=== PATIENT | male | born 1945 | race Caucasian/White ===

== ENCOUNTER 2020-01-31 06:34 | Outpatient (CLI) | payer OTHER, SELFPAY ==
[2020-01-31 07:12] LABS: Basophils Percent Auto 0.7 % (0.2-1.2); Eosinophils Absolute Auto 0.1 K/mm3 (0-0.3); Eosinophils Percent Auto 1.9 % (0-4.4); Hematocrit 42.3 % (42.0-52.0); Hemoglobin 14.2 g/dL (14.0-18.0); Immature Granulocyte Absolute 0.02 K/mm3 (0.00-0.031); Immature Granulocyte Percent A 0.3 % (0-0.5); Lymphocytes Absolute Auto 1.46 K/mm3 (0.9-3.2); Lymphocytes Percent Auto 25.3 % (18.3-44.2); Mean Corpuscular HGB Conc 33.6 g/dl (32-36); Mean Corpuscular Hemoglobin 31.4 pg (26-34); Mean Corpuscular Volume 93.6 fl (80-100); Mean Platelet Volume 10.2 fl (7.4-10.4); Monocytes Absolute Auto 0.7 K/mm3 (0.1-0.6); Monocytes Percent Auto 12.8 % (2.6-8.5); Neutrophils Absolute Auto 3.4 K/mm3 (1.3-6.7); Platelet Count Result 160 k/mm3 (150-375); Red Blood Count 4.52 M/mm3 (4.6-6.20); Red Cell Distribution Width 12.7 % (11.5-14.5); White Blood Count 5.8 K/mm3 (4.5-10.0)
[2020-01-31 07:25] LABS: Alanine Aminotransferase 15 U/L (4-50); Albumin Level 4.4 g/dL (3.5-5.1); Alkaline Phosphatase 82 U/L (38-126); Anion Gap 7 mmol/L (8-16); Aspartate Amino Transferase 22 U/L (17-59); Bilirubin,Total 0.5 mg/dL (0.2-1.3); Blood Urea Nitrogen 20 mg/dL (9-20); Calcium 9.8 mg/dL (8.4-10.2); Carbon Dioxide 30 mmol/L (22-30); Chloride 102 mmol/L (98-107); Estimated Glomerular Filt Rate 59; Glucose 70 mg/dL (75-110); Potassium 4.3 mmol/L (3.4-5.0); Sodium 139 mmol/L (137-145)
== END 2020-01-31 06:35 | disposition home or self-care (01) ==
PROVIDERS: PCP Internal Medicine; Visit Provider Internal Medicine
DX: E03.9 Hypothyroidism, unspecified (principal); R23.2 Flushing
CPT/HCPCS: 36415; 80053; 84443; 85025

== ENCOUNTER 2020-02-03 06:53 | Outpatient (CLI) | payer OTHER, SELFPAY | END 2020-02-03 06:54 | disposition home or self-care (01) | LOC: ANHLAB 06:55 | PROVIDERS: PCP Internal Medicine; Visit Provider Internal Medicine | DX: R23.2 Flushing (principal) | CPT/HCPCS: 36415; 83520 ==

== ENCOUNTER 2020-02-05 06:33 | Outpatient (CLI) | payer OTHER, SELFPAY | END 2020-02-05 06:34 | disposition home or self-care (01) | PROVIDERS: PCP Internal Medicine; Visit Provider Internal Medicine | DX: R23.2 Flushing (principal) | CPT/HCPCS: 83497 ==

== ENCOUNTER 2020-09-24 12:30 | Outpatient (CLI) | payer OTHER, SELFPAY ==
--- NOTE | 2020-09-24 12:52 | ECHO_ITS ---
Patient Info Name: Nelson Friedman Young Age: 74 years : 1945 Gender: Male Ht: 70 in Wt: 160 lbs BSA: 1.89 m2 HR: 68 bpm BP: 143 / 81 mmHg Technical Quality: Good Exam Date: 09/24/2020 1:29 PM Exam Location: [facility] Patient Status: Outpatient Admit Date: 09/24/2020 Staff Ordering Physician: Abiel Siegel APRN [employer] Supervisor: Rey Gong RDCS, RT Attending Provider: Abiel Siegel APRN Referring Physician: Robbin CANTU; Exam Type: CA echo doppler color flow Study Info Indications R01.1 - Cardiac murmur, unspecified Complete two-dimensional, color flow and Doppler transthoracic echocardiogram is performed. Strain analysis performed. Summary 1. Complete two-dimensional, color flow and Doppler transthoracic echocardiogram is performed. 2. Left ventricular chamber dimension is normal. 3. Left ventricular systolic function is normal, estimated at 60-65%. 4. There is mildly increased left ventricular wall thickness. 5. The left ventricular diastolic function is grade I diastolic dysfunction. 6. E/e' 12 is mildly elevated. 7. Global longitudinal strain is normal at -18.8%. 8. There is severe aortic valve sclerosis. 9. There is mild aortic valve regurgitation. 10. There is critical aortic valve stenosis with a peak velocity of 559 cm/s, mean gradient of 64 mmHg, and aortic valve area of 0.5 cm2. 11. There is mild to moderate mitral valve regurgitation. 12. There is trace tricuspid valve regurgitation. 13. No pulmonary hypertension, estimated pulmonary arterial systolic pressure is 35 mmHg. 14. Dilated inferior vena cava with >50% collapse upon inspiration consistent with elevated right atrial pressure, 10 mmHg. Left Ventricle E/e' 12 is mildly elevated. Global longitudinal strain is normal at -18.8%. Left ventricular chamber dimension is normal. Left ventricular systolic function is normal, estimated at 60-65%. There is mildly increased left ventricular wall thickness. The left ventricular diastolic function is grade I diastolic dysfunction. Right Ventricle Right ventricular systolic function is normal and with normal TAPSE 3.0 cm. Right ventricular chamber dimension is normal. Left Atria Left atrial chamber dimension is normal. Right Atria Right atrial chamber dimension is normal. Aortic Valve There is critical aortic valve stenosis with a peak velocity of 559 cm/s, mean gradient of 64 mmHg, and aortic valve area of 0.5 cm2. The aortic valve is probable trileaflet. There is severe aortic valve sclerosis. There is mild aortic valve regurgitation. Pulmonic Valve There is no pulmonic regurgitation. Mitral Valve There is no mitral valve stenosis. There is mild to moderate mitral valve regurgitation. Tricuspid Valve There is trace tricuspid valve regurgitation. No pulmonary hypertension, estimated pulmonary arterial systolic pressure is 35 mmHg. Pericardium/Pleural There is no pericardial effusion. Inferior Vena Cava Dilated inferior vena cava with >50% collapse upon inspiration consistent with elevated right atrial pressure, 10 mmHg. Aorta The aortic root size at the sinus of Valsalva is normal. Left Ventricular Outflow Tract Name Value Normal LVOT 2D LVOT Diameter
== END 2020-09-24 12:31 | disposition home or self-care (01) ==
PROVIDERS: PCP Internal Medicine; Visit Provider Nurse Practitioner
DX: R01.1 Cardiac murmur, unspecified (principal); I08.3 Combined rheumatic disorders of mitral, aortic and tricuspid valves; R93.1 Abnormal findings on diagnostic imaging of heart and coronary circulation
CPT/HCPCS: 93306

== ENCOUNTER 2020-09-28 15:59 | Outpatient (CLI) | payer OTHER, SELFPAY ==
[2020-09-28 16:23] LABS: Basophils Percent Auto 0.6 % (0.2-1.2); Eosinophils Absolute Auto 0.1 K/mm3 (0-0.3); Eosinophils Percent Auto 1.4 % (0-4.4); Hemoglobin 14.1 g/dL (14.0-18.0); Immature Granulocyte Absolute 0.05 K/mm3 (0.00-0.031); Immature Granulocyte Percent A 0.7 % (0-0.5); Lymphocytes Absolute Auto 1.43 K/mm3 (0.9-3.2); Lymphocytes Percent Auto 20.3 % (18.3-44.2); Mean Corpuscular HGB Conc 33.6 g/dl (32-36); Mean Corpuscular Hemoglobin 31.3 pg (26-34); Mean Corpuscular Volume 93.1 fl (80-100); Mean Platelet Volume 10.2 fl (7.4-10.4); Monocytes Absolute Auto 0.8 K/mm3 (0.1-0.6); Monocytes Percent Auto 11.8 % (2.6-8.5); Neutrophils Absolute Auto 4.6 K/mm3 (1.3-6.7); Neutrophils Percent Auto 65.2 % (45.5-73.1); Platelet Count Result 175 k/mm3 (150-375); Red Blood Count 4.51 M/mm3 (4.6-6.20); Red Cell Distribution Width 12.5 % (11.5-14.5)
[2020-09-28 16:32] LABS: Alanine Aminotransferase 13 U/L (4-50); Albumin Level 4.3 g/dL (3.5-5.1); Alkaline Phosphatase 83 U/L (38-126); Anion Gap 9 mmol/L (8-16); Aspartate Amino Transferase 24 U/L (17-59); Bilirubin,Total 0.5 mg/dL (0.2-1.3); Blood Urea Nitrogen 25 mg/dL (9-20); Calcium 9.4 mg/dL (8.4-10.2); Carbon Dioxide 26 mmol/L (22-30); Chloride 102 mmol/L (98-107); Estimated Glomerular Filt Rate > 60; Glucose 95 mg/dL (75-110); Potassium 4.3 mmol/L (3.4-5.0); Sodium 137 mmol/L (137-145)
== END 2020-09-28 16:00 | disposition home or self-care (01) ==
PROVIDERS: PCP Internal Medicine; Visit Provider Internal Medicine Cardiovascular Disease
DX: I35.0 Nonrheumatic aortic (valve) stenosis (principal)
CPT/HCPCS: 36415; 80053; 85025

== ENCOUNTER 2020-10-03 06:17 | Emergency (ER) | payer OTHER, SELFPAY ==
--- NOTE | ~2020-10-03 | XR_ITS ---
EXAMINATION: XR chest 2V DATE: 10/03/2020 06:54 INDICATION: Shortness of breath TECHNIQUE: AP and lateral views of the chest are obtained. COMPARISON: 09/02/2015 FINDINGS: The lungs are free of acute opacities. There is no pleural effusion or pneumothorax. The ca rdiomediastinal silhouette is normal. There is moderate thoracic spondylosis. IMPRESSION: 1. No acute cardiopulmonary abnormality. Reviewed, dictated and finalized at location A.
[2020-10-03 06:23] VITALS: BP 118/84; PULSE 90; RESP 18; TEMP 36.6; O2SAT 99
--- NOTE | 2020-10-03 06:33 | ECG_ITS ---
Measurements Intervals [place] Rate: 89 P: 50 MA: 161 QRS: -53 QRSD: 90 T: 11 QT: 361 QTc: 441 Interpretive Statements SINUS RHYTHM LEFT AXIS DEVIATION ANTEROSEPTAL INFARCT, AGE INDETERMINATE BASELINE ARTIFACT- II, III, AVR, AVF, V1-V2 ABNORMAL ECG Electronically Signed On 10-03-2020 6:56:17 CDT by Ambrocio Hinton D.O.
--- NOTE | 2020-10-03 06:45 | ED.SOB ---
HPI - SOB/Dyspnea General Chief Complaint: Shortness of Breath/Dyspnea <Juan Alamo MD - Last Filed: 10/03/20 06:48> Stated Complaint: sob <Juan Alamo MD - Last Filed: 10/03/20 06:48> Time Seen by Provider: 10/03/20 06:28 <Juan Alamo MD - Last Filed: 10/03/20 06:48> History of Present Illness HPI Narrative: Patient is a 74-year-old male who presents ER with shortness of breath. Woke up at 3 AM feeling very short of breath. Reports he felt like his is able to calm him down by having him take deep breaths. [place] like he was having some chest pressure at the time. Patient recently diagnosed with severe aortic stenosis and is undergoing work-up for possible valve replacement. He underwent cardiac catheterization on 10/01/[address] at [facility] by Dr. Bui. He is currently seeing Dr. Campbell here. Resting comfortably at this time free of CP/SOA. <Juan Alamo MD - Last Filed: 10/03/20 06:48> Related Data Home Medications: Home Medications Medication Instructions Recorded Confirmed doxycycline hyclate 20 mg capsule 40 mg PO DAILY cap 09/03/20 09/03/20 fluticasone propionate 50 2 spray NASAL DAILY PRN ml 09/03/20 09/03/20 mcg/actuation nasal spray,suspension loratadine 10 mg tablet 10 mg PO DAILY PRN tablet 09/03/20 09/03/20 <Juan Alamo MD - Last Filed: 10/03/20 06:48> Allergies/Adverse Reactions: Allergies Allergy/AdvReac Type Severity Reaction Status Date / Time No Known Allergies Allergy Verified 09/03/20 08:08 <Juan Alamo MD - Last Filed: 10/03/20 06:48> Review of Systems Review of Systems: All systems reviewed & are unremarkable except as noted in HPI and below <Juan Alamo MD - Last Filed: 10/03/20 06:48> Constitutional: Constitutional: Denies chills, Denies fever(s) and Denies weakness <Juan Alamo MD - Last Filed: 10/03/20 06:48> ENT: Denies nasal congestion and Denies sore throat <Juan Alamo MD - Last Filed: 10/03/20 06:48> Cardiovascular: Cardiovascular: Reports chest pain, Denies rapid heart rate and Denies radiating jaw, neck or arm pain <Juan Alamo MD - Last Filed: 10/03/20 06:48> Respiratory: Respiratory: Denies cough, Reports dyspnea and Denies wheezing <Juan Alamo MD - Last Filed: 10/03/20 06:48> Gastrointestinal: Gastrointestinal: Denies abdominal pain, Denies nausea and Denies vomiting <Juan Alamo MD - Last Filed: 10/03/20 06:48> PMFSH Past Medical History Medical History: Medical History (Updated 10/03/20 @ 09:37 by Eliud Paez MD) Anxiety Aortic stenosis, severe Benign prostatic hyperplasia without lower urinary tract symptoms Environmental allergies GERD (gastroesophageal reflux disease) Hordeolum externum left lower eyelid Hyperlipidemia Insect bite of lower leg Other and unspecified hyperlipidemia <Juan Alamo MD - Last Filed: 10/03/20 06:48> Family History Family History: Family History Mother Family history of malignant neoplasm Patient's mother is Sibling Patient's sister is in good health Patient's brother is in good health Father Patient's father is <Juan Alamo MD - Last Filed: 10/03/20 06:48> Social History Social History: Social History (Updated 09/03/20 @ 08:13 by Jazzmine Tavares MA) Second hand tobacco smoke exposure: No Alcohol intake: current <Juan Alamo MD - Last Filed: 10/03/20 06:48> Exam Narrative: Exam Narrative: GENERAL: Well-appearing, well-nourished, and in no acute distress. HEAD: Normocephalic, atraumatic. ENT: Mucous membranes moist. CHEST: Clear to auscultation. No respiratory distress. HEART: Regular rate and rhythm. Murmur consistent with aortic stenosis. Normal peripheral pulses. ABDOMEN: Soft, nontender, nondistended. EXTREMITIES: Normal range
[2020-10-03 07:11] LABS: Anion Gap 9 mmol/L (8-16); Blood Urea Nitrogen 26 mg/dL (9-20); Calcium 9.4 mg/dL (8.4-10.2); Carbon Dioxide 27 mmol/L (22-30); Chloride 101 mmol/L (98-107); Estimated CRCL calculation 49 ml/min; Estimated Glomerular Filt Rate 59; Glucose 138 mg/dL (75-110); Potassium 4.1 mmol/L (3.4-5.0); Sodium 137 mmol/L (137-145)
[2020-10-03 07:12] VITALS: BP 99/69; PULSE 84; RESP 20; O2SAT 97
[2020-10-03 07:12] LABS: Basophils Absolute Auto 0.1 K/mm3 (0.0-0.1); Basophils Percent Auto 0.9 % (0.2-1.2); Eosinophils Absolute Auto 0.2 K/mm3 (0-0.3); Eosinophils Percent Auto 2.7 % (0-4.4); Hemoglobin 14.1 g/dL (14.0-18.0); Immature Granulocyte Absolute 0.04 K/mm3 (0.00-0.031); Immature Granulocyte Percent A 0.6 % (0-0.5); Lymphocytes Percent Auto 25.1 % (18.3-44.2); Mean Corpuscular HGB Conc 32.8 g/dl (32-36); Mean Corpuscular Hemoglobin 30.9 pg (26-34); Mean Corpuscular Volume 94.1 fl (80-100); Mean Platelet Volume 10.4 fl (7.4-10.4); Monocytes Absolute Auto 0.6 K/mm3 (0.1-0.6); Monocytes Percent Auto 8.3 % (2.6-8.5); Neutrophils Absolute Auto 4.2 K/mm3 (1.3-6.7); Neutrophils Percent Auto 62.4 % (45.5-73.1); Platelet Count Result 177 k/mm3 (150-375); Red Blood Count 4.57 M/mm3 (4.6-6.20); White Blood Count 6.8 K/mm3 (4.5-10.0)
[2020-10-03 07:23] LABS: NT Pro B Type Natriuretic Pept 318 pg/mL (5-100)
[2020-10-03 08:11] VITALS: BP 101/68; PULSE 82; RESP 20; O2SAT 95
[2020-10-03 09:15] VITALS: BP 118/81; PULSE 75; RESP 20; O2SAT 99
[2020-10-03 09:57] LABS: Troponin I 0.015 ng/mL (0.000-0.034)
[2020-10-03 10:09] VITALS: BP 118/80; PULSE 79; RESP 20; O2SAT 100
== END 2020-10-03 10:11 | disposition home or self-care (01) ==
PROVIDERS: Emergency Medicine; Emergency Provider Family Medicine; PCP Internal Medicine
DX: F41.9 Anxiety disorder, unspecified (principal); R06.02 Shortness of breath; I35.0 Nonrheumatic aortic (valve) stenosis; N40.0 Benign prostatic hyperplasia without lower urinary tract symptoms; K21.9 Gastro-esophageal reflux disease without esophagitis; E78.5 Hyperlipidemia, unspecified; R94.31 Abnormal electrocardiogram [ECG] [EKG]
CPT/HCPCS: 36415; 71046; 80048; 83880; 84484; 85025; 93005; 99284

== ENCOUNTER 2020-11-28 17:11 | Emergency (ER) | payer OTHER, SELFPAY ==
[2020-11-28 17:18] VITALS: BP 141/89; PULSE 84; RESP 16; TEMP 37; O2SAT 100
--- NOTE | 2020-11-28 17:45 | ED.MALEGU ---
HPI - Male Genitourinary General Chief complaint: Urogenital-Male Stated complaint: FLANK PAIN Source: patient, family, RN notes reviewed and old records reviewed Mode of arrival: ambulatory Limitations: no limitations History of Present Illness HPI Narrative: 75 year old male present to express care accompanied by with complaints of lower back pain for the past 2 days and some chills noted this morning, denies any known fevers, Patient states that he is concerned that he has UTI infection and has increased his oral intake of water and cranberry juice. He reports that he does have some prostate issues and has to get up frequently during the night to urinate. Patient is scheduled to have Gema valve surgery at [facility] on and concerned of possible UTI. He is to have COVID testing either tomorrow or Monday in preparation of surgical procedure. Related Data Home Medications Medication Instructions Recorded Confirmed fluticasone propionate 50 2 spray NASAL DAILY PRN ml 09/03/20 11/28/20 mcg/actuation nasal spray,suspension aspirin [Adult Aspirin] 81 mg PO DAILY 11/28/20 11/28/20 cetirizine [Zyrtec] 10 mg PO PRN PRN 11/28/20 11/28/20 Allergies Allergy/AdvReac Type Severity Reaction Status Date / Time No Known Allergies Allergy Verified 11/28/20 17:20 Review of Systems Review of Systems: CONSTITUTIONAL: Denies fever, positive chills, or sweats. EYES: Denies visual changes, redness, or discharge. ENT: Denies rhinorrhea, congestion, sore throat, or otalgia. CARDIOVASCULAR: Denies chest pain, palpitations, or edema. RESPIRATORY: Denies cough or dyspnea. GASTROINTESTINAL: Denies abdominal pain, nausea, vomiting, or diarrhea. GENITOURINARY: Denies dysuria or visible hematuria. SKIN: Denies rash or itching. MUSCULOSKELETAL: positive for lower back pain, no joint pain, or myalgia. NEUROLOGIC: Denies headache, numbness, or weakness. PSYCHIATRIC: Positive for history of anxiety or depression. All systems reviewed & are unremarkable except as noted in HPI and below [facility] Past Medical History Medical History (Updated 11/28/20 @ 18:58 by Maribeth Flynn NP) Anxiety Aortic stenosis, severe Benign prostatic hyperplasia without lower urinary tract symptoms Environmental allergies GERD (gastroesophageal reflux disease) Hordeolum externum left lower eyelid Hyperlipidemia Insect bite of lower leg Other and unspecified hyperlipidemia Surgical History Surgical History (Updated 11/28/20 @ 18:58 by Maribeth Flynn NP) History of surgery on upper extremity right arm Family History Family History Mother Family history of malignant neoplasm Patient's mother is Sibling Patient's sister is in good health Patient's brother is in good health Father Patient's father is Social History Social History (Updated 11/28/20 @ 18:59 by Maribeth Flynn NP) Smoking status: Never smoker Second hand tobacco smoke exposure: No Alcohol intake: current Alcohol use details: wine rarely Substance use: never Living arrangements: with family Gender identity (if verbalized by the patient): Male Comments At time of signature, agree with nursing past medical, surgical, social and family history. There is no relevant family history pertinent to the presenting complaint Exam Narrative: GENERAL: Well-appearing, well-nourished, and in no acute distress. HEAD: Normocephalic, atraumatic. EYES: PERRLA and EOMI. ENT: Nares clear, no rhinorrhea or epistaxis. Mucous membranes moist. NECK: Supple. no lymphadenopathy CHEST: Clear to auscultation. No respiratory distress.SAO2 100% on room air HEART: Regular rate and rhythm. No murmur heard. Normal peripheral pulses. ABDOMEN: Soft, nontender on palpation, nondistended, normal active bowel sounds.no CVA tenderness on palpation EXTREMITIES: Normal range of motion
== END 2020-11-28 18:12 | disposition home or self-care (01) ==
PROVIDERS: Emergency Provider Registered Nurse; PCP Internal Medicine
DX: K21.9 Gastro-esophageal reflux disease without esophagitis (principal); E78.5 Hyperlipidemia, unspecified; F41.9 Anxiety disorder, unspecified; I35.0 Nonrheumatic aortic (valve) stenosis; N39.0 Urinary tract infection, site not specified
CPT/HCPCS: 81003; 87086; 87088; 99213; G0463

== ENCOUNTER 2021-02-11 15:00 | Outpatient (RCR) | payer OTHER, SELFPAY ==
[2021-02-02 14:46] VITALS: PULSE 66
--- NOTE | 2021-02-17 15:38 | PCCPR ---
Absent without call Spoke with Nelson states he and the have sore throats and colds. He also mentioned he was thinking he could continue his exercise at home. States it is difficult for his to bring him and pick him up 1 hr later. Encouraged him to discuss it with his MD since has only been here a total of 6 sessions. Requested he let us know his decision and reminded him he should not come to rehab with any of his current symptoms.
--- NOTE | 2021-02-25 11:40 | PCCPR ---
LEFT MESSAGE- Called Nelson to check in and for an update on if he was planning on returning. Had mentioned discharging and has not returned since being absent last week. Voicemail left asking that he return our call and let us know his plan.
--- NOTE | 2021-03-01 15:13 | PCCPR ---
Discharge Spoke with Nelson states he is working out at home. He has a TM, Rec bike and some free weights he is using at home and does not plan to return.
== END 2021-03-01 15:46 | disposition home or self-care (01) ==
LOC: ANHCPREHAB 15:00
PROVIDERS: PCP Internal Medicine; Visit Provider Internal Medicine Cardiovascular Disease
DX: Z95.2 Presence of prosthetic heart valve (principal)
CPT/HCPCS: 93798

== ENCOUNTER 2021-03-03 06:33 | Outpatient (CLI) | payer OTHER, SELFPAY ==
[2021-03-03 07:51] LABS: Alanine Aminotransferase 19 U/L (4-50); Albumin Level 4.4 g/dL (3.5-5.1); Alkaline Phosphatase 107 U/L (38-126); Anion Gap 9 mmol/L (8-16); Aspartate Amino Transferase 28 U/L (17-59); Bilirubin,Total 0.5 mg/dL (0.2-1.3); Blood Urea Nitrogen 20 mg/dL (9-20); Calcium 9.7 mg/dL (8.4-10.2); Carbon Dioxide 27 mmol/L (22-30); Chloride 103 mmol/L (98-107); Cholesterol 185 mg/dL (0-200); Estimated Glomerular Filt Rate > 60; Glucose 101 mg/dL (65-110); HDL Direct 58 mg/dL; Potassium 4.2 mmol/L (3.4-5.0); Sodium 139 mmol/L (137-145); Triglycerides 78 mg/dL (<150)
[2021-03-03 08:11] LABS: LDL Cholesterol Direct 101 mg/dL
== END 2021-03-03 06:34 | disposition home or self-care (01) ==
LOC: ANHLAB 06:35
PROVIDERS: PCP Internal Medicine; Visit Provider Nurse Practitioner
DX: E78.5 Hyperlipidemia, unspecified (principal); Z13.29 Encounter for screening for other suspected endocrine disorder
CPT/HCPCS: 36415; 80053; 80061; 84443

== ENCOUNTER 2021-09-23 06:35 | Outpatient (CLI) | payer OTHER, SELFPAY ==
[2021-09-23 07:24] LABS: Alanine Aminotransferase 23 U/L (6-50); Albumin Level 4.4 g/dL (3.5-5.1); Alkaline Phosphatase 108 U/L (38-126); Anion Gap 7 mmol/L (8-16); Aspartate Amino Transferase 30 U/L (17-59); Bilirubin,Total 0.6 mg/dL (0.2-1.3); Blood Urea Nitrogen 19 mg/dL (9-20); Calcium 8.9 mg/dL (8.4-10.2); Carbon Dioxide 27 mmol/L (22-30); Chloride 103 mmol/L (98-107); Cholesterol 129 mg/dL (0-200); Estimated Glomerular Filt Rate 59; Glucose 94 mg/dL (65-110); HDL Direct 64 mg/dL; Sodium 137 mmol/L (137-145); Triglycerides 80 mg/dL (<150)
[2021-09-23 07:35] LABS: LDL Cholesterol Direct 42 mg/dL
[2021-09-23 07:53] LABS: Prostate Specific Antigen 0.3 ng/mL (< OR = 4.0)
== END 2021-09-23 06:36 | disposition home or self-care (01) ==
PROVIDERS: PCP Internal Medicine; Visit Provider Internal Medicine
DX: E78.5 Hyperlipidemia, unspecified (principal); I95.9 Hypotension, unspecified; Z12.5 Encounter for screening for malignant neoplasm of prostate
CPT/HCPCS: 36415; 80053; 80061; 84153; G0103

== ENCOUNTER 2022-04-14 06:51 | Outpatient (CLI) | payer OTHER, SELFPAY ==
[2022-04-14 07:33] LABS: Alanine Aminotransferase 25 U/L (6-50); Albumin Level 4.5 g/dL (3.5-5.1); Alkaline Phosphatase 109 U/L (38-126); Anion Gap 8 mmol/L (8-16); Aspartate Amino Transferase 34 U/L (17-59); Bilirubin,Total 0.8 mg/dL (0.2-1.3); Blood Urea Nitrogen 19 mg/dL (9-20); Calcium 9.1 mg/dL (8.4-10.2); Carbon Dioxide 27 mmol/L (22-30); Chloride 105 mmol/L (98-107); Cholesterol 134 mg/dL (0-200); Estimated Glomerular Filt Rate > 60; Glucose 97 mg/dL (65-110); HDL Direct 61 mg/dL; Potassium 4.2 mmol/L (3.4-5.0); Sodium 140 mmol/L (137-145); Triglycerides 73 mg/dL (<150)
[2022-04-14 07:45] LABS: LDL Cholesterol Direct 43 mg/dL
== END 2022-04-14 06:52 | disposition home or self-care (01) ==
LOC: ANHLAB 06:52
PROVIDERS: PCP Internal Medicine; Visit Provider Internal Medicine
DX: E78.5 Hyperlipidemia, unspecified (principal)
CPT/HCPCS: 36415; 80053; 80061

== ENCOUNTER 2022-04-18 15:39 | Emergency (ER) | payer OTHER, SELFPAY ==
[2022-04-18 16:19] VITALS: BP 142/83; PULSE 78; RESP 16; TEMP 37.6; O2SAT 100
--- NOTE | 2022-04-18 16:41 | ED.DENTAL ---
HPI - Dental/Oral General Chief complaint: Dental/Oral Stated complaint: mouth sore bleeding Time Seen by Provider: 04/18/22 16:40 Source: patient Mode of arrival: ambulatory History of Present Illness HPI Narrative: 76-year-old male with a history of TAVR, on Plavix, presented for complaint of right lower gum bleeding since last night. He states he believes he scraped the gum while brushing his teeth last evening. States he woke at 0200 with blood clots inside his mouth. Since then he has been wiping the blood away with wash cloths. Denies n/v/d/f/c. Complaint: tooth pain Related Data Home Medications Medication Instructions Recorded Confirmed aspirin 81 mg tablet 81 mg PO DAILY 11/28/20 04/18/22 cetirizine 10 mg tablet (Zyrtec) 10 mg PO PRN PRN Congestion 11/28/20 04/18/22 clopidogrel 75 mg tablet 75 mg PO DAILY 01/21/21 04/18/22 atorvastatin 20 mg tablet 20 mg PO DAILY 09/15/21 04/18/22 Allergies Allergy/AdvReac Type Severity Reaction Status Date / Time No Known Allergies Allergy Verified 04/18/22 16:25 Review of Systems Review of Systems: CONSTITUTIONAL: Denies body aches, fever, chills ENT: Denies rhinorrhea, congestion, sore throat, or otalgia. CARDIOVASCULAR: Denies chest pain, palpitations RESPIRATORY: Denies cough or dyspnea. SKIN: Denies rash, itching, or wounds. MUSCULOSKELETAL: Denies myalgia. NEUROLOGIC: Denies headache, numbness, tingling, or weakness. [facility] Past Medical History Medical History Anxiety Benign prostatic hyperplasia without lower urinary tract symptoms Environmental allergies GERD (gastroesophageal reflux disease) Hordeolum externum left lower eyelid Hyperlipidemia Insect bite of lower leg Murmur Other and unspecified hyperlipidemia Surgical History Surgical History History of surgery on upper extremity right arm S/P TAVR (transcatheter aortic valve replacement) Family History Family History Mother Family history of malignant neoplasm Patient's mother is Sibling Patient's sister is in good health Patient's brother is in good health Father Patient's father is Social History Social History Smoking status: Never smoker Second hand tobacco smoke exposure: No Alcohol intake: current Alcohol use details: wine rarely Substance use: never Lack of Transportation: No Lack of Food: Never True Current Housing: I Have Housing Concerned About Future Housing: No Difficulty Paying Gas/Electric Bills: No Difficulty Paying for Meds: No Currently Unemployed: No Education: Associate Degree Difficulty w/ Childcare or Family Care: No Gender identity (if verbalized by the patient): Male Comments At time of signature, I have reviewed and agree with nursing past medical, surgical, social and family history unless otherwise noted. Please see nursing chart for further information. There is no relevant family history pertinent to the presenting complaint Exam Narrative: GENERAL: Appears in pain; no acute distress. HEAD: Normocephalic, atraumatic. EYES: EOMI. No redness or drainage. Conjunctivae normal. ENT: Right lower lateral gum bleeding at approx #29; no apparent medial bleeding. Mucous membranes pink and moist. TMs normal bilaterally. Throat normal. Uvula midline. NECK: Normal AROM. No lymphadenopathy. CHEST: No respiratory distress. Clear to auscultation. HEART: Regular rate and rhythm. No murmur appreciated. SKIN: Warm, dry, no rash. Normal skin turgor. NEURO: Alert and oriented x3. Gait steady. Course Course Emergency Course: Patient is aware of diagnosis, understands and agrees to treatment plan. Anticipatory guidance given. Patient agrees to follow-up as dir
== END 2022-04-18 17:01 | disposition home or self-care (01) ==
PROVIDERS: Emergency Provider Nurse Practitioner Family; PCP Internal Medicine
DX: K06.8 Other specified disorders of gingiva and edentulous alveolar ridge (principal); K21.9 Gastro-esophageal reflux disease without esophagitis; E78.5 Hyperlipidemia, unspecified; R01.1 Cardiac murmur, unspecified; N40.0 Benign prostatic hyperplasia without lower urinary tract symptoms; Z79.82 Long term (current) use of aspirin; Z79.01 Long term (current) use of anticoagulants; Z95.2 Presence of prosthetic heart valve
CPT/HCPCS: 99211; G0463

== ENCOUNTER 2022-08-01 09:02 | Outpatient (CLI) | payer OTHER, SELFPAY ==
[2022-08-01 09:45] LABS: Hematocrit 43.4 % (42.0-52.0); Hemoglobin 14.3 g/dL (14.0-18.0); Mean Corpuscular HGB Conc 32.9 g/dl (32-36); Mean Corpuscular Hemoglobin 31.5 pg (26-34); Mean Corpuscular Volume 95.6 fl (80-100); Mean Platelet Volume 10.3 fl (7.4-10.4); Platelet Count Result 168 k/mm3 (150-375); Red Blood Count 4.54 M/mm3 (4.6-6.20); Red Cell Distribution Width 12.7 % (11.5-14.5); White Blood Count 6.4 K/mm3 (4.5-10.0)
[2022-08-01 10:01] LABS: Alanine Aminotransferase 24 U/L (6-50); Albumin Level 4.4 g/dL (3.5-5.1); Alkaline Phosphatase 108 U/L (38-126); Anion Gap 8 mmol/L (8-16); Aspartate Amino Transferase 30 U/L (17-59); Bilirubin,Total 0.6 mg/dL (0.2-1.3); Blood Urea Nitrogen 22 mg/dL (9-20); Calcium 8.8 mg/dL (8.4-10.2); Carbon Dioxide 29 mmol/L (22-30); Chloride 100 mmol/L (98-107); Estimated Glomerular Filt Rate > 60; Glucose 82 mg/dL (65-110); Magnesium 2.3 mg/dL (1.6-2.3); Potassium 3.7 mmol/L (3.4-5.0); Sodium 137 mmol/L (137-145)
[2022-08-01 10:27] LABS: Free T4 Free Thyroxine 1.03 ng/mL (0.78-2.19); Vitamin D 25 Hydroxy 52.3 ng/mL
[2022-08-01 11:05] LABS: Folic Acid 17.8 ng/mL (2.76->20)
== END 2022-08-01 09:03 | disposition home or self-care (01) ==
PROVIDERS: PCP Internal Medicine; Visit Provider Internal Medicine Rheumatology
DX: D50.9 Iron deficiency anemia, unspecified (principal); E53.8 Deficiency of other specified B group vitamins; R53.83 Other fatigue; Z51.81 Encounter for therapeutic drug level monitoring; E55.9 Vitamin D deficiency, unspecified
CPT/HCPCS: 36415; 80053; 82306; 82607; 82728; 82746; 83735; 84439; 84443; 85027

== ENCOUNTER → 2022-08-25 11:59 | Outpatient (CLI) | payer OTHER, SELFPAY ==
--- NOTE | ~2022-08-25 | MR_ITS ---
MRI of the brain Clinical History: Tremor Technique: Axial and sagittal T1-weighted images were acquired. These were followed by axial T2-weigh fritz, diffusion weighted, gradient, and FLAIR images. Findings: There is no acute infarct, intracranial hemorrhage, or mass lesion identified. There are mi ld to moderate chronic progressive ischemic changes in the periventricular white matter bilaterally. Ventricles and subarachnoid spaces are mildly dilated. Orbits are unremarkable. Paranasal sinuses and right mastoid air cell are clear. Minimal fluid present in left mastoid air cells. Major intracrania l flow voids appear intact. Sagittal midline structures are intact. IMPRESSION: No acute intracranial abnormality. Mild to moderate chronic microvascular ischemic changes and mild generalized atrophy. Reviewed, dictated and finalized at [facility]. IMPRESSION: No acute intracranial abnormality. Mild to moderate chronic microvascular ischemic changes and mild generalized at [facility].
--- NOTE | ~2022-08-25 | MR_ITS ---
EXAMINATION: MR lumbar spine wo con DATE: 08/25/2022 13:22 INDICATION: Low back pain. TECHNIQUE: Magnetic resonance imaging (MRI) of the lumbar spine was performed without intravenous con trast. Sequences included sagittal T2-weighted FSE, sagittal T2-weighted FS FSE, sagittal T1-weighted FSE, and axial T2-weighted FSE. COMPARISON: None FINDINGS: There is 6 degrees dextrocurvature of thoracolumbar spine. There is mild chronic anterior w edging of T12, L1, and L2 vertebral bodies, likely physiologic. There is mildly decreased disc height at L2-L3, moderately decreased disc height at L3-L4, and mildly decreased disc height at L4-L5. The distal spinal cord signal intensity is normal. The conus medullaris is at L1. The following disc leve ls are specifically discussed: L1-L2: The disc does not extend beyond the endplate margin. There is no facet joint osteoarthritis. T here is no neural foraminal stenosis. There is no central canal stenosis. L2-L3: The disc is bulging and has an annular fissure. There is mild bilateral facet joint osteoarthr itis. There is mild bilateral neural foraminal stenosis. There is no central canal stenosis. L3-L4: The disc is bulging and has an annular fissure. There is mild right facet joint osteoarthritis . There is moderate right and mild left neural foraminal stenosis. There is mild central canal stenos is. L4-L5: The disc is bulging and has an annular fissure There is mild bilateral facet joint osteoarthri tis. There is mild bilateral neural foraminal stenosis. There is mild central canal stenosis. L5-S1: The disc is bulging There is severe right and moderate left facet joint osteoarthritis. There is mild bilateral neural foraminal stenosis. There is mild central canal stenosis. IMPRESSION: 1. Moderate lumbar spondylosis. Reviewed, dictated and finalized at location E.
== END ==
PROVIDERS: PCP Family Medicine; Visit Provider Internal Medicine Rheumatology
DX: R25.1 Tremor, unspecified (principal); M47.896 Other spondylosis, lumbar region
CPT/HCPCS: 70551; 72148

== ENCOUNTER 2022-12-01 14:00 | Outpatient (RCR) | payer OTHER, SELFPAY ==
--- NOTE | 2022-11-03 14:06 | OPREHPOC ---
Outpatient Therapy Plan of Care This is a Multidisciplinary Plan of Care that may contain components documented by all disciplines (PT, OT, and ST.) PT Problem 1 PT Problem #1 Knowledge Deficit PT Goal 1 Goal 1* indep with home exercises PT Problem 2 PT Problem #2 Pain PT Goal 1 Goal 1* pt report pain rating of 6/10 at worst in back 2* pt report standing/walking tolerance of 30 minutes PT Problem 3 PT Problem #3 Impaired Range of Motion PT Goal 1 Goal increase hamstring length with supine SLR 1* R 50' 2* L 50' increase anterior hip-quad length with prone knee flexion 3* R 110' 4* L 110' PT Problem 4 PT Problem #4 Impaired Strength PT Goal 1 Goal 1* pt able to perform mat and standing hip and trunk exercises 20 reps with good stability
--- NOTE | 2022-11-03 14:06 | PTOPEVAL1 ---
Assessment and note entered by Chacha Newsome, PT Evaluation Information Assessment Status Evaluation Diagnosis Parkinson's disease, low back pain Onset October 15, 2022 Subjective Information brushing teeth in AM, leaning over and then back started hurting; has improved a little, then returns; had to lie flat on his back because hurt so bad; MRI lumbar: 6' dextrocurvature T-L spine; anterior wedge T 12-L1-2; decreased disc height; mild to moderate bulges, facet joint OAM, canal stenosis; ACTIVITY: due Parkinson's limited with bending forward, can do light home tasks; home with ; requires assist with showering due to cannot bend forward because of Parkinson's, heart issues-- fatigue easily and back pain; sit to stand gets dizzy; (educated on caution with initial standing, monitor BP, fluids, meds--can all cause dizziness) have upright0 bicycle and treadmill at home; Goal: get healthier back, move better and not have back pain; Reported Pain Level Pain Score Self Report Additional Pain Score Comments pain range in the past week 0-10/10- so bad could not get out of bed; R and L lumbar, no radicular pain searing, hot pain increase pain: bend forward, standing walk tolerance 10-15 min; decrease pain: lie down and rest, heat, tylenol-- not really help Assessment PT Clinical Summary Nelson has the diagnosis of low back pain and Parkinson's. He wants to address his low back pain first, having issues with it, limiting his walking and activity level. Recent MRI had degenerative changes. With the evaluation, he has decreased strength of trunk and hips, with tightness over both hamstrings and quads. Skilled PT services are indicated for modalities to decrease pain, therapeutic exercises to increase strength and flexibility of trunk and hips, with education for
--- NOTE | 2022-12-01 14:50 | PTOPDC ---
Assessment and note entered by Chacha Newsome, PT Evaluation Information Assessment Status Discharge Diagnosis Parkinson's disease, low back pain Onset October 15, 2022 Subjective Information Nelson reports: feeling better, back not hurt as much, stretches help my back; Reported Pain Level Pain Score Self Report Pain Score Self Report Additional Pain Score Comments pain range of 0-7/10; R and L low back; reported walking/standing tolerance 15-20 minutes; decrease pain with rest, sit, stretching, lie flat on back; have not used heat lately---not needed it; discussed and educated on home electrical stim unit--pad placement and precautions with use. pt stated he was interested in obtaining a unit; Assessment PT Clinical Summary Nelson has received 9 PT sessions. Compared to the initial evaluation: pain rating has improved at worst rating from 10 to 7/10; reported standing/walking tolerance is the same at 10-15 min; hamstring flexibility is same; increased flexibility of anterior hip/quads with prone knee flexion to 115'; increase strength of trunk and hips with mat exercises; electrical stim and heat help to decrease his pain. Education has been completed for home exercises and pain management--stretch, heat, home stim. The goals were partially achieved. Discharge PT services; he is to continue with his home exercises and monitor activity/rest to manage his pain level. Plan of Care PT Services Indicated No
== END 2023-01-20 12:51 | disposition home or self-care (01) ==
LOC: ANHPT 14:00
PROVIDERS: PCP Family Medicine; Visit Provider Internal Medicine Rheumatology
DX: M54.50 Low back pain, unspecified (principal); G20 Parkinson's disease
CPT/HCPCS: 97014; 97110; 97112; 97161; 97530; G0283

== ENCOUNTER 2023-01-12 07:00 | Outpatient (CLI) | payer OTHER, SELFPAY ==
[2023-01-12 07:59] LABS: Alanine Aminotransferase 8 U/L (6-50); Albumin Level 4.3 g/dL (3.5-5.1); Alkaline Phosphatase 117 U/L (38-126); Anion Gap 8 mmol/L (8-16); Aspartate Amino Transferase 29 U/L (17-59); Bilirubin,Total 0.7 mg/dL (0.2-1.3); Blood Urea Nitrogen 19 mg/dL (9-20); Calcium 9.1 mg/dL (8.4-10.2); Carbon Dioxide 28 mmol/L (22-30); Chloride 99 mmol/L (98-107); Cholesterol 128 mg/dL (0-200); Estimated Glomerular Filt Rate > 60; Glucose 91 mg/dL (65-110); HDL Direct 52 mg/dL; Potassium 4.1 mmol/L (3.4-5.0); Sodium 135 mmol/L (137-145); Triglycerides 58 mg/dL (<150)
[2023-01-12 08:10] LABS: LDL Cholesterol Direct 57 mg/dL
== END 2023-01-12 07:01 | disposition home or self-care (01) ==
LOC: ANHLAB 07:01
PROVIDERS: PCP Family Medicine; Visit Provider Nurse Practitioner
DX: E78.5 Hyperlipidemia, unspecified (principal)
CPT/HCPCS: 36415; 80053; 80061

== ENCOUNTER 2023-03-07 14:05 | Emergency (ER) | payer OTHER, SELFPAY ==
[2023-03-07 14:15] VITALS: BP 122/67; PULSE 78; RESP 16; TEMP 36.5; O2SAT 100
--- NOTE | 2023-03-07 14:32 | ED.URI ---
HPI - URI/Sore Throat General Chief Complaint: Upper Respiratory Infection Stated Complaint: Congestion;Cough Time Seen by Provider: 03/07/23 14:33 Source: patient, family, RN notes reviewed and old records reviewed Mode of arrival: ambulatory Limitations: no limitations History of Present Illness HPI Narrative: 77 year old male who presents to [facility] care with complaints of cough and congestion for about a month with mucous production. states other family members had same symptoms but they have all recovered with antibiotics and steroids but he was stubborn and didn't want to get treated then and now he continues to have lingering cough.He states that he was taking some OTC cough suppressant but then they read that he shoulden't take with parkinsons so he stopped taking it last week. He reports that cough is productive at night and in the morning especially. Patient reports no fevers, or any shortness of breath. MD elicited complaint: cough and other (congestion) Pertinent past history: other (Parkinsons disease, bronchitis) Onset (ago): week(s) (4) Consistency: constant Description of mucous: clear Able to tolerate fluids by mouth: Yes Treatments prior to arrival: other (cough medication) Related Data Home Medications Medication Instructions Recorded Confirmed aspirin 81 mg tablet 81 mg PO DAILY 11/28/20 03/07/23 cetirizine 10 mg tablet (Zyrtec) 10 mg PO PRN PRN Congestion 11/28/20 03/07/23 clopidogrel 75 mg tablet 75 mg PO DAILY 01/21/21 03/07/23 atorvastatin 20 mg tablet 20 mg PO DAILY 09/15/21 03/07/23 carbidopa 25 mg-levodopa 100 mg 1 tablet PO TID 10/05/22 03/07/23 tablet famotidine 20 mg tablet 20 mg PO BID 10/05/22 03/07/23 ferrous sulfate 325 mg (65 mg 325 mg PO DAILY 03/07/23 03/07/23 iron) tablet (FeroSul) Allergies Allergy/AdvReac Type Severity Reaction Status Date / Time No Known Allergies Allergy Verified 03/07/23 14:13 Review of Systems Review of Systems: CONSTITUTIONAL: Denies malaise, chills, sweats, or fever. EYES: Denies visual changes, redness, or discharge. ENT: Reports rhinorrhea, congestion, no sinus pain, no otalgia and no sore throat. CARDIOVASCULAR: Denies chest pain, palpitations, or edema. RESPIRATORY: Reports cough.? Denies dyspnea. GASTROINTESTINAL: Denies abdominal pain, nausea, vomiting, diarrhea SKIN: Denies rash or itching. MUSCULOSKELETAL: Denies myalgia. NEUROLOGIC: Denies headache. All systems reviewed & are unremarkable except as noted in HPI and below PMFSH Past Medical History Medical History (Updated 03/08/23 @ 20:16 by Maribeth Flynn NP) Anxiety Benign prostatic hyperplasia without lower urinary tract symptoms Environmental allergies GERD (gastroesophageal reflux disease) Hordeolum externum left lower eyelid Hyperlipidemia Insect bite of lower leg Murmur Other and unspecified hyperlipidemia Parkinson disease Surgical History Surgical History History of surgery on upper extremity right arm S/P TAVR (transcatheter aortic valve replacement) Family History Family History Mother Family history of malignant neoplasm Patient's mother is Sibling Patient's sister is in good health Patient's brother is in good health Father Patient's father is Social History Social History Smoking status: Never smoker Second hand tobacco smoke exposure: No Alcohol intake: former Alcohol use details: wine rarely Substance use: never Substance use type: does not use Lack of Transportation: No Lack of Food: Never True Current Housing: I Have Housing Concerned About Future Housing: No Difficulty Paying Gas/Electric Bills: No Difficulty Paying for Meds: No Currently Unemployed: No Education: Associate Degree Difficulty
== END 2023-03-07 14:51 | disposition home or self-care (01) ==
PROVIDERS: Emergency Provider Registered Nurse; PCP Family Medicine
DX: J06.9 Acute upper respiratory infection, unspecified (principal); E78.5 Hyperlipidemia, unspecified; G20.A1 Parkinson's disease without dyskinesia, without mention of fluctuations; Z79.899 Other long term (current) drug therapy
CPT/HCPCS: 99213; G0463

== ENCOUNTER 2023-03-31 10:49 | Emergency (ER) | payer OTHER, SELFPAY ==
[2023-03-31 11:16] VITALS: BP 121/85; PULSE 77; RESP 16; TEMP 37.1; O2SAT 96
--- NOTE | 2023-03-31 11:21 | ED.URI ---
HPI - URI/Sore Throat General Chief Complaint: Upper Respiratory Infection Stated Complaint: Covid symptoms Time Seen by Provider: 03/31/23 11:22 Source: patient, RN notes reviewed and old records reviewed Mode of arrival: ambulatory Limitations: no limitations History of Present Illness HPI Narrative: 77-year-old male who presents to [facility] with complaints of head congestion and cough wit some body aches for 3 day duration. Patient reports that daughter and grandchild have COVID and they live in the same household. Patient reports that he has not had any acute fevers, has taken some Tylenol for his symptoms.Patient denies any acute dyspnea or any complaints of nausea ,vomiting or diarrhea. MD elicited complaint: cough, rhinorrhea, nasal congestion and other (bosy aches) Onset (ago): day(s) (day 3 of symptoms) Severity: mild Able to tolerate fluids by mouth: Yes Treatments prior to arrival: acetaminophen Related Data Home Medications Medication Instructions Recorded Confirmed aspirin 81 mg tablet 81 mg PO DAILY 11/28/20 03/31/23 cetirizine 10 mg tablet (Zyrtec) 10 mg PO PRN PRN Congestion 11/28/20 03/31/23 clopidogrel 75 mg tablet 75 mg PO DAILY 01/21/21 03/31/23 atorvastatin 20 mg tablet 20 mg PO DAILY 09/15/21 03/31/23 carbidopa 25 mg-levodopa 100 mg 1 tablet PO TID 10/05/22 03/31/23 tablet famotidine 20 mg tablet 20 mg PO BID 10/05/22 03/31/23 ferrous sulfate 325 mg (65 mg 325 mg PO DAILY 03/07/23 03/31/23 iron) tablet (FeroSul) Allergies Allergy/AdvReac Type Severity Reaction Status Date / Time No Known Allergies Allergy Verified 03/31/23 11:00 Review of Systems Review of Systems: CONSTITUTIONAL: Reports some malaise, chills, sweats, no acute fevers EYES: Denies visual changes, redness, or discharge. ENT: Reports rhinorrhea, congestion, sinus pain, no otalgia and no sore throat. CARDIOVASCULAR: Denies chest pain, palpitations, or edema. RESPIRATORY: Reports cough.? Denies dyspnea. GASTROINTESTINAL: Denies abdominal pain, nausea, vomiting, diarrhea SKIN: Denies rash or itching. MUSCULOSKELETAL: Body aches myalgia. NEUROLOGIC: Denies headache. All systems reviewed & are unremarkable except as noted in HPI and below PMFSH Past Medical History Medical History Anxiety Benign prostatic hyperplasia without lower urinary tract symptoms Environmental allergies GERD (gastroesophageal reflux disease) Hordeolum externum left lower eyelid Hyperlipidemia Insect bite of lower leg Murmur Other and unspecified hyperlipidemia Parkinson disease Surgical History Surgical History History of surgery on upper extremity right arm S/P TAVR (transcatheter aortic valve replacement) Family History Family History Mother Family history of malignant neoplasm Patient's mother is Sibling Patient's sister is in good health Patient's brother is in good health Father Patient's father is Social History Social History Smoking status: Never smoker Second hand tobacco smoke exposure: No Alcohol intake: former Alcohol use details: wine rarely Substance use: never Substance use type: does not use Lack of Transportation: No Lack of Food: Never True Current Housing: I Have Housing Concerned About Future Housing: No Difficulty Paying Gas/Electric Bills: No Difficulty Paying for Meds: No Currently Unemployed: No Education: Associate Degree Difficulty w/ Childcare or Family Care: No Living arrangements: with family Gender identity (if verbalized by the patient): Male Comments At time of signature, agree with nursing past medical, surgical, social and family history. There is no relevant family history pertinen
== END 2023-03-31 11:50 | disposition home or self-care (01) ==
PROVIDERS: Emergency Provider Registered Nurse; PCP Family Medicine
DX: U07.1 COVID-19 (principal); N40.1 Benign prostatic hyperplasia with lower urinary tract symptoms; K21.9 Gastro-esophageal reflux disease without esophagitis; E78.5 Hyperlipidemia, unspecified; R01.1 Cardiac murmur, unspecified; E78.49 Other hyperlipidemia; G20.A1 Parkinson's disease without dyskinesia, without mention of fluctuations; Z79.82 Long term (current) use of aspirin
CPT/HCPCS: 87426; 87804; 99213; C9803; G0463

== ENCOUNTER 2023-08-28 15:15 | Outpatient (RCR) | payer OTHER, SELFPAY ==
--- NOTE | 2023-08-01 14:25 | OPREHPOC ---
Outpatient Therapy Plan of Care This is a Multidisciplinary Plan of Care that may contain components documented by all disciplines (PT, OT, and ST.) PT Problem 1 PT Problem #1 Knowledge Deficit PT Goal 1 Goal *indep with HEP Target Visit 8 PT Problem 2 PT Problem #2 Impaired Functional Mobil PT Goal 1 Goal increase LE strength to improve mobility and balance: 1* pt perform standing exercises R and L LE with 1 UE support x 20 reps 2* single leg standing R x 10 seconds with good stability 3* single leg standing L x 10 seconds with good stability 4* Penn balance score of 56/56 5* pt report NO falls 6* sitting L ankle circles x 20 reps with good control PT Goal 2 Target Visit 8
--- NOTE | 2023-08-01 14:25 | PTOPEVAL1 ---
Assessment and note entered by Chacha Newsome, PT Evaluation Information Assessment Status Evaluation Diagnosis Parkinson's Disease/ decreased balance and gait skills Onset October 2022 Subjective Information In October had skin cancer removed from L Lower leg, had to rest and not walk, got weaker and had falls --2x in the past 6 months- loss of balance when walking in the house; problems with muscles being tight and stiff; problems getting started with motions, once up and walking do OK, but balance not that great. Activity: mostly stay home, have stationary bike and treadmill-- use them regularly; indep with bathing, dressing and light home tasks; does not use an assistive device, but have a cane and wheeled walker at home; GOAL: better balance, move easier Reported Pain Level Pain Score 0: Self Report Additional Pain Score Comments have pain in back, 0-5/10; history of back issues. Assessment PT Clinical Summary Nelson has the diagnosis of Parkinson's with decreased gait and balance skills, onset after having skin cancer removed from L lower leg and had to limit his walking and activity level with recovery. He also has orders for LBP. He wanted to start on balance treatment first. He has had 2 falls in the past 6 months in his home, with loss of balance when walking. He lives at home with his and does not use an assistive device With the evaluation: 5 reps sit/stand time was normal ; Penn balance score 51/56; 2 minute walking test distance of 575'; he has decreased single leg standing and standing balance activities; decreased control of L ankle motions. Skilled PT services are indicated for therapeutic exercises and activities to increase LE strength and dynamic standing balance with education for progression of HEP. Plan of Care Interventions Neuro Re-education,Patient/Caregiver Education, Therapeutic Activities,Therapeutic Exercise PT Services Indicated Yes Treatment Frequency and 2x/wk for 8 visit total Duration
--- NOTE | 2023-08-28 16:00 | PTOPDC ---
Assessment and note entered by Chacha Newsome, PT Discharge Information Assessment Status Discharge Diagnosis Parkinson's Disease/ decreased balance and gait skills Onset October 2022 Subjective Information still have some problems with balance--feel wobbly in the mornings, when first wake up and get moving; have a cane and wheeled walker that can use if feel off balance; have not had any falls; at home, not really have any problems with doing things--some SOB on stairs; have been using my treadmill for 10 min and bicycle for 15 minutes every day, that is when have the SOB going up stairs after doing that; have been walking outside in the grass; Reported Pain Level Pain Score 0: Self Report Assessment PT Clinical Summary Nelson has received 8 PT sessions. Compared to the initial evaluation: increase strength of both R and L LE's; Penn balance score from 51 to 55/56; 2 minute walking test distance of 575 to 600'; single leg standing is 10 sec on R and L with decreased stability; education completed for HEP and safety with mobility. The goals were achieved except single leg standing is unstable. Discharge PT services, he is to continue with his HEP. Plan of Care PT Services Indicated No
== END 2023-08-28 16:47 | disposition home or self-care (01) ==
LOC: ANHPT 15:15
PROVIDERS: PCP Family Medicine; Visit Provider Nurse Practitioner Family
DX: G20.C Parkinsonism, unspecified (principal)
CPT/HCPCS: 97110; 97112; 97116; 97161; 97530

== ENCOUNTER 2023-10-23 07:31 | Emergency (ER) | payer OTHER, SELFPAY ==
--- NOTE | ~2023-10-23 | CT_ITS ---
CT brain wo con Ordering provider: Juan Alamo MD History: 77 years Male with . head injury . Comparison: None. Technique: CT of the head without contrast. Radiation reduction technique utilized. DLP is 681 mGy. FINDINGS: BRAIN PARENCHYMA AND CSF SPACES: Mild leukoaraiosis and diffuse cortical atrophy. Mild atheromatous d isease. No midline shift, mass effect or hemorrhage. The brain parenchyma and CSF spaces are otherwi se normal. VISUALIZED PARANASAL SINUSES: Well aerated. MASTOIDS: Well aerated. BONES: The bones appear intact. SOFT TISSUES: Visualized nasopharynx is normal. Superficial soft tissues are normal. IMPRESSION: No acute intracranial findings. Reviewed, dictated and finalized at location A.
--- NOTE | ~2023-10-23 | XR_ITS ---
XR hip RT 2V w AP pelvis Ordering provider: Juan Alamo MD History: . pain/fall, LATERAL BUMP ON HIP . Comparison: None. FINDINGS: BONES: No acute fracture or dislocation. HIP JOINT SPACES: Mild bilateral hip osteoarthritic changes. SACROILIAC JOINT SPACES/LUMBAR SPINE: The sacroiliac joint spaces are normal. Mild degenerative hernandez es of the visualized lower lumbar spine. PUBIC SYMPHYSIS: Normal. SOFT TISSUES: Normal. IMPRESSION: No acute osseous abnormality pelvis and right hip. Reviewed, dictated and finalized at location A.
[2023-10-23 07:36] VITALS: BP 166/102; PULSE 84; RESP 16; TEMP 36.8; O2SAT 97
--- NOTE | 2023-10-23 09:08 | ED.GENADULT ---
HPI - General Adult General Chief complaint: Fall Stated complaint: fall Time Seen by Provider: 10/23/23 07:40 History of Present Illness HPI narrative: Patient is a 77-year-old male who presents ER after having a fall at home. He was having a nightmare and was up walking when he tripped over a loyda and fell. He struck his head. Denies LOC. he reports that he is on clopidogrel. He also has some mild discomfort to the medial aspect of his right thigh and lateral aspect over the hip. he is still able to walk with a walker. Related Data Home Medications Medication Instructions Recorded Confirmed aspirin 81 mg tablet 81 mg PO DAILY 11/28/20 07/07/23 cetirizine 10 mg tablet (Zyrtec) 10 mg PO PRN PRN Congestion 11/28/20 07/07/23 clopidogrel 75 mg tablet 75 mg PO DAILY 01/21/21 07/07/23 atorvastatin 20 mg tablet 20 mg PO DAILY 09/15/21 07/07/23 carbidopa 25 mg-levodopa 100 mg 1 tablet PO TID 10/05/22 07/07/23 tablet ferrous sulfate 325 mg (65 mg 325 mg PO DAILY 03/07/23 07/07/23 iron) tablet (FeroSul) famotidine 20 mg tablet 20 mg PO BID PRN 06/20/23 07/07/23 Allergies Allergy/AdvReac Type Severity Reaction Status Date / Time No Known Allergies Allergy Verified 07/07/23 13:44 Review of Systems Constitutional: Constitutional: Reports no additional constitutional complaints Cardiovascular: Cardiovascular: Reports no additional cardiovascular complaints Respiratory: Respiratory: Reports no additional respiratory complaints Musculoskeletal: Musculoskeletal: Denies back pain, Reports arthralgias and Denies joint swelling Neurologic: Reports system reviewed and no additional complaints, except as documented [facility] Past Medical History Medical History Anxiety Benign prostatic hyperplasia without lower urinary tract symptoms Environmental allergies GERD (gastroesophageal reflux disease) Hordeolum externum left lower eyelid Hyperlipidemia Insect bite of lower leg Murmur Other and unspecified hyperlipidemia Parkinson disease Surgical History Surgical History History of surgery on upper extremity right arm S/P TAVR (transcatheter aortic valve replacement) Family History Family History Mother Family history of malignant neoplasm Patient's mother is Sibling Patient's sister is in good health Patient's brother is in good health Father Patient's father is Social History Social History Smoking status: Never smoker Second hand tobacco smoke exposure: No Alcohol intake: former Alcohol use details: wine rarely Substance use: never Substance use type: does not use Lack of Transportation: No Lack of Food: Never True Current Housing: I Have Housing Concerned About Future Housing: No Difficulty Paying Gas/Electric Bills: No Difficulty Paying for Meds: No Currently Unemployed: No Education: Associate Degree Difficulty w/ Childcare or Family Care: No Living arrangements: with family Gender identity (if verbalized by the patient): Male Exam Narrative: GENERAL: Well-appearing, well-nourished, and in no acute distress. HEAD: Normocephalic, Abrasion center of forehead EYES: PERRL and EOMI. ENT: Mucous membranes moist. NECK: Supple. CHEST: Clear to auscultation. No respiratory distress. HEART: Regular rate and rhythm. Normal peripheral pulses. EXTREMITIES: Normal range of motion. No edema. SKIN: Warm, dry, no rash. NEURO: Alert and oriented x3. PSYCH: Normal mood and affect. Course Course Emergency Course: Patient informed of imaging results. Appropriate for discharge home. Vital Signs Vital signs: Vital Signs Temperature 98.2 F 10/23/23 07:36 Pulse Rate 84 10/23/23 07:36 Respiratory Rate
== END 2023-10-23 09:32 | disposition home or self-care (01) ==
PROVIDERS: Emergency Provider Emergency Medicine; PCP Family Medicine
DX: M25.551 Pain in right hip (principal); F41.9 Anxiety disorder, unspecified; N40.0 Benign prostatic hyperplasia without lower urinary tract symptoms; K21.9 Gastro-esophageal reflux disease without esophagitis; E78.5 Hyperlipidemia, unspecified; G20.A1 Parkinson's disease without dyskinesia, without mention of fluctuations; Z95.828 Presence of other vascular implants and grafts; Z95.2 Presence of prosthetic heart valve; W01.0XXA Fall on same level from slipping, tripping and stumbling without subsequent striking against object, initial encounter
CPT/HCPCS: 70450; 73502; 99284

== ENCOUNTER 2024-05-27 14:18 | Outpatient (CLI) | payer OTHER, SELFPAY ==
--- NOTE | ~2024-05-27 | XR_ITS ---
Clinical Indication: Cough PA and lateral views of the chest: Comparison: 10/03/2020 Findings: The lungs are clear, without evidence of focal consolidation or pleural effusion. Cardiome diastinal silhouette is stable, status post interval aortic valve replacement. Bones and soft tissues are unremarkable. Impression: Clear lungs. Status post aortic valve replacement. Reviewed, dictated and finalized at location . UCTION LINE TECHNICIAN Impression: Clear lungs. Status post aortic valve replacement.
--- OUTSIDE RECORDS SUMMARY | 2024-05-27 14:33 | XMS_ITS | Clinical Summary ---
Author Organization [facility] Address [address] [place] [address] Care Team Providers Care Packaging Designer Name Role Phone Neil Wu MD Primary Care Provider [phone] Allergies Active Allergy Reactions Criticality Noted Date Comments Nsaids (Non-Steroidal Anti-Inflammatory Drug) Other (See comments) Low 12/01/2022 Patient instructed not to take by his computer security coordinator Medications aspirin 81 mg enteric coated tablet Take 1 tablet (81 mg total) by mouth daily 30 tablet 11 1 Active cetirizine HCl (ZYRTEC ORAL) Take 1 tablet by mouth nightly as needed Active amoxicillin 500 mg tablet/capsule TAKE FOUR CAPSULES BY MOUTH ONE HOUR BEFORE APPOINTMENT 4 tablet/capsu le 3 Active carbidopa-levod opa (SINEMET) 25-100 mg per tablet TAKE ONE TABLET BY MOUTH ONCE DAILY AT BEDTIME FOR 3 DAYS, THEN ONE TABLET TWICE DAILY FOR 3 DAYS, THEN ONE TABLET 3 TIMES DAILY THEREAFTER 3 Active FeroSuL 325 mg (65 mg iron) tablet Take 1 tablet (325 mg total) by mouth daily 3 Active famotidine (PEPCID) 20 mg tablet Take 1 tablet by mouth twice daily 180 tablet 4 Active clopidogreL (PLAVIX) 75 mg tablet Take 1 tablet by mouth once daily 90 tablet 4 Active atorvastatin (LIPITOR) 20 mg tabletIndicatio ns: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 Take 1 tablet by mouth once daily 90 tablet 4 Active Active Problems Problem Noted Date Diagnosed Date 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 11/30/2022 Hyperlipidemia LDL goal <70 11/23/2021 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 04/30/2021 Gastroesophageal reflux disease 04/30/2021 Status post transcatheter ao rtic valve replacement (TAVR) using bioprosthesis 01/11/2021 Nonrheumatic aortic valve stenosis 09/28/2020 Nonrheumatic mitral valve regurgitation 09/29/19 21 Pre-syncope 09/28/2020 SOB (shortness of breath) 09/28/2020 Immunizations Name Administration Dates Next Due Influenza, Quad, Adjuvantate d, Intramuscular 01/02/2020 Influenza, Quadrivalent, Hig h Dose, Preservative Free, Intrr 12/23/2021,01/28/2021 Influenza, Trivalent, Adjuva nted, Intramuscular 12/25/2017 Influenza, Trivalent, High D ose, Split, Preservative Free, Intramuscular 01/24/2017,01/19/2016,01/27/2015,01/22 Pneumococcal Conjugate PCV 13 02/16/2015 Pneumococcal Polysaccharide PPV23 01/19/2016, Surgical History Surgery Date Site/Laterality Comments TRANSURETHRAL RESECTION OF PROSTATE CLOSED REDUCTION WRIST FRACTURE Right ANOMALOUS PULMONARY VENOUS RETURN REPAIR, TOTAL COLONOSCOPY Medical History Medical History Date Comments Heart murmur Aortic stenosis SOB (shortness of breath) GERD (gastroesophageal reflux disease) occasional Motion sickness Anxiety Parkinson disease (HCC) Pneumonia Family History Medical History Relation Name Comments No Known Problems Brother infection after surgery Father Stomach cancer Mother Relation Name Status Comments Brother Alive Father (Age 86) Mother (Age 79) Sister 1 Alive Sister 2 Alive Social History Tobacco Use Types Packs/Day Years Used Date Smoking Tobacco: Never Passive Smoke Exposure: Past Smokeless Tobacco: Never Tobacco Cessation:Counseling Given: Not Answered AUDIT-C Answer Date Recorded Frequency of Alcohol Consumption Not on file 12/01/2022 Q2: How many drinks containi ng alcohol do you have on a typical day when you are drinking? Patient does not drink 3 Frequency of Binge Drinking Not on file 11/15 Personal Safety Answer Date Recorded Have you ever been in or are you currently in a harmful physical or emotional relationship or is someone making you feel afraid or unsafe? 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 Gender Identity Male 01/02/2021 9:41 AM CDT Sexual Orientation Straight 01/02/2021 9: 41 AM CDT Obstetrics History Last Filed Vital Signs Vital Sign Reading Time Taken Comments Blood Pressure 108/54 09/27/2023 3:33 PM CDT Pulse 68 09/27/2023 3:33 PM CDT Temperature 36.2 C (97.1 F) 01/02/2023 11:08 AM CDT Respiratory Rate 20 01/02/2023 11:08 AM CDT Oxygen Saturation 97% 09/27/2023 3:33 PM CDT Inhaled Oxygen Concentration - - Weight 78.5 kg (173 lb) 09/27/2023 3:33 PM CDT Height 177.8 cm (5' 10 ) 09/27/2023 3:33 PM CDT Body Mass Index 24.82 09/27/2023 3:33 PM CDT Plan of Treatment Health Maintenance Due Date Last Done Comments Depression Screening 1945 Hepatitis C Screening 1945 DTaP/Tdap/Td Vaccine (1 - Tdap) 1956 Hepatitis B Screening 11/26/1963 Zoster Vaccine (1 of 2) 11/26/1995 Well Visit 65+ 2010 Fall Risk Assessment 12/01/2023 11/30/2022, 01/01/20 22 Covid-19 Vaccine (2023-2 5 season) 2023 12/23/2021, 01/13/2021, 06/19/2020, Additional history exists Influenza Vaccine (#1) 2023 , 01/28/2021, 01/02/2020, Additional history exists Pneumococcal vaccine 65+ Completed 016, 02/16/2015, 02/03/2014 Medical Devices Implanted Type Area Director Of Marketing Analytics Device Identifier Shelf Expiration Date Model / Serial / Lot [employer] [id number] Perclose 6fr Suture Mediate Knot Push Vascular Device Closure - [id number] Implanted:Qty: 1 on 12/03/2020 by Harsha Bui MD at [facility] [employer] 08/14/2022 [id number] / / [id number] [employer] [id number] Perclose 6fr Suture Mediate Knot Push Vascular Device Closure - [id number] Implanted:Qty: 1 on 12/03/2020 by Harsha Bui MD at [facility] [employer] 08/14/2022 [id number] / / [id number] [employer] [id number] Perclose 6fr Suture Mediate Knot Push Vascular Device Closure - [id number] Implanted:Qty: 1 on 12/03/2020 by Harsha Bui MD at [facility] [employer] 07/15/2022 [id number] / / [id number] [employer] [id number] Valve Heart 26mm Kenny 3 Transcatheter - [id number] Implanted:Qty: 1 on 12/03/2020 by Harsha Bui MD at [facility] [employer] 08/26/2022 [id number] / / Daig Amelia [id number] Device Closure Angio-Seal Vip Bondek-Plus Polyglyd L70 Cm Od6 Fr Odsec.035 In Vascular - [id number] Implanted:Qty: 1 on 12/03/2020 by Harsha Bui MD at [facility] [employer] 08/14/2021 [id number] / / [id number] [employer] Sealant Fibrin Patch [place] Set Frozen Prefilled Syringe Artiss 4ml [id number] - [id number] - [id number] Implanted:Qty: 1 on 12/08/2022 by Curtis Gregg MD at [facility] Left: Leg [employer] 06/14/2024 [id number] / [id number] / [id number] Insurance [facility] Care Teams Packaging Designer Relationship Specialty Start Date End Date Neil Wu MD PCP - General Family Practice 11/30/22"
--- OUTSIDE RECORDS SUMMARY | 2024-05-27 14:33 | XMS_ITS | Referral Summary ---
Author Organization [facility] Address [address] [place] [address] Care Team Providers Care Buffet Waiter/Waitress Name Role Phone Neil Wu MD Primary Care Provider [phone] Allergies Active Allergy Reactions Criticality Noted Date Comments Nsaids (Non-Steroidal Anti-Inflammatory Drug) Other (See comments) Low 12/01/2022 Patient instructed not to take by his executive pilot Medications aspirin 81 mg enteric coated tablet [...] 20 mg tabletIndicatio ns:Coronary artery disease involving [place] coronary artery of [place] heart without angina pectoris Take 1 tablet by mouth once daily 90 tablet 4 Active Active Problems Problem Noted Date Diagnosed Date 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 11/30/2022 Hyperlipidemia LDL goal <70 11/23/2021 Coronary artery disease invo lving [place] coronary artery of [place] heart without angina pectoris 04/30/2021 Gastroesophageal reflux [...] PCV 13 02/16/2015 Pneumococcal Polysaccharide PPV23 01/19/2016, Social History Tobacco Use Types Packs/Day Years Used Date Smoking Tobacco: Never Passive Smoke Exposure: Past Smokeless Tobacco: Never Tobacco Cessation:Counseling Given: Not Answered AUDIT-C Answer Date Recorded Frequency of Alcohol Consumption Not on file 12/01/2022 Q2: How many drinks containi ng alcohol do you have on a typical day when you are drinking? Patient does not drink Frequency of Binge Drinking Not on file 11/15 Personal Safety Answer Date Recorded Have you ever been in or are you currently in a harmful physical or emotional relationship or is someone making you feel afraid or unsafe? 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 Gender Identity Male 01/02/2021 9:41 AM CDT Sexual Orientation Straight 01/02/2021 9: 41 AM CDT Last Filed Vital Signs Vital Sign Reading [...] 09/27/2023 3:33 PM CDT Plan of Treatment Not on file Medical Devices Implanted Type Area Wireless Team Member Device Identifier Shelf Expiration Date Model / Serial / Lot Harris Vascular 01209-22 Perclose 6fr Suture Mediate Knot Push Vascular Device Closure - [id number] Implanted:Qty: 1 on 12/03/2020 by Harsha Bui MD at [facility] Vascular 08/14/2022 [id number] / / [id number] 729 Harris Vascular 07164-40 Perclose 6fr Suture Mediate Knot Push Vascular Device Closure - [id number] Implanted:Qty: 1 on 12/03/2020 by Harsha Bui MD at [facility] Vascular 08/14/2022 [id number] / / [id number] 726 Harris Vascular 76286-44 Perclose 6fr Suture Mediate Knot Push Vascular Device Closure - [id number] Implanted:Qty: 1 on 12/03/2020 by Harsha Bui MD at [facility] Vascular 07/15/2022 [id number] / / [id number] 363 [employer] [id number] Valve Heart 26mm Kenny 3 Transcatheter - [id number] Implanted:Qty: 1 on 12/03/2020 by Harsha Bui MD at [facility] [employer] 08/26/2022 [id number] / / Daig Amelia [id number] Device Closure Angio-Seal Vip Bondek-Plus Polyglyd L70 Cm Od6 Fr Odsec.035 In Vascular - [id number] Implanted:Qty: 1 on 12/03/2020 by Harsha Bui MD at [facility] [employer] [facility] 08/14/2021 [id number] / / [id number] [employer] Amelia Sealant Fibrin Patch [place] Set Frozen Prefilled Syringe Artiss 4ml [id number] - [id number] - [id number] Implanted:Qty: 1 on 12/08/2022 by Curtis Gregg MD at [facility] Left: Leg [employer] Amelia 06/14/2024 [id number] / [id number] / [id number] Insurance [facility] Care Teams Buffet Waiter/Waitress Relationship Specialty Start Date End Date Neil Wu MD PCP - General Family Practice 11/30/22
--- OUTSIDE RECORDS SUMMARY | 2024-05-27 14:33 | XMS_ITS | Clinical Summary ---
Author Organization [facility] Address [address] [place] [address] Care Team Providers Care Seal Extrusion Operator Name Role Phone Neil Wu MD Primary Care Provider [phone] Allergies Active Allergy Reactions Criticality Noted Date Comments Nsaids Other (see comment) Low 12/01/2022 Patient instructed not to take by his industrial electrician Medications cetirizine (ZYRTEC ALLERGY) 10 MG tablet Take 1 tablet (10 mg total) by mouth as needed. Active atorvastatin (LIPITOR) 20 MG tablet Take 1 tablet (20 mg total) by mouth daily. 07/06/2023 Active carbidopa-levod opa (SINEMET) 25-100 MG tablet Take 2 tablets by mouth 3 (three) times daily. Active clopidogrel (PLAVIX) 75 MG tablet Take 1 tablet (75 mg total) by mouth daily. 07/06/2023 Active FEROSUL 325 (65 Fe) MG tablet Take 1 tablet (325 mg total) by mouth every morning. 06/30/2023 Active fluticasone propionate (FLONASE) 50 MCG/ACT nasal spray 2 sprays by Each Nostril route daily. 07/07/2023 Active famotidine (PEPCID) 20 MG tablet Take 1 tablet (20 mg total) by mouth 2 (two) times daily. 05/08/2023 Active aspirin EC (ECOTRIN) 81 MG tablet Take 1 tablet (81 mg total) by mouth daily. Active Immunizations Name Administration Dates Next Due Arexvy Respiratory Syncytial Virus (RSV, adjuvanted) 0.5 mL, PF 01/14/2023 Influenza (Generic) 12/25/2017 Influenza Adult (Generic) 01/24/2017,07/2015,01/27/2015,2013 Pneumococcal (Pneumovax 23) 01/19/2016, 4 Pneumococcal (Prevnar 13) 02/16/2015 Family History Medical History Relation Comments Cancer Brother Cancer Mother Dementia Sister Relation Status Comments Brother Alive Mother Sister Alive Social History Tobacco Use Types Packs/Day Years Used Date Smoking Tobacco: Never Smokeless Tobacco: Never Tobacco Cessation:Counseling Given: Not Answered Alcohol Use Standard Drinks/Week Comments Not Currently 0 (1 standard drink = 0.6 oz pur e alcohol) PHQ-2 Answer Date Recorded Patient Health Questionnaire-2 Score 1 10/24/2023 Sex and Gender Information Value Date Recorded Sex Assigned at Not on file 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 Gender Identity Not on file Sexual Orientation Not on file Last Filed Vital Signs Vital Sign Reading Time Taken Comments Blood Pressure 112/68 10/24/2023 10:33 AM CDT Pulse 60 10/24/2023 10:33 AM CDT Temperature 36.3 C (97.4 F) 10/24/2023 10:33 AM CDT Respiratory Rate - - Oxygen Saturation 95% 10/24/2023 10:33 AM CDT Inhaled Oxygen Concentration - - Weight 76.4 kg (168 lb 6.4 oz) 10/24/2023 10:33 AM CDT Height 177.8 cm (5' 10 ) 10/24/2023 10:33 AM CDT Body Mass Index 24.16 10/24/2023 10:33 AM CDT Plan of Treatment Upcoming Encounters Date Type Department Care Team (Late st Contact Info) Description 08/06/2024 2:40 PM CDT Office Visit [facility] - [address], [address] [place] [id number] Yovani Duenas MD [address] [place] [address] Health Maintenance Due Date Last Done Comments Hepatitis C 11/26/1963 DTaP, Tdap and Td Vaccines (1 - Tdap) 1964 Zoster Vaccines (1 of 2) 11/26/1995 Annual Medicare Wellness Visit 2010 COVID-19 Vaccine ( season) 2023 01/31/2023, 12/23/2021, 01/13/2021, Additional history exists Influenza Adult (#1) 2024 12/25/2017, 01/24/2017, 01/19/2016, Additional history exists PHQ-2 (Physician [place]) 04/17/2024 10/24/2023 PHQ-2 (Physician [place]) 10/23/2024 10/24/2023 Pneumococcal Vaccine: 65+ Years Completed 01/19/2016, 02/16/2015, 02/03/2014 RSV Immunization or 60+ Years Completed 01/14/2023 Meningococcal B Vaccine Aged Out No l onger eligible based on patient's age to complete this topic Meningococcal Vaccine Aged Out No rose nikole eligible based on patient's age to complete this topic RSV Immunizations Under 20 Months Aged Out No longer eligible based on patient's age to complete this topic Insurance [employer] Care Teams Seal Extrusion Operator Relationship Specialty Start Date End Date Neil Wu MD [address] [place] [address] PCP - General FAMILY PRACTICE 06/09/23
--- OUTSIDE RECORDS SUMMARY | 2024-05-27 14:33 | XMS_ITS ---
Author Organization [facility] Address [address] [place] [address] Care Team Providers Care Gallery Or Museum Technician Name Role Phone Neil Wu MD Primary Care Provider [phone] Active Problems Problem Noted Date Diagnosed Date 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 11/30/2022 Hyperlipidemia LDL goal <70 11/23/2021 Coronary artery disease invo lving [place] coronary artery of [place] heart without angina pectoris 04/30/2021 Gastroesophageal reflux disease 04/30/2021 Status post transcatheter ao rtic valve replacement (TAVR) using bioprosthesis 01/11/2021 Nonrheumatic aortic valve stenosis 09/28/2020 Nonrheumatic mitral valve regurgitation 09/29/19 21 Pre-syncope 09/28/2020 SOB (shortness of breath) 09/28/2020 Current Oncology Plans No current plan information found. Past Plans Oncology Chemotherapy Treatment Plan Name Start Date Discontinue Date Treatment Medications Discontinue Reason Plan Provider Cycles Pembrolizumab 21 Day Cycles 023 03/15/2023 pembrolizumab (KEYTRUDA) Patient Preference Cole Butler MD Treatment not started Radiation Treatments * No radiation treatments are documented for this patient in [facility]. Treatments may have been administered in another system. Lifetime Dose Tracking * Chemical Lifetime Dose Automatic Entry Manual Entr y Air kerma at the reference point (Ka,r) 537 mGy 0 mGy 537 mGy
[2024-05-27 15:40] LABS: Influenza A QL RT-PCR Positive (Negative); Influenza B QL RT-PCR Negative (Negative); RSV RNA, RT-PCR Negative (Negative); SARS-CoV-2 RNA PCR Negative (Negative)
== END 2024-05-27 14:19 | disposition home or self-care (01) ==
PROVIDERS: PCP Family Medicine; Visit Provider Nurse Practitioner Family
DX: R50.9 Fever, unspecified (principal); R05.9 Cough, unspecified; Z20.822 Contact with and (suspected) exposure to COVID-19; Z95.2 Presence of prosthetic heart valve
CPT/HCPCS: 71046; 87637

== ENCOUNTER 2024-06-29 07:28 | Outpatient (CLI) | payer OTHER, SELFPAY ==
--- OUTSIDE RECORDS SUMMARY | 2024-06-29 07:39 | XMS_ITS | Clinical Summary ---
Author Organization [facility] Address [address] [place] [address] Care Team Providers Care Cardiac Nurse Name Role Phone Neil Wu MD Primary Care Provider [phone] Allergies Active Allergy Reactions Criticality Noted Date Comments Nsaids (Non-Steroidal Anti-Inflammatory Drug) Other (See comments) Low 12/01/2022 Patient instructed not to take by his java developer consultant Medications aspirin 81 mg enteric coated tablet Take 1 tablet (81 mg total) by mouth daily 30 tablet 11 10/01/19 21 Active cetirizine HCl (ZYRTEC ORAL) Take 1 tablet by mouth nightly as needed Active amoxicillin 500 mg tablet/capsule TAKE FOUR CAPSULES BY MOUTH ONE HOUR BEFORE APPOINTMENT 4 tablet/caps ule 09/14/19 23 Active carbidopa-levod opa (SINEMET) 25-100 mg per tablet TAKE ONE TABLET BY MOUTH ONCE DAILY AT BEDTIME FOR 3 DAYS, THEN ONE TABLET TWICE DAILY FOR 3 DAYS, THEN ONE TABLET 3 TIMES DAILY THEREAFTER 11/02/19 23 Active FeroSuL 325 mg (65 mg iron) tablet Take 1 tablet (325 mg total) by mouth daily 10/12/19 23 Active famotidine (PEPCID) 20 mg tablet Take 1 tablet by mouth twice daily 180 tablet 05/08/19 24 Active clopidogreL (PLAVIX) 75 mg tablet Take 1 tablet by mouth once daily 90 tablet 06/12/19 25 Active atorvastatin (LIPITOR) 20 mg tabletIndicatio ns:Coronary artery disease involving [place] coronary artery of [place] heart without angina pectoris Take 1 tablet by mouth once daily 90 tablet 06/12/19 25 Active midodrine (PROAMATINE) 2.5 mg tabletIndicatio ns:Symptomatic Orthostatic Hypotension Take 1 tablet (2.5 mg total) by mouth 3 (three) times a day 90 tablet 11 06/29/19 25 026 Active clopidogreL (PLAVIX) 75 mg tablet Take 1 tablet by mouth once daily 90 tablet 03/18/20 24 025 Discontinued atorvastatin (LIPITOR) 20 mg tabletIndicatio ns:Coronary artery disease involving [place] coronary artery of [place] heart without angina pectoris Take 1 tablet by mouth once daily 90 tablet 03/18/20 24 025 Discontinued Active Problems Problem Noted Date Diagnosed Date Orthostasis 06/28/2024 Aortic prosthetic valve regurgitation 06/28/2024 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 11/30/2022 Hyperlipidemia LDL goal <70 11/23/2021 Coronary artery disease invo lving [place] coronary artery of [place] heart without angina pectoris 04/30/2021 Gastroesophageal reflux disease 04/30/2021 Status post transcatheter ao rtic valve replacement (TAVR) using bioprosthesis 01/11/2021 Nonrheumatic aortic valve stenosis 09/28/2020 Nonrheumatic mitral valve regurgitation 09/29/19 21 Pre-syncope 09/28/2020 SOB (shortness of breath) 09/28/2020 Encounters Date Type Department Care Team Description 06/28/2024 10:30 AM CDT Office Visit [facility] Cardiology [address] [place] [address] Alireza Campbell MD Pre-syncope (Primary Dx); Atherosclerosis of [place] coronary artery without angina pectoris, unspecified whether [place] or transplanted heart; Presence of xenogenic heart valve; Orthostasis; Status post transcatheter aortic valve replacement (TAVR) using bioprosthesis; Coronary artery disease involving [place] coronary artery of [place] heart without angina pectoris; Aortic prosthetic valve regurgitation, subsequent encounter from Last 3 Months Immunizations Immunization Administration Dates Next Due Influenza, Quad, Adjuvantate [...] ANOMALOUS PULMONARY VENOUS RETURN REPAIR, TOTAL COLONOSCOPY VASECTOMY 1979? PROSTATE SURGERY 2011? CARDIAC VALVE REPLACEMENT 2019?? 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 Gender Identity Male 01/02/2021 9:41 AM CDT Sexual Orientation Straight 01/02/2021 9: 41 AM CDT Obstetrics History Last Filed Vital Signs Vital Sign Reading Time Taken Comments Blood Pressure 100/60 06/28/2024 10:28 AM CDT Pulse 73 06/28/2024 10:28 AM CDT Temperature 36.2 C (97.1 F) 01/02/2023 11:08 AM CDT Respiratory Rate 20 01/02/2023 11:08 AM CDT Oxygen Saturation 99% 06/28/2024 10:28 AM CDT Inhaled Oxygen Concentration - - Weight 79.4 kg (175 lb) 06/28/2024 10:28 AM CDT Height 177.8 cm (5' 10 ) 06/28/2024 10:28 AM CDT Body Mass Index 25.11 06/28/2024 10:28 AM CDT Plan of Treatment Health Maintenance Due [...] 02/16/2015, 02/03/2014 Medical Devices Implanted Type Area Calender Runner Device Identifier Shelf Expiration Date Model / Serial / Lot Harris Vascular 28648-61 Perclose 6fr Suture Mediate Knot Push Vascular Device Closure - [id number] Implanted:Qty: 1 on 12/03/2020 by Harsha Bui MD at [facility] Vascular 08/14/2022 03067-62 / / [id number] 729 Harris Vascular 58469-02 Perclose 6fr Suture Mediate Knot Push Vascular Device Closure - [id number] Implanted:Qty: 1 on 12/03/2020 by Harsha Bui MD at [facility] Vascular 08/14/2022 [id number] / / [id number] 726 Harris Vascular 22711-95 Perclose 6fr Suture Mediate Knot Push Vascular Device Closure - [id number] Implanted:Qty: 1 on 12/03/2020 by Harsha Bui MD at [facility] Vascular 07/15/2022 [id number] / / [id number] 363 [employer] [id number] Valve Heart 26mm Kenny 3 Transcatheter - [id number] Implanted:Qty: 1 on 12/03/2020 by Harsha Bui MD at [facility] [employer] 08/26/2022 [id number] / / Daig Amelia [id number] Device Closure Angio-Seal Vip Bondek-Plus Polyglyd L70 Cm Od6 Fr Odsec.035 In Vascular - [id number] Implanted:Qty: 1 on 12/03/2020 by Harsha Bui MD at [facility] [employer] Amelia 08/14/2021 [id number] / / [id number] Mobile[employer]actor Sealant Fibrin Patch [place] Set Frozen Prefilled Syringe Artiss 4ml [id number] - [id number] - [id number] Implanted:Qty: 1 on 12/08/2022 by Curtis Gregg MD at [facility] Left: Leg [employer] Amelia 06/14/2024 [id number] / [id number] / [id number] Insurance [facility] Member Subscriber Plan / Payer ( fective 2020-Present) Name:Nelson Madden Relation to Subscriber:Self Name:Nelson Madden Payer ID:[id number] (NAIC) Type:MEDICARE RISK OTHER Address: [address] [facility] [place] [facility] Care Teams Cardiac Nurse Relationship Specialty Start Date End Date Neil Wu MD PCP - General Family Practice 11/30/22
--- OUTSIDE RECORDS SUMMARY | 2024-06-29 07:39 | XMS_ITS ---
Author Organization [facility] Address [address] [place] [address] Care Team Providers Care Bottle Tester Name Role Phone Neil Wu MD Primary Care Provider [phone] Active Problems Problem Noted Date Diagnosed Date Orthostasis 06/28/2024 Aortic prosthetic valve regurgitation 06/28/2024 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 11/30/2022 Hyperlipidemia LDL goal <70 11/23/2021 Coronary artery disease invo lving [place] coronary artery of [place] heart without angina pectoris 04/30/2021 Gastroesophageal reflux disease 04/30/2021 Status post transcatheter ao rtic valve replacement (TAVR) using bioprosthesis 01/11/2021 Nonrheumatic aortic valve stenosis 09/28/2020 Nonrheumatic mitral valve regurgitation 09/29/19 21 Pre-syncope 09/28/2020 SOB (shortness of breath) 09/28/2020 Current Treatment and Therapy Plans No current plan information found. Past Treatment and Therapy Plans Oncology Chemotherapy Treatment Plan Name Start Date Discontinue Date Treatment Medications Discontinue Reason Plan Provider Cycles Pembrolizumab 21 Day Cycles 023 03/15/2023 pembrolizumab (KEYTRUDA) Patient Preference Cole Butler MD Treatment not started Lifetime Dose Tracking * Chemical Lifetime Dose Automatic Entry Manual Entr y Air kerma at the reference point (Ka,r) 537 mGy 0 mGy 537 mGy
--- OUTSIDE RECORDS SUMMARY | 2024-06-29 07:39 | XMS_ITS | Referral Summary ---
Author Organization [facility] Address [address] [place] [address] Care Team Providers Care Mandrel Cleaner Name Role Phone Neil Wu MD Primary Care Provider [phone] Encounters Date Type Department Care Team Description 06/28/2024 10:30 AM CDT Office Visit [facility] Cardiology [address] [place] [address] Alireza Campbell MD Pre-syncope (Primary Dx); Atherosclerosis of [place] coronary artery without angina pectoris, unspecified whether [place] or transplanted heart; Presence of xenogenic heart valve; Orthostasis; Status post transcatheter aortic valve replacement (TAVR) using bioprosthesis; Coronary artery disease involving [place] coronary artery of [place] heart without angina pectoris; Aortic prosthetic valve regurgitation, subsequent encounter from Last 3 Months Allergies Active Allergy Reactions Criticality Noted Date Comments Nsaids (Non-Steroidal Anti-Inflammatory Drug) Other (See comments) Low 12/01/2022 Patient instructed not to take by his filler shredder helper Medications aspirin 81 mg enteric coated tablet [...] 20 mg tabletIndicatio ns:Coronary artery disease involving [place] coronary artery of [place] heart without angina pectoris Take 1 tablet [...] 20 mg tabletIndicatio ns:Coronary artery disease involving [place] coronary artery of [place] heart without angina pectoris Take 1 tablet by mouth once daily 90 tablet 03/18/20 24 025 Discontinued Active Problems Problem Noted Date Diagnosed Date Orthostasis 06/28/2024 Aortic prosthetic valve regurgitation 06/28/2024 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 11/30/2022 Hyperlipidemia LDL goal <70 11/23/2021 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 angina pectoris 04/30/2021 Gastroesophageal reflux disease 04/30/2021 Status post transcatheter ao rtic valve replacement (TAVR) using bioprosthesis 01/11/2021 Nonrheumatic aortic valve stenosis 09/28/2020 Nonrheumatic mitral valve regurgitation 09/29/19 21 Pre-syncope 09/28/2020 SOB (shortness of breath) 09/28/2020 Immunizations Immunization Administration Dates Next Due Influenza, [...] on file Legal 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 [employer] 08/14/2022 [id number] / / [id number] 729 Harris Vascular 83926-26 Perclose 6fr Suture Mediate Knot Push Vascular Device Closure - [id number] Implanted:Qty: 1 on 12/03/2020 by Harsha Bui MD at [facility] [employer] 08/14/2022 [id number] / / [id number] 726 Harris Vascular 54133-27 Perclose 6fr Suture Mediate Knot Push Vascular Device Closure - [id number] Implanted:Qty: 1 on 12/03/2020 by Harsha Bui MD at [facility] Vascular 07/15/2022 [id number] / / [id number] 363 [employer] [id number] Valve Heart 26mm Kenny 3 Transcatheter - [id number] Implanted:Qty: 1 on 12/03/2020 by Harsha Bui MD at [facility] [employer] 08/26/2022 [id number] / / Daig Amelia [id number] Device Closure Angio-Seal Vip Bondek-Plus Polyglyd L70 Cm Od6 Fr Odsec.035 In Vascular - [id number] Implanted:Qty: 1 on 12/03/2020 by Harsha Bui MD at [facility] [employer] Amelia 08/14/2021 [id number] / / [id number] [employer] Amelia Sealant Fibrin Patch [place] Set Frozen Prefilled Syringe Artiss 4ml [id number] - [id number] - [id number] Implanted:Qty: 1 on 12/08/2022 by Curtis Gregg MD at [facility] Left: Leg [employer] Amelia 06/14/2024 [id number] / [id number] / [id number] Insurance [facility] Care Teams Mandrel Cleaner Relationship Specialty Start Date End Date Neil Wu MD PCP - General Family Practice 11/30/22
--- OUTSIDE RECORDS SUMMARY | 2024-06-29 07:39 | XMS_ITS | Clinical Summary ---
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 Gender Identity Not on file Sexual Orientation [...] Description 08/06/2024 2:40 PM CDT Office Visit [facility] - [address], [address] [place] [id number] Yovani Duenas MD [address] [place] [id number] Health Maintenance Due Date Last Done Comments Hepatitis C 11/26/1963 DTaP, Tdap and Td Vaccines (1 - Tdap) 1964 Zoster Vaccines (1 of 2) 11/26/1995 Annual Medicare Wellness Visit 2010 COVID-19 Vaccine ( season) 2023 01/31/2023, 12/23/2021, 01/13/2021, Additional history exists Influenza Adult (#1) 2024 12/25/2017, 01/24/2017, 01/19/2016, Additional history exists PHQ-2 (Physician [place]) 04/17/2024 10/24/2023 PHQ-2 (Physician [place]) 10/23/2024 10/24/2023 Pneumococcal Vaccine: 65+ Years Completed [...] complete this topic Insurance [employer] Care Teams Casting Machine Adjuster Relationship Specialty Start Date End Date Neil Wu MD [address] [place] [address] PCP - General FAMILY PRACTICE 06/09/23
--- OUTSIDE RECORDS SUMMARY | 2024-06-29 07:39 | XMS_ITS | Encounter Summary ---
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, subsequent encounter Procedures Transthoracic Echo (TTE) Complete W Doppler/CF Alireza Campbell MD [address] [place] [id number] Phone: tel: fax: [facility] Card[facility] [address] [place] [phone] Phone: tel: fax: Referral ID Status Reason Start Date Expiration Date V isits Requested Visits Authorized [id number] Pending Review 06/28/2024 07/28/2025 1 1 Reason for Visit * Reason Comments Aortic Stenosis Coronary Artery Disease Valve Disorder 6 mo f/u * Consultation (Routine) - Authorized Specialty Diagnoses / Procedures [facility] Referred To Contact Cardiology Diagnoses Atherosclerosis of [place] coronary artery without angina pectoris, unspecified whether [place] or transplanted heart Presence of xenogenic heart valve Neil Wu MD [address] [address] Phone: tel: fax: Alireza Campbell MD [address] [address] Phone: tel: fax: Referral ID Status Reason Start Date Expiration Date Visits Requested Visits Authorized [id number] Authorized Specialty Services Required 06/25/2024 06/26/2025 24 Encounter Details Date Type Department Care Team (Latest Contact Info) Description 06/28/2024 10:30 AM CDT Office Visit [facility] Cardiology [address] [place] [address] Alireza Campbell MD [address] [address] Pre-syncope (Primary Dx); Atherosclerosis of [place] coronary artery without angina pectoris, unspecified whether [place] or transplanted heart; Presence of xenogenic heart valve; Orthostasis; Status post transcatheter aortic valve replacement (TAVR) using bioprosthesis; Coronary artery disease involving or[place]ar[place] coronary artery of [place] heart without angina pectoris; Aortic prosthetic valve regurgitation, subsequent encounter Social History Tobacco Use Types Packs/Day Years [...] on file 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 Gender Identity Male 01/02/2021 9:41 AM CDT Sexual Orientation Straight 01/02/2021 9: 41 AM CDT documented as of this encounter Last Filed Vital Signs Vital Sign Reading Time Taken Comments Blood Pressure 100/60 06/28/2024 10:28 AM CDT Pulse 73 06/28/2024 10:28 AM CDT Temperature - - Respiratory Rate - - Oxygen Saturation 99% 06/28/2024 10:28 AM CDT Inhaled Oxygen Concentration - - Weight 79.4 kg (175 lb) 06/28/2024 10:28 AM CDT Height 177.8 cm (5' 10 ) 06/28/2024 10:28 AM CDT Body Mass Index 25.11 06/28/2024 10:28 AM CDT documented in this encounter Ordered Prescriptions Prescription Sig Dispense Quantity Refills Last Filled Start Date End Date midodrine (PROAMATINE) 2.5 mg tabletIndications: Symptomatic Orthostatic Hypotension Take 1 tablet (2.5 mg total) by mouth 3 (three) times a day 90 tablet 11 06/28/2024 06/28/2025 documented in this encounter Progress Notes * Alireza Campbell MD - 06/28/2024 10:30 AM CDT Images from the original note were not included. [facility] DATE OF VISIT: 06/28/2024 CHIEF COMPLAINT Chief Complaint Patient presents with Aortic Stenosis Coronary Artery Disease Valve Disorder 6 mo f/u HPI Nelson Madden is a 78 y.o. male with aortic stenosis. He is referred by Dr. Dill for further evaluation and treatment. Patient had an echocardiogram performed recently showing critical aortic stenosis with a valve area of 0.5 centimeter squared. Patient states that he has never been told he has a murmur. He has been short of breath with doing almost any activity for the past 6-12 months. Hissymptoms have progressively been worsening over this time frame. An echocardiogram was performed with the above finding but with preserved ejection fraction. He also has presyncope especially with doing activity such as climbing up steps or evening getting up from a sitting to standing position. Hedenies any chest pain, syncope, paroxysmal nocturnal dyspnea, orthopnea, edema or palpitations. Follow-up note 04/30/2021: He feels significantly better following TAVR. He still feels well post TAVR. He denies any chest pain, shortness breath, syncope, presyncope, paroxysmal nocturnal dyspnea, orthopnea, edema or palpitations. Does have intermittent GERD symptoms. Still has a tremor also. Follow-up note 11/23/2021: From a cardiac perspective he still doing pretty well and denies any chest pain, shortness breath, syncope, presyncope, paroxysmal nocturnal dyspnea orthopnea, edema palpitations. He has developed some tremors and is supposed to see Neurology but has not done so yet. Follow-up note 05/30/2022: Patient has worsening fatigue, and worsening tremor. He denies any chestpain, shortness breath, syncope, presyncope, paroxysmal nocturnal dyspnea, orthopnea, edema or palpitations. Follow-up note 09/27/2023 His Parkinson's is still his most significant issue. . He also gets a little dizzy if he stands up too fast or goes up the steps too fast. He denies any chest pain, syncope,paroxysmal nocturnal dyspnea orthopnea, significant edema or palpitations Follow-up note 06/28/2024: He still having orthostasis symptoms upon standing. He did have COVID and influenza a about a month ago and still having some residual shortness breath with walking as wellas some chest and head congestion. He is still fatigued and tired but has no chest pain, syncope, paroxysmal nocturnal dyspnea, orthopnea, edema or palpitations. MEDICAL HISTORY Past Medical History: Diagnosis Date Anxiety Aortic stenosis Cancer (HCC) 2022 GERD (gastroesophageal reflux disease) occasional Heart murmur Motion sickness Parkinson disease (HCC) Pneumonia SOB (shortness of breath) Social History Tobacco Use Smoking status: Never Smoker Smokeless tobacco: Never Used Vaping Use Vaping Use: Never used Substance Use Topics Alcohol use: Not on file Drug use: Yes Types: Alcohol Comment: occassional glass wine Family History Problem Relation Age of Onset Stomach cancer Mother Cancer Mother Other (infection after surgery) Father No Known Problems Brother MEDICATIONS Medication List Accurate as of June 28, 2024 10:47 AM. If you have any questions, ask your nurse or doctor. CONTINUE taking these medications amoxicillin 500 mg tablet/capsule Commonly known as: AMOXIL TAKE FOUR CAPSULES BY MOUTH ONE HOUR BEFORE APPOINTMENT aspirin 81 mg enteric coated tablet Take 1 tablet (81 mg total) by mouth daily atorvastatin 20 mg tablet Commonly known as: LIPITOR Take 1 tablet by mouth once daily carbidopa-levodopa 25-100 mg per tablet Commonly known as: SINEMET clopidogreL 75 mg tablet Commonly known as: PLAVIX Take 1 tablet by mouth once daily famotidine 20 mg tablet Commonly known as: PEPCID Take 1 tablet by mouth twice daily FeroSuL 325 mg (65 mg iron) tablet Generic drug: ferrous sulfate ZYRTEC ORAL Current Outpatient Medications Medication Instructions amoxicillin 500 mg tablet/capsule TAKE FOUR CAPSULES BY MOUTH ONE HOUR BEFORE APPOINTMENT aspirin 81 mg, oral, Daily atorvastatin (LIPITOR) 20 mg, oral, Daily carbidopa-levodopa (SINEMET) 25-100 mg per tablet TAKE ONE TABLET BY MOUTH ONCE DAILY AT BEDTIME FOR 3 DAYS, THEN ONE TABLET TWICE DAILY FOR 3 DAYS, THEN ONE TABLET 3 TIMES DAILY THEREAFTER cetirizine HCl (ZYRTEC ORAL) 1 tablet, Nightly PRN clopidogreL (PLAVIX) 75 mg, oral, Daily famotidine (PEPCID) 20 mg, oral, 2 times daily FeroSuL 325 mg (65 mg iron) tablet 1 tablet, Daily ALLERGIES Allergies Allergen Reactions Nsaids (Non-Steroidal Anti-Inflammatory Drug) Other (See comments) 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 HENT: Negative for hearing loss. Eyes: Negative for blurred vision and visual disturbance. Cardiovascular: Positive for near-syncope. Negative for chest pain, claudication, dyspnea on exertion, irregular heartbeat, leg swelling, orthopnea, palpitations, paroxysmal nocturnal dyspnea and syncope. Respiratory: Positive for shortness of breath. Negative for cough, hemoptysis, snoring, sputum production and wheezing. Endocrine: Negative for cold intolerance, heat intolerance and polyuria. Hematologic/Lymphatic: Does not bruise/bleed easily. Skin: Negative for color change and rash. Musculoskeletal: Negative for falls, joint pain, joint swelling and myalgias. Gastrointestinal: Negative for abdominal pain, heartburn, nausea and vomiting. Genitourinary: Negative for dysuria. Neurological: Negative for dizziness, focal weakness, headaches, light- headedness, numbness and weakness. Psychiatric/Behavioral: Negative for depression. The patient is not nervous/anxious. Allergic/Immunologic: Negative for environmental allergies. PHYSICAL EXAM Blood pressure 100/60, pulse 73, height 177.8 cm (5' 10 ), weight 79.4 kg (175 lb), SpO2 99%. Body mass index is 25.11 kg/m??. Physical Exam Vitals reviewed. Constitutional: Appearance: Normal appearance. HENT: Head: Normocephalic and atraumatic. Nose: Nose normal. Eyes: General: No scleral icterus. Conjunctiva/sclera: Conjunctivae normal. Cardiovascular: Rate and Rhythm: Normal rate and regular rhythm. Pulses: Intact distal pulses. Heart sounds: Murmur heard. No friction rub. No gallop. Comments: 1/6 systolic ejection murmur Pulmonary: Effort: Pulmonary effort is normal. No respiratory distress. Breath sounds: Normal breath sounds. No wheezing or rales. Chest: Chest wall: No tenderness. Abdominal: General: Bowel sounds are normal. There is no distension. Palpations: Abdomen is soft. Tenderness: There is no abdominal tenderness. Musculoskeletal: General: Normal range of motion. Cervical back: Neck supple. Skin: General: Skin is warm and dry. Neurological: Mental Status: He is alert and oriented to person, place, and time. Psychiatric: Mood and Affect: Mood normal. LABS AND OTHER DIAGNOSTIC TESTS Lab Results Component Value Date WBC 7.7 01/02/2023 HGB 13.8 01/02/2023 HCT 41.4 01/02/2023 MCV 92.8 01/02/2023 Chemistry Component Value Date/Time SODIUM 133 (L) 01/02/2023 1050 POTASSIUM 3.9 01/02/2023 1050 CHLORIDE 98 01/02/2023 1050 CO2 26 01/02/2023 1050 BUNSER 21 01/02/2023 1050 CREATININE 1.04 01/02/2023 1050 GLUCOSE 72 01/02/2023 1050 Component Value Date/Time CALCIUM 9.1 01/02/2023 1050 ALKPHOS 112 01/02/2023 1050 AST 22 01/02/2023 1050 ALT 9 01/02/2023 1050 BILITOT 0.5 01/02/2023 1050 No results found for: CHOL No results found for: HDL No results found for: LDL ] No results found for: LDLCALC No results found for: TRIG No results found for: CHOLHDL EKG 09/28/2020: Normal sinus rhythm, left anterior fascicular block. Abnormal EKG. Echo EF 60-65% with mild LVH, grade 1 diastolic dysfunction, critical aortic stenosis with mean gradient of 64 mm Hg and valve area 0.5 centimeters squared. [id number] MR, mild AI 12/03/2020uccessful TAVR using 26 mm Darling Kenny 3 Ultra pericardial tissue valve (transfemoralaccess). Echo 12/04/2020 Normal left ventricular size. Normal left ventricular wall thickness. Diastolic dysfunction is present. Ejection fraction is measured at 66 %. Normal right ventricular size. Normal right ventricular systolic function. Aortic valve not well visualized. No evidence of hemodynamically significant aortic stenosis by Doppler. No aortic regurgitation. Peak gradient of 16.0 mmHg. Mean gradient of 10.0 mmHg. Normal pericardium with no significant pericardial effusion. TTE 05/30/2022 Normal left ventricular systolic function. No focal wall motion abnormalities. Normal left ventricular size. Mild concentric left ventricular hypertrophy. Paradoxical septal motion consistent with IVCD or bundle branch block. Impaired diastolic relaxation Grade I. Ejection fraction is measured at 61 %. Normal appearance of the mitral valve. Mild mitral annular calcification. Mild mitral valve regurgitation. Aortic valve not well visualized. Peak gradient of 22.0 mmHg. Mean gradient of 12.0 mmHg. Valve area of 1.69 cm2. Moderate to severe somewhat eccentric aortic valve regurgitation unable to differentiate between valvular vs perivalvular. Consider ROSINA. Gradients normal for valve type and size. Aortic valve bioprosthesis not well visualized but appears well seated. Normal appearance of the tricuspid valve. Moderate pulmonary hypertension based on right ventricular systolic pressure. Estimated peak RVSP is 46 mmHg. Mild tricuspid regurgitation. Normal sinus rhythm. ROSINA 12/31/2021 Normal LV size, mild LVH, normal LV systolic function, ejection fraction about 60%. Trivial MR. S/p TAVR- normal appearing aortic valve bioprosthesis. Gradients within normal limits. Trace to mild paravalvular leak. ECHO 05/24/2023 Normal left ventricular systolic function. No focal wall motion abnormalities. Normal left ventricular size. Moderate concentric left ventricular hypertrophy. Impaired diastolic relaxation Grade I. Ejection fraction is visually estimated at 60-65 %. Ejection fraction is measured at 56 %. Global Longitudinal Strain is -19 %. GLS is normal. There is mild enlargement of left atrium. Mitral valve leaflets appear mildly thickened. Mild mitral valve regurgitation. There is no hemodynamically significant mitral stenosis by Doppler. Mild aortic valve regurgitation. Gradients normal for valve type and size. Normal appearing aortic valve bioprosthesis. 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 t.I.d. because of his orthostasis symptoms 2D echocardiogram Doppler to evaluate his TAVR and perivalvular AI He will need dental prophylaxis antibiotics. Continue aspirin and Plavix for now because of his TAVR. Continue atorvastatin for hyperlipidemia and CAD Follow-up in 6 or sooner as clinically indicated. 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, subsequent encounter Expected: 06/28/2024, Expires: 06/28/2025 documented as of this encounter Visit Diagnoses Diagnosis Pre-syncope- Primary Syncope and collapse Atherosclerosis of [place] coronary artery without angina pectoris, unspecified whether [place] or transplanted heart 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
[2024-06-29 08:06] LABS: Hematocrit 40.6 % (42.0-52.0); Hemoglobin 13.4 g/dL (14.0-18.0); Mean Corpuscular Hemoglobin 31.8 pg (26-34); Mean Corpuscular Volume 96.4 fl (80-100); Mean Platelet Volume 10.4 fl (7.4-10.4); Platelet Count Result 161 k/mm3 (150-375); Red Blood Count 4.21 M/mm3 (4.6-6.20); Red Cell Distribution Width 13.7 % (11.5-14.5); White Blood Count 6.3 K/mm3 (4.5-10.0)
[2024-06-29 08:23] LABS: Alanine Aminotransferase 8 U/L (6-50); Albumin Level 4.2 g/dL (3.5-5.1); Alkaline Phosphatase 105 U/L (38-126); Anion Gap 9 mmol/L (4-12); Aspartate Amino Transferase 34 U/L (17-59); Bilirubin,Total 0.7 mg/dL (0.2-1.3); Blood Urea Nitrogen 27 mg/dL (9-20); Carbon Dioxide 25 mmol/L (22-30); Chloride 106 mmol/L (98-107); Cholesterol 107 mg/dL (0-200); Estimated Glomerular Filt Rate > 60; Glucose 94 mg/dL (65-110); HDL Direct 47 mg/dL; Potassium 4.3 mmol/L (3.4-5.0); Sodium 140 mmol/L (137-145); Triglycerides 77 mg/dL (<150)
[2024-06-29 08:34] LABS: LDL Cholesterol Direct 35 mg/dL
[2024-06-29 08:51] LABS: Prostate Specific Antigen 0.3 ng/mL (< OR = 4.0)
== END 2024-06-29 07:29 | disposition home or self-care (01) ==
LOC: ANHLAB 07:37
PROVIDERS: PCP Family Medicine; Visit Provider Family Medicine
DX: M54.50 Low back pain, unspecified (principal); G20.A1 Parkinson's disease without dyskinesia, without mention of fluctuations; Z95.2 Presence of prosthetic heart valve; G25.0 Essential tremor; I35.0 Nonrheumatic aortic (valve) stenosis; R23.2 Flushing; F41.9 Anxiety disorder, unspecified; N52.9 Male erectile dysfunction, unspecified; Z12.5 Encounter for screening for malignant neoplasm of prostate
CPT/HCPCS: 36415; 80053; 80061; 84153; 85027; G0103

== ENCOUNTER 2025-02-04 08:51 | Outpatient (CLI) | payer OTHER, SELFPAY ==
--- OUTSIDE RECORDS SUMMARY | 2024-10-14 08:10 | XMS_ITS | Encounter Summary ---
Author Organization [facility] Healthcare Address [address] [place] [address] Care Team Providers Care Fruit Harvest Machine Operator Name Role Phone Lacey Rivera MD Unavailable [phone] Neil Wu MD Primary Care Provider [phone] Reason for Referral * Diagnostic Imaging (Routine) - Authorized Specialty Diagnoses / Procedures Referred By Zeyad t Referred To Contact Diagnoses Malignant melanoma of left lower leg (HCC) Procedures NM Lymphoscintigraphy (Skin Cancer) Nadia Bravo MD [address] [id number] [place] [address] Phone: tel: fax: [address] [address] Referral ID Status Reason Start Date Expiration Date V isits Requested Visits Authorized [id number] Authorized 08/20/2024 09/19/2025 2 2 Reason for Visit * Auth/Cert (Routine) Specialty Diagnoses / Procedures Referred By Contac t Referred To Contact Diagnoses Malignant melanoma of lower extremity, unspecified laterality (HCC) Malignant melanoma of lower extremity, unspecified laterality (HCC) [C43.70] Procedures GA EXCISION MAL LESION TRUNK/ARM/LEG 2.1-3.0 CM GA INTRAOP SENTINEL LYMPH NODE ID W/DYE INJECTION BIOPSY SENTINEL LYMPH NODE WITH LYMPHOSCINTIGRAPHY EXCISION CYST/LESION/MASS - LOWER EXTREMITY Referral ID Status Reason Start Date Expiration Date Visits Re quested Visits Authorized [id number] 1 1 Encounter Details Date Type Department Care Team (Latest Contact Info) Description 10/14/2024 8:10 AM CDT Hospital Encounter [facility] ([facility]) [address] [place] [address] Malignant melanoma of left lower leg (HCC) [...] on file Legal Sex Male 6:15 AM [employer]ICAL S[employer] Gender Identity Male 01/02/2021 9:41 AM CDT Sexual Orientation Straight 01/02/2021 9: 41 AM CDT documented as of this encounter Functional Status * AUDIT-C Score Answer Date of Assessment Author 0 11/15/2024 8:28 AM CDT Vivek Phelps RN * Question Answer Date of Assessment Author Q1: How often do you have a drink containing alcohol? Never 11/15/2024 8:28 AM CDT Macrina Phelps RN Q2: How many drinks containing alcohol do you have on a typical day when you are drinking? Patient does not drink 11/15/2024 8:28 AM CDT Macrina Phelps RN Q3: How often do you have six or more drinks on one occasion? Never 11/15/2024 8:28 AM SONJAT Macrina Phelps RN documented as of this encounter Plan of Treatment Not on [...] AM CDT Impressions 10/14/2024 10:22 AM CDT [place] node identified as described above for subsequent intraoperative removal with gamma probe guidance. Dictated by: Kendall Cai MD The radiology attending physician has personally reviewed this study, and had reviewed and/or edited this written report and agrees with it. Electronically signed by: DO Keyla Vasquez 10/14/2024 10:22 AM CDT EXAMINATION: LYMPHOSCINTIGRAPHY DATE [...] located in left inguinal region. Procedure Note Albert Garcia DO - 10/14/2024 EXAMINATION: LYMPHOSCINTIGRAPHY DATE [...] node located in left inguinal region. IMPRESSION: [place] node identified as described above for subsequent intraoperative removal with gamma probe guidance. Dictated by: Kednall Cai MD The radiology attending physician has personally reviewed this study, and had reviewed and/or edited this written report and agrees with it. Electronically signed by: Albert Garcia DO Nadia Bravo MD IMG NM PROCEDURES Final Result documented in this encounter Visit Diagnoses Diagnosis Malignant melanoma of left lower leg (HCC) documented in this encounter Administered Medications Inactive Administered Medications - up to 3 most recent administrations Medication Order MAR Action Action Date Dose Rate Site Tc-99m tilmanocept (lymphoseek) 0.5 mci injection 0.5 millicurie 0.5 millicurie (500 microcurie), intradermal, Once in imaging, radiopharmaceutical, Starting on Mon10/14/24 at 0903, For 1 dose Given 10/14/2024 9:10 AM CDT 0.568 millicuries documented in this encounter Orders Medications Ordered That Henry ht Not Have Been Administered Count Last Ordered Date First Ordered Date Tc-99m tilmanocept (lymphose ek) 0.5 mci injection 0.5 millicurie 1 10/14/2024 documented in this encounter Care Teams Fruit Harvest Machine Operator Relationship Specialty Start Date End Date Neil Wu MD [address] [place] [address] PCP - General Family Practice 07/30/24 Lacey Rivera MD [address] [place] [address] Dermatology 07/24/24 documented as of this encounter
[2025-02-04 09:21] LABS: Hematocrit 44.0 % (42.0-52.0); Hemoglobin 14.3 g/dL (14.0-18.0); Mean Corpuscular HGB Conc 32.5 g/dl (32-36); Mean Corpuscular Hemoglobin 31.4 pg (26-34); Mean Corpuscular Volume 96.5 fl (80-100); Platelet Count Result 170 k/mm3 (150-375); Red Blood Count 4.56 M/mm3 (4.6-6.20); White Blood Count 7.0 K/mm3 (4.5-10.0)
[2025-02-04 09:29] LABS: Add Urine Microscopic? YES; Appearance Urine Clear (Clear); Glucose Urine UA Negative (Negative); Leukocyte Esterase Ur Trace LEU/UL (Negative); Nitrate Urine Negative (Negative); Non Pathogenic Casts 0-2; Specific Grav Ur 1.022 (1.001-1.035)
--- OUTSIDE RECORDS SUMMARY | 2025-02-04 09:37 | XMS_ITS ---
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
--- OUTSIDE RECORDS SUMMARY | 2025-02-04 09:37 | XMS_ITS | Clinical Summary ---
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 Medications aspirin 81 mg enteric coated tablet Take 1 tablet (81 mg total) by mouth daily 30 tablet 11 10/01/19 21 Active carbidopa-levodop a (SINEMET) 25-100 mg per tabletIndications :Parkinsonism Take 1 tablet by mouth 3 (three) times a day 2 tab in AM , 2 tab in afternoon, and 1 tablet at night 11/02/19 23 Active FeroSuL 325 mg (65 mg iron) tabletIndications :Iron Deficiency Anemia Take 1 tablet (325 mg total) by mouth every morning 10/12/19 23 Active famotidine (PEPCID) 20 mg tablet Take 1 tablet by mouth twice daily 180 tablet 05/08/19 24 Active Additional Information Patient taking differently:20 mg oral2 times daily PRN, indigestion, heartburn, NONE IN A COUPLE MONTHS , Indications: gastroesophageal reflux disease, Informant: Self, Reported on 01/01/2025 cholecalciferol (Vitamin D3) 2000 unit capsuleIndication s:Vitamin D Deficiency Take 1 capsule (2,000 Units total) by mouth every morning Active acetaminophen (TYLENOL) 500 mg tablet Take 1 tablet (500 mg total) by mouth every 6 (six) hours as needed for pain Active ondansetron ODT (ZOFRAN-ODT) 4 mg disintegrating tablet Take 1 tablet (4 mg total) by mouth every 12 (twelve) hours as needed for nausea or vomiting NONE IN MORE THAN A MONTH 06/05/19 25 Active amoxicillin (AMOXIL) 250 mg capsuleIndication s:Prophylaxis, Medical Take 4 capsules (1,000 mg total) by mouth as needed Takes prior to dental appointment r/t cardiac valve replacement 07/16/19 25 Active fexofenadine (KENYATTA) 180 mg tabletIndications :Allergic Rhinitis Take 1 tablet (180 mg total) by mouth nightly Active ascorbic xant-lrwackjl-wzp 1,000 mg powder effervescent in packet Take 1 tablet by mouth every evening Emergen-C Active MAGNESIUM GLYCINATE ORALIndications:s upplement Take 1 Scoop by mouth every evening Activ e polyethylene glycol (MIRALAX) 17 gram packetIndications :constipation Take 1 packet (17 g total) by mouth every evening Active docusate sodium (COLACE) 100 mg capsuleIndication s:constipation Take 1 capsule (100 mg total) by mouth 2 (two) times a day 30 capsule 10/16/19 25 Active Additional Information Patient taking differently:100 mg oralAs needed, constipation, Indications: constipation, Informant: Self, Reported on 01/01/2025 oxyCODONE (ROXICODONE) 5 mg immediate release tabletIndications :Pain Take 1 tablet (5 mg total) by mouth every 6 (six) hours as needed (breakthrough pain) May space to every 8 hours and wean use as tolerated. Please discard unused medication as instructed 8 tablet 11/16/19 25 Active clopidogreL (PLAVIX) 75 mg tablet Take 1 tablet by mouth once daily 90 tablet 12/04/19 25 Active atorvastatin (LIPITOR) 20 mg tabletIndications :hyperlipidemia Take 1 tablet (20 mg total) by mouth nightly 90 tablet 12/04/19 25 Active midodrine (PROAMATINE) 5 mg tabletIndications :Symptomatic Orthostatic Hypotension Take 1 tablet (5 mg total) by mouth 3 (three) times a day 90 tablet 11 12/05/19 25 2025 Active Active Problems Problem Noted Date Diagnosed Date Open wound of lower leg, initial encounter 10/23 Melanoma of lower limb, unspecified laterality 0 10/14/2024 Malignant melanoma of lower extremity 08/14/2024 Orthostasis 06/28/2024 Aortic prosthetic valve regurgitation 06/28/2024 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 11/30/2022 Hyperlipidemia LDL goal <70 11/23/2021 Coronary artery disease invo lving alutiiq coronary artery of alutiiq heart without angina pectoris 04/30/2021 Gastroesophageal reflux disease 04/30/2021 Status post transcatheter ao rtic valve replacement (TAVR) using bioprosthesis 01/11/2021 Nonrheumatic aortic valve stenosis 09/28/2020 Nonrheumatic mitral valve regurgitation 09/29/19 Pre-syncope 09/28/2020 SOB (shortness of breath) 09/28/2020 Encounters Date Type Department Care Team Description 01/02/2025 10:45 AM CDT Office Visit [facility] Medicine Surgery [address] [facility] 6th [place] [address] [place] [address] Jazmine Pantoja NP Melanoma of lower leg, left (HCC) (Primary Dx) 01/01/2025 3:00 PM CDT Office Visit [facility] Cardiology [address] [facility] [address] [place] [address] Alireza Campbell MD Coronary artery disease involving alutiiq coronary artery of alutiiq heart without angina pectoris (Primary Dx); Aortic prosthetic valve regurgitation, subsequent encounter; Status post transcatheter aortic valve replacement (TAVR) using bioprosthesis; Orthostasis; Nonrheumatic mitral valve regurgitation; Hyperlipidemia LDL goal <70 12/27/2024 Telephone [facility] Medicine Oncology [address] [place] [address] [address] [place] [address] Christy Garcia RN 12/27/2024 Orders Only [facility] Oncology [address] [place] [address] [address] [place] [address] Christy Garcia RN Malignant melanoma of left lower extremity including hip (HCC) (Primary Dx) 12/18/2024 10:30 AM CDT Office Visit [facility] Medicine Surgery [facility] 6th [place] [address] Estrada Miller MD Melanoma of lower leg, left (HCC) (Primary Dx) 12/11/2024 10:45 AM CDT Office Visit [facility] Medicine Oncology [address] [facility] [address] [place] [phone] Farheen Brownlee MD PhD Malignant melanoma of left lower extremity including hip (HCC) 12/11/2024 9:45 AM CDT Lab [facility] [address] [place] [address] Malignant melanoma of left lower extremity including hip (HCC) 12/02/2024 Telephone [facility] Cardiology [address] [facility] [address] [place] [phone] Alireza Campbell MD 12/02/2024 Telephone [facility] Medicine Surgery [address] [place] [address] Advanced Medicine 6th [place] [address] Olive Walton RN 11/28/2024 2:30 PM CDT Office Visit [facility] Medicine Surgery [address] [place] [address] Advanced Medicine 6th [place] [address] Tonya Robison NP Melanoma of lower leg, left (HCC) (Primary Dx) 11/21/2024 1:00 PM CDT Office Visit [facility] Medicine Surgery [address] [place] [address] Advanced Medicine 6th [place] [address] Tonya Robison NP Melanoma of lower leg, left (HCC) (Primary Dx) 11/15/2024 10:30 AM CDT - 11/15/2024 12:00 PM CDT Surgery [facility] [address] [place] [address] Estrada Miller MD SPLIT THICKNESS SKIN GRAFT - LOWER EXTREMITY 11/15/2024 10:04 AM CDT Anesthesia Event [facility]) [address] [place] [address] Eliud Martínez MD McKenzie, Kerry A., NP 11/15/2024 7:54 AM CDT - 11/15/2024 1:09 PM CDT Hospital Encounter [facility] [address] [place] [address] Esrtada Miller MD Open wound of lower leg, initial encounter (Primary Dx) Discharge Disposition: Discharge to home or self care 11/13/2024 10:15 AM CDT [facility] [address] [facility] Advanced Medicine 6th [place] [address] Estrada Miller MD Melanoma of lower leg, left (HCC) (Primary Dx) 11/08/2024 10:30 AM CDT Office Visit [facility] Medicine Surgery [address] [place] [address] 6th [place] [address] Melanoma of lower leg, left (HCC) (Primary Dx) 11/06/2024 10:30 AM CDT [facility] [address] [facility] Advanced Medicine 6th [place] [address] Tonya Robison NP Melanoma of lower leg, left (HCC) (Primary Dx) 11/06/2024 [facility] [address] [place] [address] [facility] 6th [place] [address] Olive Walton RN 11/06/[address] [place] [address] Sherrill Finn RN 11/06/2024 [facility] [address] [place] [address] Advanced Medicine 6th [place] [address] Adia Mcgovern CMA from Last 3 Months Immunizations Immunization Administration Dates Next Due Influenza, Quad, Adjuvantate d, Intramuscular 01/02/2020 Influenza, Quadrivalent, Hig h Dose, Preservative Free, Intrr 12/23/2021,01/28/2021 Influenza, Trivalent, Adjuva nted, Intramuscular 12/25/2017 Influenza, Trivalent, High D ose, Split, Preservative Free, Intramuscular 01/24/2017,01/19/2016,01/27/2015,01/22 Influenza, Unspecified 12/25/2017,2016,01/19/2016,01/27,01/22/2014 Pneumococcal Conjugate PCV 13 02/16/2015 Pneumococcal Polysaccharide PPV23 01/19/2016, RSV Vaccine, Pref, Recombina nt, Subunit, Adjuvanted, PF, IM (Arexvy) 01/14/2023 Surgical History Surgery Date Site/Laterality Comments TRANSURETHRAL RESECTION OF PROSTATE 04/17/2013 - 04/16/2014 CLOSED REDUCTION WRIST FRACTURE 04/17/1962 - 04/16/1963 Right COLONOSCOPY 04/17/2012 - 04/16/2013 VASECTOMY 04/17/1979 - 04/16/1980 CARDIAC VALVE REPLACEMENT 12/03/2020 1. Transcatheter Aortic Valve Replacement using a commercially-available 26 millimeter Darling Kenny 3 bioprosthetic aortic valve 2. Bilateral Percutaneous femoral artery approach MELANOMA RESECTION 12/08/2022 Left 1. Wide local excision melanoma left leg, 4.9 cm 2. Adjacent tissue transfer left leg, flap plus defect, 58.58 cm^2 3. Full thickness skin graft left leg, 1.6 cm^2 4. Intra-operative identification of sentinel lymph node 5. Left inguinal sentinel lymph node biopsy CARDIAC CATHETERIZATION 10/01/2020 LEFT HEART CATHETERIZATION WITH CORONARY ANGIOGRAPHY AND WITH OR WITHOUT LEFT VENTRICULOGRAM 85182 OTHER SURGICAL HISTORY 10/14/2024 BIOPSY SENTINEL LYMPH NODE WITH LYMPHOSCINTIGRAPHY OTHER SURGICAL HISTORY 10/14/2024 EXCISION CYST/LESION/MASS - LOWER EXTREMITY Medical History Medical History Date Comments Heart murmur Aortic stenosis SOB (shortness of breath) GERD (gastroesophageal reflux disease) occasional Motion sickness Anxiety Parkinson disease (HCC) Pneumonia Cancer (HCC) 2022 Melanoma (HCC) Family History Medical History Relation Name Comments Melanoma Brother Syed infection after surgery Father Cancer Mother Stomach cancer Mother Anesthesia problems Neg Hx Relation Name Status Comments Brother Syed Alive Father (Age 86) Mother (Age 79) Sister 1 Alive Sister 2 Alive Social History Tobacco Use Types Packs/Day Years Used Date Smoking Tobacco: Never Passive Smoke Exposure: Never Smokeless Tobacco: Never Tobacco Cessation:Counseling Given: Not Answered AUDIT-C Answer Date Recorded Q1: How often [...] on file Legal Sex Male 6:15 AM [employer] ENTRY[employer] Gender Identity Male 01/02/2021 9:41 AM CDT Sexual Orientation Straight 01/02/2021 9: 41 AM CDT Obstetrics History Last Filed Vital Signs Vital Sign Reading Time Taken Comments Blood Pressure 102/56 01/01/2025 3:06 PM CDT Pulse 68 01/01/2025 3:05 PM CDT Temperature 36.6 C (97.8 F) 12/11/2024 11:18 AM CDT Respiratory Rate 17 12/11/2024 11:18 AM CDT Oxygen Saturation 98% 01/01/2025 3:05 PM CDT Inhaled Oxygen Concentration - - Weight 76.4 kg (168 lb 8 oz) 01/01/2025 3:05 PM CDT Height 177.8 cm (5' 10) 01/01/2025 3:05 PM CDT Body Mass Index 24.18 01/01/2025 3:05 PM CDT Plan of Treatment Health Maintenance Due Date Last Done Comments Depression Screening 1945 Hepatitis C Screening 1945 DTaP/Tdap/Td Vaccine (1 - Tdap) 1956 Hepatitis B Screening 11/26/1963 Zoster Vaccine (1 of 2) 1964 Well Visit 65+ 2010 Covid-19 Vaccine (6 - 2025-2 6 season) 2024 12/23/2021, 01/13/2021, 07/06/2020, Additional history exists Influenza Vaccine (#1) 2024 , 01/28/2021, 01/02/2020, Additional history exists Fall Risk Assessment 11/15/2025 11/15/2024, 12/01/19 23 Pneumococcal vaccine 65+ Completed 020, 01/19/2016, 02/16/2015, Additional history exists Medical Devices Implanted Type Area Well Logger Device Identifier Shelf Expiration Date Model / Serial / Lot Integra Lifesciences Amelia Integra 5x5cm Mesh Dressing Biological Bovine Collagen [id number] - [id number] Implanted:Qty: 1 on 10/14/2024 by Nadia Bravo MD at [facility] Mesh Integra Lifesciences Amelia [id number] 05/17/2026 [id number] / / [id number] Hraris Vascular [id number] Perclose 6fr Suture Mediate Knot Push Vascular Device Closure - [id number] Implanted:Qty: 1 on 12/03/2020 by Harsha Bui MD at [facility] Vascular 08/14/2022 [id number] / / [id number] Harris Vascular 76545-06 Perclose 6fr Suture Mediate Knot Push Vascular Device Closure - [id number] Implanted:Qty: 1 on 12/03/2020 by Harsha Bui MD at [facility] Vascular 08/14/2022 [id number] / / [id number] Harris Vascular [id number] Perclose 6fr Suture Mediate Knot Push Vascular Device Closure - [id number] Implanted:Qty: 1 on 12/03/2020 by Harsha Bui MD at [facility] Vascular 07/15/2022 [id number] / / [id number] Darling Lifesciences [id number] Valve Heart 26mm Kenny 3 Transcatheter - [id number] Implanted:Qty: 1 on 12/03/2020 by Harsha Bui MD at [facility] Darling Lifesciences 08/26/2022 [id number] / / Daig Amelia [id number] Device Closure Angio-Seal Vip Bondek-Plus Polyglyd L70 Cm Od6 Fr Odsec.035 In Vascular - [id number] Implanted:Qty: 1 on 12/03/2020 by Harsha Bui MD at [facility] SpoonfedDidatuan 08/14/2021 [id number] / / [id number] SafeLogic Amelia Sealant Fibrin Patch Ogilvie Set Frozen Prefilled Syringe Artiss 4ml [id number] - [id number] - [id number] Implanted:Qty: 1 on 12/08/2022 by Curtis Gregg MD at [facility] Left: Leg Storey Quantance 06/14/2024 [id number] / [id number] / [id number] Procedures Procedure Name Priority Date/Time Associated Diagnosis Comments EGFR STAT 12/11/2024 10:40 AM CDT Malignant melanoma of left lower extremity including hip (HCC) DIFFERENTIAL AUTO Routine 12/11/2024 10: 40 AM CDT Malignant melanoma of left lower extremity including hip (HCC) CBC WITH AUTO DIFFERENTIAL Routine 12/11/2024 10:40 AM CDT Malignant melanoma of left lower extremity including hip (HCC) COMPREHENSIVE METABOLIC PANEL STAT 12/11/2024 10:40 AM CDT Malignant melanoma of left lower extremity including hip (HCC) TSH STAT 12/11/2024 10:40 AM CDT Malignant melanoma of left lower extremity including hip (HCC) LACTATE DEHYDROGENASE Routine 12/11/2024 10:40 AM CDT Malignant melanoma of left lower extremity including hip (HCC) T4, FREE Routine 12/11/2024 10:40 AM CDT Malignant melanoma of left lower extremity including hip (HCC) GAMMA GT Routine 12/11/2024 10:40 AM CDT Malignant melanoma of left lower extremity including hip (HCC) TEMPUS XG HEREDITARY CANCER NGS PANEL Routine 12/11/2024 10:31 AM CDT Malignant melanoma of left lower extremity including hip (HCC) ANESTHESIA INTUBATION Routine 11/15/2024 10:31 AM CDT SPLIT THICKNESS SKIN GRAFT - LOWER EXTREMITY 11/15/2024 10:07 AM CDT Open wound of lower leg, initial encounter Case Notes 11/06 - Per Peter move to 11/15. NB11/01 - Per Peter, case in depot for edit. NB Special Needs 0.25% Marcaine w/ EPI, Mesher, Dermatome, Mineral Oil, Mepilex AG, Adaptic, KCI Wound Vac POCT AD-X-SVW-GLU-HCT,WB - ISTAT Routine 11/15/2024 8:57 AM CDT from Last 3 Months Results * eGFR (12/11/2024 10:40 AM CDT) eGFR 77 >=60 mL/min/1. 73 m2 Comment: Interpretive Data Reference Interval Normal >/= 90 mL/min/1.73m2 Mildly decreased* 60 - 89 mL/min/1.73m2 Mildly to moderately decreased 45 - 59 mL/min/1.73m2 Moderately to severely decreased 30 - 44 mL/min/1.73m2 Severely decreased 15 - 29 mL/min/1.73m2 Kidney Failure < 15 mL/min/1.73m2 *Relative to young adult level Estimated glomerular filtration rate is determined by the 2020 CKD-EPI equation recommended by the National Kidney Foundation (A Unifying Approach to GFR Estimation: Recommendations of the NKF-ASK Task Force on Reassessing the Inclusion of Race in Diagnosing Kidney Disease, JASN 2020). The CKD-EPI equation should not be used for patients with unstable renal function and has not been validated in children and those over 70. Current interpretive data was last reviewed 2021. Testing performed by: [facility], [address] [place] [address] Blood 12/11/2024 10:4 0 AM CDT 12/11/2024 11:03 AM CDT us Farheen Brownlee MD PhD LAB BLOOD ORDERABLES Final Result [facility] [address] [facility]. [place] [address] * (ABNORMAL) Differential, auto (12/11/2024 10:40 AM CDT) Neutrophil abs 3.99 1.50 - 6.50 K/cumm Comment:Testing performed by : [place] [address], [place] [address] Imm gran abs 0.03 0.00 - 0.10 K/cumm CERNER BJW[facility] Comment:Testing performed by : [place] [address], [place] [address] Lymphocyte abs 1.93 0.80 - 3.30 K/cumm CERNER [facility] Comment:Testing performed by : [place] [address], [address] [place] [address] Monocyte abs 0.81(H) 0.20 - 0.80 K/cumm CERNER [facility] Comment:Testing performed by : [place] [address], [place] [address] Eosinophil abs 0.25 0.00 - 0.50 K/cumm CERNER [facility] Comment:Testing performed by : [place] [address], [address] [place] [address] Basophil abs 0.04 0.00 - 0.10 K/cumm CERNER [facility] Comment:Testing performed by : [place] [address], [address] [place] [address] Neutrophil pct 56.6 % CERNER [facility] Comment: Interpretive Data Percent cell count reference ranges are not reported, since discordance with absolute values may lead to misinterpretation of CBC data. Current Interpretive Data was last revised on 2017. Testing performed by: [place] [address], [address] [place] [address] Imm gran pct 0.4 % CERNER [facility] Comment: Interpretive Data Percent cell count reference ranges are not reported, since discordance with absolute values may lead to misinterpretation of CBC data. Current Interpretive Data was last revised on 2017. Testing performed by: [facility], [facility] [address], [address] [place] [address] Lymphocyte pct 27.4 % CERNER [facility] Comment: Interpretive Data Percent cell count reference ranges are not reported, since discordance with absolute values may lead to misinterpretation of CBC data. Current Interpretive Data was last revised on 2017. Testing performed by: [facility], [facility], [address] [place] [address] Monocyte pct 11.5 % CERNER [facility] Comment: Interpretive Data Percent cell count reference ranges are not reported, since discordance with absolute values may lead to misinterpretation of CBC data. Current Interpretive Data was last revised on 2017. Testing performed by: [facility], [facility], [address] [place] [address] Eosinophil pct 3.5 % CERNER [facility] Comment: Interpretive Data Percent cell count reference ranges are not reported, since discordance with absolute values may lead to misinterpretation of CBC data. Current Interpretive Data was last revised on 2017. Testing performed by: [facility], [facility], [address] [place] [address] Basophil pct 0.6 % CERNER [facility] Comment: Interpretive Data Percent cell count reference ranges are not reported, since discordance with absolute values may lead to misinterpretation of CBC data. Current Interpretive Data was last revised on 2017. Testing performed by: [facility], [facility], [address] [place] [address] Blood 12/11/2024 10:4 0 AM CDT 12/11/2024 10:43 AM CDT Farheen Brownlee MD PhD LAB BLOOD ORDERABLES Final Result [facility] [address] Department [place] [address] * CBC with auto differential (12/11/2024 10:40 AM CDT) WBC 7.05 3.80 - 9.90 K/cumm Comment:Testing performed by : [facility], [address] [place] [address] Hgb 13.9 13.0 - 17.5 g/dL RAMIREZ ARNETT Comment:Testing performed by : [place] [address], [address] [place] [address] Hct 42.0 38.9 - 50.3 % RAMIREZ ARNETT Comment:Testing performed by : [place] [address], [address] [place] [address] Plt 166 150 - 400 K/cumm RAMIREZ ARNETT Comment:Testing performed by : [place] [address], [address] [place] [address] MPV 10.3 9.1 - 12.3 fL [facility] ARNETT Comment:Testing performed by : [place] [address], [address] [place] [address] RBC 4.41 4.30 - 5.80 M/cumm RAMIREZ ARNETT Comment:Testing performed by : [place] [address], [address] [place] [address] MCV 95.2 81.3 - 96.4 fL RAM[facility] ARNETT Comment:Testing performed by : [place] [address], [address] [place] [address] MCH 31.5 27.1 - 33.3 pg RAMIREZ ARNETT Comment:Testing performed by : [facility], [address] [place] [address] MCHC 33.1 32.3 - 35.7 g/dL RAMIREZ ARNETT Comment:Testing performed by : [facility], [address] [place] [address] RDW CV 13.2 11.1 - 14.9 % RAMIREZ ARNETT Comment:Testing performed by : [facility], [facility], [address] [place] [address] RDW SD 46.2 35.7 - 48.1 fL RAMIREZ ARNETT Comment:Testing performed by : [facility], [facility], [address] [place] [address] ANC Prelim 3.99 1.50 - 6.50 K/cumm RAMIREZ ARNETT Comment: Interpretive Data The rapid ANC is a preliminary automated count and may vary from the final ANC (Neut Abs) reported in the WBC differential that follows. Current interpretive data was last revised 2024. Testing performed by: [facility], [facility], [address] [place] [address] Blood 12/11/2024 10:4 0 AM CDT 12/11/2024 10:43 AM CDT us Farheen Brownlee MD PhD LAB BLOOD ORDERABLES Final Result Performing Organization Address City/[facility]/ZIP Co de Phone Number [facility] [address] [facility]. [employer] [place] [phone] * TSH (12/11/2024 10:40 AM CDT) Thyroid Stimulating Hormone 2.77 0.30 - 4.20 mcIUnit/mL Comment:Testing performed by : [facility], [address] [place] [address] Blood 12/11/2024 10:4 0 AM CDT 12/11/2024 11:03 AM CDT Farheen Brownlee MD PhD LAB BLOOD ORDERABLES Final Result [facility] [address] [facility] [facility] [place] [address] * T4, free (12/11/2024 10:40 AM CDT) Free T4 1.16 0.90 - 1.70 ng/dL Comment:Testing performed by : [facility], [address] [facility] [place] [address] Blood 12/11/2024 10:4 0 AM CDT 12/11/2024 11:03 AM CDT Farheen Brownlee MD PhD LAB BLOOD ORDERABLES Final Result Performing Organization Address City/[facility]/ZIP Co de Phone Number [facility] [address] [facility]. [facility] [place] [address] * Lactate dehydrogenase (LD) (12/11/2024 10:40 AM CDT) [facility] Lactate dehydrogenase (LDH) 153 100 - 250 Units/L Comment:Testing performed by : [facility], [id number] [place] [address], [place] [address] Blood 12/11/2024 10:4 0 AM CDT 12/11/2024 11:03 AM CDT Farheen Brownlee MD PhD LAB BLOOD ORDERABLES Final Result Performing Organization Address [facility] Co de Phone Number [facility] [address] [facility]. [facility] [place] [address] * Gamma GT (12/11/2024 10:40 AM CDT) GGT 16 10 - 50 Units/L Comment:Testing performed by : [facility], [address], [place] [address] Blood 12/11/2024 10:4 0 AM CDT 12/11/2024 11:03 AM CDT Farheen Brownlee MD PhD LAB BLOOD ORDERABLES Final Result Performing Organization Address City/[facility]/ZIP Co de Phone Number RAMIREZ MASCORROWCH [address] Department [place] [address] * Comprehensive metabolic panel (12/11/2024 10:40 AM CDT) Sodium 140 135 - 145 mmol/L Comment:Testing performed by : [facility], [address], [place] [address] Potassium, pl 4.7 3.3 - 4.9 mmol/L CERNER BJWCH Comment:Testing performed by : [facility], [address], [place] [address] Chloride 104 97 - 110 mmol/L CERNER BJWCH Comment:Testing performed by : [facility], [address], [place] [address] CO2 24 22 - 32 mmol/L CERNER BJWCH Comment:Testing performed by : [facility], [address], [place] [address] Anion gap 12 2 - 15 mmol/L CERNER BJWCH Comment:Testing performed by : [facility], [address], [place] [address] BUN 20 6 - 25 mg/dL CERNER BJWCH Comment:Testing performed by : [facility], [address], [place] [address] Creatinine 0.99 0.80 - 1.30 mg/dL CERNER BJWCH Comment:Testing performed by : [facility], [address], [place] [address] Glucose 82 70 - 199 mg/dL CERNER BJWCH Comment: Interpretive Data Fasting glucose >/= 126 mg/dl is diagnostic for diabetes. Fasting is defined as no caloric intake for at least 8 hours. Fasting glucose between 100 mg/dl to 125 mg/dl is diagnostic of prediabetes. In a patient with classic symptoms of hyperglycemia or hyperglycemic crisis, a random glucose >/= 200 mg/dl is diagnostic for diabetes. In the absence of unequivocal hyperglycemia, results should be confirmed by repeat testing. The classification and Diagnosis of Diabetes Diabetes Care 202; 46: S19-S40. Current interpretive data was last revised 2022. Testing performed by: [facility], [address], [place] [address] Calcium 9.4 8.5 - 10.3 mg/dL CERNER BJWCH Comment:Testing performed by : [facility], [address], [place] [address] Bilirubin, total 0.5 0.1 - 1.2 mg/dL CERNER BJWCH Comment:Testing performed by : [facility], [address], [place] [address] Protein, pl 7.1 6.5 - 8.5 g/dL CERNER BJWCH Comment:Testing performed by : [facility], [address], [place] [address] Albumin 4.3 3.5 - 5.0 g/dL CERNER BJWCH Comment:Testing performed by : [facility], [address], [place] [address] Alk phos 130 40 - 130 Units/L CERNER BJWCH Comment:Testing performed by : [facility], [address], [place] [address] ALT 28 7 - 55 Units/L CERNER BJWCH Comment:Testing performed by : [facility], [address], [place] [address] AST 41 10 - 50 Units/L CERNER BJWCH Comment:Testing performed by : [facility], [address], [place] [address] Blood 12/11/2024 10:4 0 AM CDT 12/11/2024 11:03 AM CDT us Farheen Brownlee MD PhD LAB BLOOD ORDERABLES Final Result [facility]IRE[facility]ASCORROW[facility] [address] Department [place] [address] * [facility] Hereditary Cancer NGS Panel, Blood (12/11/2024 10:31 AM CDT) [facility] Please review the PDF for results. 12/25/2024 3:19 PM CDT [facility] Comment:[facility] link Blood specimen (specimen) 12/11/2024 10:31 AM CDT 12/25/2024 3:22 PM CDT us Farheen Brownlee MD PhD LAB GENETIC TESTING Final Result [facility] [address], [address] [phone] [facility] [address], [address] [place] [address] * Airway (11/15/2024 10:31 AM CDT) Narrative Arianna Brownlee MD - 11/15/2024 10:31 AM CDT Arianna Brownlee MD 11/15/2024 10:35 AM Airway Patient location: OR Urgency: elective Indications for airway management: anesthesia Difficult airway: no Staff: Supervising provider: Eliud Martínez MD Placed by: Resident: Arianna Brownlee MD Emergent airway documentation: Risks and benefits discussed: yes Consent obtained: yes Consent given by: patient Airway prep: Preoxygenated: yes Patient position: sniffing Mask difficulty assessment: 1 - vent by mask Spontaneous ventilation during airway: absent Sedation level during airway: GA Final airway details: Final airway type: endotracheal airway Tube type: ETT ETT size: 8.0 mm Cuffed: yes Technique used for successful ETT placement: video laryngoscopy Devices/Methods used in placement: stylet, cricoid pressure and flexible tip bougie Insertion site: oral Blade type: Tiffany Blade size: 4 Cormack-Lehane (video): grade IIb - view of arytenoids or posterior of glottis only Cuff inflated with: air ETT to lips: 24 cm Placement verified by: CO2 detection Airway secured with: silk tape Number of attempts: 1 us Eliud Martínez MD ANESTHESIA ORDERABLES Final Result * POCT [id number]-[id number]-HCT, WB - ISTAT (11/15/2024 8:57 AM CDT) Na POC 141 135 - 145 mmol/L K POC 4.3 3.3 - 4.9 mmol/L [facility] Comment: Interpretive Data This method is not able to assess for hemolysis, which may falsely increase potassium concentrations. If further testing is needed to evaluate this result, consider in-laboratory plasma potassium. Current Interpretive Data was last revised on 2022. Glucose POC i-STAT 94 70 - 199 mg/dL [facility] Hct, POC 39.0 38.9 - 50.3 % [facility] Blood 11/15/2024 8:57 AM CDT 11/15/2024 8:57 AM CDT us Estrada Miller MD LAB POCT ORDERABLES - DEV ICE Final Result [facility] Department [place] [address] from Last 3 Months Insurance [facility] Member Subscriber Plan / Payer ( fective 2018-Present) Name:Nelson Madden Relation to Subscriber:Self Name:Nelson Madden Payer ID:[id number] (NA) Type:MEDICARE RISK OTHER Address: [address] Advance Directives For more information, please contact: [phone] * Full Code (Latest Code Status on File) Date Activated Date Inactivated Comments 10/14/2024 2:56 PM 10/15/2024 6:16 PM Care Teams Steel Pourer Relationship Specialty Start Date End Date Neil Wu MD [address] [place] [address] PCP - General Family Practice 07/30/24 Lacey Rivera MD [address] [place] [address] Dermatology 07/24/24 Estrada Miller MD [address] [facility] [address] [place] [address] Consulting Physician Plastic Surgery 10/28/24
--- OUTSIDE RECORDS SUMMARY | 2025-02-04 09:37 | XMS_ITS | Clinical Summary ---
Author Organization [facility] Address [address] [place] [address] Care Team Providers Care Artist Mannequin Coloring Name Role Phone Neil Wu MD Primary Care Provider [phone] Allergies Active Allergy Reactions Criticality Noted Date Comments Nsaids Other (see comment) Low 12/01/2022 Patient instructed not to take by his social psychologist Medications cetirizine (ZYRTEC ALLERGY) 10 MG tablet [...] mg total) by mouth daily. 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 Gender Identity Not on file Sexual Orientation [...] 10:33 AM CDT Height 177.8 cm (5' 10) 10/24/2023 10:33 AM CDT Body Mass Index 24.16 10/24/2023 10:33 AM CDT Plan of Treatment Health Maintenance Due Date Last Done Comments Hepatitis C 11/26/1963 DTaP, Tdap and Td Vaccines (1 - Tdap) 1964 Zoster Vaccines (1 of 2) 11/26/1995 Annual Medicare Wellness Visit 2010 PHQ-2 (Physician [place]) 04/17/2024 10/24/2023 COVID-19 Vaccine ( season) 2024 01/31/2023, 12/23/2021, 01/13/2021, Additional history exists Influenza Adult (#1) 2025 12/25/2017, 01/24/2017, 01/19/2016, Additional history exists Pneumococcal Vaccine: 50+ Years Completed 01/19/2016, 02/16/2015, 02/03/2014 RSV Immunization or 60+ Years Completed 01/14/2023 Hepatitis A Vaccines Aged Out No long er eligible based on patient's age to complete this topic Meningococcal B Vaccine Aged Out No l onger eligible based on patient's age to complete this topic Meningococcal Vaccine Aged Out No rose nikole eligible based on patient's age to complete this topic RSV Immunizations Under 20 Months Aged Out No longer eligible based on patient's age to complete this topic Insurance [facility] Care Teams Artist Mannequin Coloring Relationship Specialty Start Date End Date Neil Wu MD [address] [place] [address] PCP - General FAMILY PRACTICE 06/09/23
[2025-02-04 09:48] LABS: Alanine Aminotransferase 10 U/L (6-50); Albumin Level 4.4 g/dL (3.5-5.1); Alkaline Phosphatase 108 U/L (38-126); Anion Gap 9 mmol/L (4-12); Aspartate Amino Transferase 42 U/L (17-59); Bilirubin,Total 0.6 mg/dL (0.2-1.3); Blood Urea Nitrogen 22 mg/dL (9-20); Calcium 9.3 mg/dL (8.4-10.2); Carbon Dioxide 27 mmol/L (22-30); Chloride 103 mmol/L (98-107); Estimated Glomerular Filt Rate > 60; Glucose 80 mg/dL (65-110); Potassium 4.1 mmol/L (3.4-5.0); Sodium 139 mmol/L (137-145); Total Protein 8.0 g/dL (6.3-8.2)
[2025-02-04 09:50] LABS: Iron 116 ug/dL (49-181)
[2025-02-04 10:05] LABS: Percent Iron Saturation 37 % (20-50)
[2025-02-04 10:24] LABS: Thyroid Stimulating Hormone 2.530 uIU/mL (0.465-4.680)
[2025-02-04 10:31] LABS: Ferritin 87.80 ng/mL (11.1-264)
[2025-02-04 10:43] LABS: Vitamin B12 890.0 pg/mL (239-931)
== END 2025-02-04 08:52 | disposition home or self-care (01) ==
LOC: ANHLAB 08:53
PROVIDERS: PCP Family Medicine; Visit Provider Family Medicine
DX: I35.0 Nonrheumatic aortic (valve) stenosis (principal); I95.1 Orthostatic hypotension; G20.C Parkinsonism, unspecified; G25.9 Extrapyramidal and movement disorder, unspecified; R41.3 Other amnesia; N52.9 Male erectile dysfunction, unspecified; Z95.2 Presence of prosthetic heart valve; Z79.899 Other long term (current) drug therapy
CPT/HCPCS: 36415; 80053; 81001; 82306; 82607; 82728; 83540; 83550; 84443; 85027

== ENCOUNTER 2025-03-14 16:23 | Emergency (ER) | payer OTHER, SELFPAY ==
--- OUTSIDE RECORDS SUMMARY | 2024-10-14 07:10 | XMS_ITS | Encounter Summary ---
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) Procedures NM Lymphoscintigraphy (Skin Cancer) Nadia Bravo MD [address] [id number] [place] [address] Phone: tel: fax: [address] [address] Referral ID Status Reason Start Date Expiration Date V isits Requested Visits Authorized [id number] Authorized 08/20/2024 09/19/2025 2 2 Reason for Visit * Auth/Cert (Routine) Specialty Diagnoses / Procedures Referred By Contac t Referred To Contact Diagnoses Malignant melanoma of lower extremity, unspecified laterality (HCC) Malignant melanoma of lower extremity, unspecified laterality (HCC) [C43.70] Procedures LA EXCISION MAL LESION TRUNK/ARM/LEG 2.1-3.0 CM LA INTRAOP SENTINEL LYMPH NODE ID W/DYE INJECTION BIOPSY SENTINEL LYMPH NODE WITH LYMPHOSCINTIGRAPHY EXCISION CYST/LESION/MASS - LOWER EXTREMITY Referral ID Status Reason Start Date Expiration Date Visits Re quested Visits Authorized [id number] 1 1 Encounter Details Date Type Department Care Team (Latest Contact Info) Description 10/14/2024 8:10 AM CDT Hospital Encounter [facility] ([facility]) [address] [place] [address] Malignant melanoma of left lower leg (HCC) Social History Tobacco Use Types Packs/Day Years Used Date Smoking Tobacco: Never Passive Smoke Exposure: Never Smokeless Tobacco: Never AUDIT-C Answer Date Recorded Q1: How often do you have a drink containing alcohol? Never 11/15/2024 Q2: How many drinks containi ng alcohol do you have on a typical day when you are drinking? Patient does not drink Q3: How often do you have si x or more drinks on one occasion? Never 11/15/2024 Personal Safety Answer Date Recorded Have you ever been in or are you currently in a harmful physical or emotional relationship or is someone making you feel afraid or unsafe? Denies 11/15/2024 Sex and Gender Information Value Date Recorded Sex Assigned at Not on file Legal Sex Male 6:15 AM [employer] Gender Identity Male 01/02/2021 9:41 AM CDT Sexual Orientation Straight 01/02/2021 9: 41 AM CDT documented as of this encounter Functional Status * C.A.G.E. Question Answer Date of Assessment Author Have you ever felt the need to Cut down on your drinking? 0 10/14/2024 4:37 PM CDT Sydni Campos RN Have people ever Annoyed yo u by criticizing your drinking? 0 10/14/2024 4:37 PM CDT Evita Campos RN Have you ever felt bad or G uilty about your drinking? 0 10/14/2024 4:37 PM SONJAT Sydni Campos RN Have you ever had a drink fi rst thing in the morning to steady your nerves or get rid of a hangover? Eye opener tender? 0 10/14/2024 4:37 PM SONJAT Sydni Campos RN CAGE SCORE: 2 or Greater = Positive 0 10/14 4:37 PM CDT Sydni Campos, RICHARD * Difference in Last Two Chema Scores Answer Date of Assessment Author 0 11/15/2024 12:00 PM SONJAT Olivia Han RN * Question Answer Date of Assessment Author MAP (mmHg) 113 11/15/2024 12:10 PM SONJAT Ellen Han RN * [place] Fall Risk Question Answer Date of Assessment Author History of Falling 0 11/15/2024 11:48 AM Ellen Avendano RN Secondary Diagnosis 15 11/15/2024 11:48 AM Ellen Elizondo RN Ambulatory Aids 0 11/15/2024 11:48 AM CDT Ellen Rush RN Intravenous Therapy/Heparin/Saline Lock 20 11/15/2024 11:48 AM Olivia Franz RN Gait/Transferring 0 11/15/2024 11:48 AM Ellen Franz RN Mental Status 0 11/15/2024 11:48 AM CDT Ellen Pace RN [place] Fall Risk Score (Score >= 45 places fall precaution order) 35 11/15/2024 11:48 AM Ellen Franz RN Prior Fall Event (Autopopulated from EMR) None found 11/15/2024 11:48 AM SONJAT Valdo Han RN * Chema Scale Question Answer Date of Assessment Author Sensory Perceptions 3 11/15/2024 12:00 PM C Ellen Rae RN Moisture 4 11/15/2024 12:00 PM Ellen Franz RN Activity 3 11/15/2024 12:00 PM Ellen Franz RN Mobility 3 11/15/2024 12:00 PM Ellen Franz RN Nutrition 3 11/15/2024 12:00 PM Ellen Franz RN Friction and Shear 3 11/15/2024 12:00 PM Ellen Avendano RN Chema Scale Score 19 11/15/2024 12:00 PM Ellen Avendano RN * BP Location Answer Date of Assessment Author Right arm 01/01/2025 3:06 PM CDT Andreea Unger MA * Question Answer Date of Assessment Author BP Method Automatic 10/15/2024 12:51 PM CDT Angella Hayden * Fall Risk Interventions Question Answer Date of Assessment Author All Low Fall Interventions Applied Yes 11/15/2024 11:48 AM CDT Ellen Han RN All Moderate Fall Interventions Applied No 11/15/2024 11:48 AM CDT Ellen Han RN All Moderate Fall Risk Interventions EXCEPT: PT eval requested or obtained;OT eval requested or obtained 11/15/2024 8:29 AM CDT Macrina Phelps RN All High Fall Risk Interventions Applied No 11/15/2024 11:48 AM CDT Ellen Han RN All High Risk Interventions EXCEPT: Bed alarm;Chair alarm 11/15/2024 8:29 AM CDT Macrina Phelps RN Reason For Exception(s) preo 11/16/19 8:29 AM SONJAT Macrina Phelps RN Reason For Exception(s) preop 11/16/19 8:29 AM CDT Macrina Phelps RN * B.M.A.T. - Bedside Mobility Assessment Tool for Nurses Question Answer Date of Assessment Author Is patient able to participa te in the BMAT? Yes 10/14/2024 8:18 PM CDT Matilde Maloney BMAT Level Level 3 - Yellow 10/14/2024 8:18 PM CDT Matilde Hankins * Question Answer Date of Assessment Author 1. Has the patient self-repo rted, presented with clinical signs of, or have a documented history of any of the following within the past 30 days? No 10/14/2024 3:00 PM CDT Sydni Campos RN * Question Answer Date of Assessment Author Is the patient being treated today because it is known or suspected that they prepared, started, or tried to end their life? No 10/14/2024 3:00 PM CDT Sydni Campos RN * Question Answer Date of Assessment Author 1. In the past month, have y ou wished you were or that you could go to sleep and not wake up? No 10/14/2024 3:00 PM Sydni Landin RN 2. In the past month, have y ou actually had any thoughts of killing yourself? No 10/14/2024 3:00 PM Sydni Landin RN 6. Have you ever done anythi ng, started to do anything, or prepared to do anything to end your life? No 10/14/2024 3:00 PM Sydni Landin RN * Suicide Risk Level Answer Date of Assessment Author No risk level 10/14/2024 3:00 PM Evita Landin RN * Self-Injurious Risk Level Answer Date of Assessment Author No risk level 10/14/2024 3:00 PM Evita Landin RN * Pressure Injury Prevention Question Answer Date of Assessment Author Pressure Ulcer Prevention Interventions Keep skin clean and dry (Sensory Perception/Moistur e) 11/15/2024 12:00 PM Ellen Franz RN * Transdermal Patch Assessment on Admission Answer Date of Assessment Author Not Present 10/14/2024 3:00 PM Evita Landin RN * AUDIT-C Score Answer Date of Assessment Author 0 11/15/2024 8:28 AM Vivek Garcia RN * Alcohol Use Question Answer Date of Assessment Author Q1: How often do you have a drink containing alcohol? Never 11/15/2024 8:28 AM Macrina Garcia RN Q2: How many drinks containing alcohol do you have on a typical day when you are drinking? Patient does not drink 11/15/2024 8:28 AM Macrina Garcia RN Q3: How often do you have six or more drinks on one occasion? Never 11/15/2024 8:28 AM Macrina Garcia RN * Integumentary Question Answer Date of Assessment Author Skin Color Appropriate for ethnicity 11/15/2024 12:00 PM Ellen Franz RN Skin Condition/Temp Warm;Dry 11/15/2024 1 2:00 PM Ellen Franz RN Skin Integrity Surgical incision 11/15/2024 12: 00 PM Ellen Franz RN Skin Turgor Non-tenting 11/15/2024 12:00 PM CDT Ellen Han RN Integumentary Additional Assessments Yes-Chema 11/15/2024 12:00 PM CDT Ellen Han RN Integumentary (WDL) X 11/15/2024 1 2:00 PM CDT Ellen Han RN Skin Location L leg 11/15/2024 12:00 PM CDT Ellen Han RN * Chema Scale Question Answer Date of Assessment Author Chema Scale Used Chema 11/15/2024 12:00 PM CDT Ellen Han, RICHARD * BP Location Answer Date of Assessment Author Right arm 01/01/2025 3:06 PM CDT Andreea Unger MA * Question Answer Date of Assessment Author BP Method Automatic 10/15/2024 12:51 PM CDT Angella Hayden * Fall Risk Interventions Question Answer Date of Assessment Author All Low Fall Interventions Applied Yes 11/15/2024 11:48 AM Ellen Franz RN All Moderate Fall Interventions Applied No 11/15/2024 11:48 AM Ellen Franz RN All Moderate Fall Risk Interventions EXCEPT: PT eval requested or obtained;OT eval requested or obtained 11/15/2024 8:29 AM SONJAT Macrina Phelps RN All High Fall Risk Interventions Applied No 11/15/2024 11:48 AM Ellen Franz RN All High Risk Interventions EXCEPT: Bed alarm;Chair alarm 11/15/2024 8:29 AM SONJAT Macrina Phelps RN Reason For Exception(s) preo 11/16/19 8:29 AM SONJAT Macrina Phelps RN Reason For Exception(s) preop 11/16/19 8:29 AM SONJAT Macrina Phelps RN * ADL Screening Question Answer Date of Assessment Author Patient's Vision Adequate to Safely Complete Daily Activities Yes 10/14/2024 3:00 PM CDT Sydni Campos RN Patient's Judgement Adequate to Safely Complete Daily Activities Yes 10/14/2024 3:00 PM CDT Sydni Campos RN Patient's Memory Adequate to Safely Complete Daily Activities Yes 10/14/2024 3:00 PM SONJAT Sydni Campos RN Patient Able to Express Needs/Desires Yes 10/14/2024 3:00 PM SONJAT Sydni Campos RN Dressing Independent 10/14/2024 3:00 PM SONJAT Sydni Campos RN Grooming Independent 10/14/2024 3:00 PM CDT Sydni Campos RN Feeding Independent 10/14/2024 3:00 PM SONJAT Sydni Campos RN Bathing Independent 10/14/2024 3:00 PM SONJAT Sydni Campos RN Toileting Independent 10/14/2024 3:00 PM SONJAT Sydni Campos RN In/Out Bed Independent 10/14/2024 3:00 PM SONJAT Sydni Campos RN Walks in Home Independent 10/14/2024 3:00 PM SONJAT Sydni Campos RN Weakness of Legs Left 10/14/2024 3:00 PM CDT H Sydni campbell RN Weakness of Arms/Hands None 10/14/2024 3:00 PM SONJAT Sydni Campos RN Hearing - Right Ear Functional 10/29/2024 10:20 AM Katerin Roberts RN Hearing - Left Ear Functional 10/29/2024 10:20 AM Katerin Wen RN Dominant hand? Left 10/14/2024 3:00 PM CDT Hes Sydni gibbs RN Decline in ADLs in last 2 weeks? No 10/14/2024 3:00 PM Sydni Landin RN * Therapy Consults Question Answer Date of Assessment Author PT Evaluation Needed 2 10/14/2024 3:00 PM Sydni Easton RN OT Evaluation Needed 2 10/14/2024 3:00 PM Sydni Easton RN CADDY PACKER Evaluation Needed 2 10/14/2024 3:00 PM Sydni Landin RN * Assistive Devices Question Answer Date of Assessment Author Assistive Devices/DME Eyeglasses;Cane;Wa lker; Manual wheelchair 10/29/2024 10:20 AM CDT Katerin Gil RN * Hygiene Question Answer Date of Assessment Author Hygiene Level of Assistance Patient refused 10/15/2024 10:40 AM CDT Angella Ball Reason not bathed/showered Patient/family refused bath/shower 10/15/2024 10:40 AM CDT Angella Ball Bath Not bathed/showered 10/15/2024 10:40 AM C DT Angella Ball documented as of this encounter Mental Status * Question Answer Entry Date Author Level of Consciousness Drowsy;Responds t o voice 11/15/2024 11:30 AM CDT Ellen Han RN Neuro (WDL) WDL 11/15/2024 12:00 PM CDT Ellen Han RN documented in this encounter Plan of Treatment Not on file documented as of this encounter Procedures Procedure Name Priority Date/Time Associated Diagnosis Comments NM LYMPHOSCINTIGRAPHY (SKIN CANCER) Schedule Routine, Read Routine (OP Routine) 10/14/2024 10:02 AM CDT Malignant melanoma of left lower leg (HCC) documented in this encounter Results * NM Lymphoscintigraphy (Skin Cancer) (10/14/2024 10:02 AM CDT) Anatomical Region Laterality Modality N/A Nuclear Medicine 10/14/2024 10:1 2 AM CDT Impressions 10/14/2024 10:22 AM CDT [place] node identified as described above for subsequent intraoperative removal with gamma probe guidance. Dictated by: Kendall Cai MD The radiology attending physician has personally reviewed this study, and had reviewed and/or edited this written report and agrees with it. Electronically signed by: Albert Garcia, DO [place] 10/14/2024 10:22 AM CDT EXAMINATION: LYMPHOSCINTIGRAPHY DATE OF STUDY: 10/14/2024 RADIOPHARMACEUTICAL: 568 microcuries Tc-99m Tilmanocept intradermally HISTORY: 78-year-old man with malignant melanoma of the left lower leg. TECHNIQUE: The tracer was injected in the left lower leg around the lesion by Dr. Albert Garcia. FINDINGS: Dynamic images were obtained for 20 minutes after injection of tracer. Delayed images of the left lower extremity were obtained beginning at 20 minutes after injection in anterior and posterior projections. Intense stewart uptake is seen in 1 node located in left inguinal region. Procedure Note Albret Garcia DO - 10/14/2024 EXAMINATION: LYMPHOSCINTIGRAPHY DATE OF STUDY: 10/14/2024 RADIOPHARMACEUTICAL: 568 microcuries Tc-99m Tilmanocept intradermally HISTORY: 78-year-old man with malignant melanoma of the left lower leg. TECHNIQUE: The tracer was injected in the left lower leg around the lesion by Dr. Albert Garcia. FINDINGS: Dynamic images were obtained for 20 minutes after injection of tracer. Delayed images of the left lower extremity were obtained beginning at 20 minutes after injection in anterior and posterior projections. Intense stewart uptake is seen in 1 node located in left inguinal region. IMPRESSION: [place] node identified as described above for subsequent intraoperative removal with gamma probe guidance. Dictated by: Kendall Cai MD The radiology attending physician has personally reviewed this study, and had reviewed and/or edited this written report and agrees with it. Electronically signed by: Albert Garcia DO Nadia Bravo MD [facility] PROCEDURES Final Result documented in this encounter Visit Diagnoses Diagnosis Malignant melanoma of left lower leg (HCC) documented in this encounter Administered Medications Inactive Administered Medications - up to 3 most recent administrations Medication Order MAR Action Action Date Dose Rate Site Tc-99m tilmanocept (lymphoseek) 0.5 mci injection 0.5 millicurie 0.5 millicurie (500 microcurie), intradermal, Once in imaging, radiopharmaceutical, Starting on 10/14/24 at 0903, For 1 dose Given 10/14/2024 9:10 AM CDT 0.568 millicuries documented in this encounter Orders Medications Ordered That Henry ht Not Have Been Administered Count Last Ordered Date First Ordered Date Tc-99m tilmanocept (lymphose ek) 0.5 mci injection 0.5 millicurie 1 10/14/2024 documented in this encounter Care Teams Hide Paster Relationship Specialty Start Date End Date Neil Wu MD [address] [place] [address] PCP - General Family Practice 07/30/24 Lacey Rivera MD [address] [place] [address] Dermatology 07/24/24 documented as of this encounter
[2025-03-14] VITALS (9 sets, daily range): BP systolic 140–164; BP diastolic 77–94; PULSE 67–84; RESP 11–25; TEMP 36.4–36.6; O2SAT 95–100
--- OUTSIDE RECORDS SUMMARY | 2025-03-14 16:26 | XMS_ITS | Clinical Summary ---
Author Organization [facility] Address [address] [place] [address] Care Team Providers Care Quality Control Industrial Engineer Name Role Phone Lacey Rivera MD Unavailable [phone] Neil Wu MD Primary Care Provider [phone] Estrada Miller MD Unavailable [phone] Allergies Active Allergy Reactions Criticality Noted Date Comments Nsaids (Non-Steroidal Anti-Inflammatory Drug) Other (See comments) Low 12/01/2022 Patient instructed not to take by his gardener Medications aspirin 81 mg enteric coated tablet Take 1 tablet (81 mg total) by mouth daily 30 tablet 11 021 Active carbidopa-levodo pa (SINEMET) 25-100 mg per tabletIndication s:Parkinsonism Take 1 tablet by mouth 3 (three) times a day 2 tab in AM , 2 tab in afternoon, and 1 tablet at night 023 Active FeroSuL 325 mg (65 mg iron) tabletIndication s:Iron Deficiency Anemia Take 1 tablet (325 mg total) by mouth every morning 023 Active famotidine (PEPCID) 20 mg tablet Take 1 tablet by mouth twice daily 180 tablet 024 Active Additional Information Patient taking differently:20 mg oral2 times daily PRN, indigestion, heartburn, NONE IN A COUPLE MONTHS , Indications: gastroesophageal reflux disease, Informant: Self, Reported on 01/01/2025 cholecalciferol (Vitamin D3) 2000 unit capsuleIndicatio ns:Vitamin D Deficiency Take 1 capsule (2,000 Units [...] vomiting NONE IN MORE THAN A MONTH 025 Active amoxicillin (AMOXIL) 250 mg capsuleIndicatio ns:Prophylaxis, Medical Take 4 capsules (1,000 mg total) by mouth as needed Takes prior to dental appointment r/t cardiac valve replacement 025 Active fexofenadine (KENYATTA) 180 mg tabletIndication s:Allergic Rhinitis Take 1 tablet (180 mg total) by mouth nightly Active ascorbic pxhx-vczoeumv-yx n 1,000 mg powder effervescent in packet Take 1 tablet by mouth every evening Emergen-C Active MAGNESIUM GLYCINATE ORALIndications: supplement Take 1 Scoop by mouth every evening Active polyethylene glycol (MIRALAX) 17 gram packetIndication s:constipation Take 1 packet (17 g total) by mouth every evening Active docusate sodium (COLACE) 100 mg capsuleIndicatio ns:constipation Take 1 capsule (100 mg total) by mouth 2 (two) times a day 30 capsule Active Additional Information Patient taking differently:100 mg oralAs needed, constipation, Indications: constipation, Informant: Self, Reported on 01/01/2025 oxyCODONE (ROXICODONE) 5 mg immediate release tabletIndication s:Pain Take 1 tablet (5 mg total) by mouth every 6 (six) hours as needed (breakthrough pain) May space to every 8 hours and wean use as tolerated. Please discard unused medication as instructed 8 tablet Active midodrine (PROAMATINE) 5 mg tabletIndication s:Symptomatic Orthostatic Hypotension Take 1 tablet (5 mg total) by mouth 3 (three) times a day 90 tablet 11 025 12/04 Active clopidogreL (PLAVIX) 75 mg tablet Take 1 tablet by mouth once daily 90 tablet 2 11/12/2 025 Active atorvastatin (LIPITOR) 20 mg tabletIndication s:Coronary artery disease involving [place] coronary artery of [place] heart without angina pectoris Take 1 tablet by mouth nightly 90 tablet 2 Active clopidogreL (PLAVIX) 75 mg tablet Take 1 tablet by mouth once daily 90 tablet 025 02/26 Discontinued atorvastatin (LIPITOR) 20 mg tabletIndication s:hyperlipidemia Take 1 tablet (20 mg total) by mouth nightly 90 tablet 025 02/26 Discontinued Active Problems Problem Noted Date Diagnosed Date Open wound of lower leg, initial encounter 10/23 Melanoma of lower limb, unspecified laterality 0 10/14/2024 Malignant melanoma of lower extremity 08/14/2024 Orthostasis 06/28/2024 Aortic prosthetic valve regurgitation 06/28/2024 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 11/30/2022 Hyperlipidemia LDL goal <70 11/23/2021 Coronary artery disease invo lving [place] coronary artery of [place] heart without angina pectoris 04/30/2021 Gastroesophageal reflux disease 04/30/2021 Status post transcatheter ao rtic valve replacement (TAVR) using bioprosthesis 01/11/2021 Nonrheumatic aortic valve stenosis 09/28/2020 Nonrheumatic mitral valve regurgitation 09/29/19 21 Pre-syncope 09/28/2020 SOB (shortness of breath) 09/28/2020 Encounters Date Type Department Care Team Description 01/02/2025 10:45 AM CDT Office Visit [facility] Surgery [address] [place] [address] [place] [address] Jazmine Pantoja NP Melanoma of lower leg, left (HCC) (Primary Dx) 01/01/2025 3:00 PM CDT Office Visit [facility] Cardiology [address] [place] [address] Alireza Campbell MD Coronary artery disease involving [place] coronary artery of [place] heart without angina pectoris (Primary Dx); Aortic prosthetic valve regurgitation, subsequent encounter; Status post transcatheter aortic valve replacement (TAVR) using bioprosthesis; Orthostasis; Nonrheumatic mitral valve regurgitation; Hyperlipidemia LDL goal <70 12/27/2024 Telephone Health system Medicine Oncology [address] [facility] [address] [place] [address] Christy Garcia RN 12/27/2024 Orders Only Health system Medicine Oncology [address] [facility] [address] [place] [phone] Christy Garcia, RN Malignant melanoma of left lower extremity including hip (HCC) (Primary Dx) 12/18/2024 10:30 AM CDT Office Visit [facility] Surgery [address] [place] [address] [place] [address] Pet, Estrada Martinez MD Melanoma of lower leg, left (HCC) (Primary Dx) from Last 3 Months Immunizations Immunization Administration [...] ANGIOGRAPHY AND WITH OR WITHOUT LEFT VENTRICULOGRAM 52533 OTHER SURGICAL HISTORY 10/14/2024 BIOPSY SENTINEL LYMPH [...] on file Legal 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 Gender Identity Male 01/02/2021 9:41 AM CDT [...] Visit 65+ 2010 Covid-19 Vaccine (6 - 2024-2 6 season) 2024 12/23/2021, 01/13/2021, 07/06/2020, Additional history exists Influenza Vaccine (#1) 2024 , 01/28/2021, 01/02/2020, Additional history exists Fall Risk Assessment 11/15/2025 11/15/2024, 12/01/19 23 Pneumococcal vaccine 65+ Completed 020, 01/19/2016, 02/16/2015, Additional history exists Medical Devices Implanted Type Area Insurance Instructor Device Identifier Shelf Expiration Date Model / Serial / Lot Integra [employer] Amelia Integra 5x5cm Mesh Dressing Biological Bovine Collagen [id number] - [id number] Implanted:Qty: 1 on 10/14/2024 by Nadia Bravo MD at [facility] Mesh Integra [employer] Amelia [id number] 05/17/2026 [id number] / / [id number] [employer] [id number] Perclose 6fr Suture Mediate Knot Push Vascular Device Closure - [id number] Implanted:Qty: 1 on 12/03/2020 by Harsha Bui MD at [facility] [employer] 08/14/2022 [id number] / / [id number] [employer] [id number] Perclose 6fr Suture Mediate Knot Push Vascular Device Closure - [id number] Implanted:Qty: 1 on 12/03/2020 by Harsha Bui MD at [facility] [employer] 08/14/2022 [id number] / / [id number] [employer] 09345-48 Perclose 6fr Suture Mediate Knot Push Vascular Device Closure - [id number] Implanted:Qty: 1 on 12/03/2020 by Harsha Bui MD at [facility] [employer] 07/15/2022 [id number] / / [id number] Darling Lifesciences [id number] Valve Heart 26mm Kenny 3 Transcatheter - [id number] Implanted:Qty: 1 on 12/03/2020 by Harsha Bui MD at [facility] [employer] 08/26/2022 [id number] / / Daig Amelia [id number] Device Closure Angio-Seal Vip Bondek-Plus Polyglyd L70 Cm Od6 Fr Odsec.035 In Vascular - [id number] Implanted:Qty: 1 on 12/03/2020 by Harsha Bui MD at [facility] [employer] Amelia 08/14/2021 [id number] / / [id number] 9 Storey [employer] Amelia Sealant Fibrin Patch [place] Set Frozen Prefilled Syringe Artiss 4ml [id number] - [id number] - [id number] Implanted:Qty: 1 on 12/08/2022 by Curtis Gregg MD at [facility] Left: Leg [employer] Amelia 06/14/2024 [id number] / [id number] / [id number] Insurance [facility] [place] [id number] Advance Directives For more information, please contact: [phone] * Full Code (Latest Code Status on File) Date Activated Date Inactivated Comments 10/14/2024 2:56 PM 10/15/2024 6:16 PM Care Teams Quality Control Industrial Engineer Relationship Specialty Start Date End Date Neil Wu MD [address] [place] [address] PCP - General Family Practice 07/30/24 Lacey Rivera MD [address] [place] [address] Dermatology 07/24/24 Estrada Miller MD [address] [facility] [place] [address] Consulting Physician Plastic Surgery 10/28/24
--- OUTSIDE RECORDS SUMMARY | 2025-03-14 16:26 | XMS_ITS | Clinical Summary ---
Author Organization [facility] Address [address] [place] [address] Care Team Providers Care Administrator Of Home Health Name Role Phone Neil Wu MD Primary Care Provider Allergies Active Allergy Reactions Criticality Noted Date Comments Nsaids Other (see comment) Low 12/01/2022 Patient instructed not to take by his information technology program manager Medications cetirizine (ZYRTEC ALLERGY) 10 MG tablet [...] on file Legal Sex Male 12:[address] MAN Gender Identity Not on file Sexual Orientation [...] Care Team (Late st Contact Info) Description 05/22/2025 1:[address] MAN Office Visit [facility] - [address] [place] [phone] Yovani Duenas MD [address] [place] [address] Health Maintenance Due Date Last Done Comments Hepatitis C 11/26/1963 DTaP, Tdap and Td Vaccines (1 - Tdap) 1964 Zoster Vaccines (1 of 2) 11/26/1995 Annual Medicare Wellness Visit 2010 PHQ-2 (Physician [place]) 04/17/2024 10/24/2023 COVID-19 Vaccine ( season) 2024 [...] complete this topic Insurance [employer] Care Teams Administrator Of Home Health Relationship Specialty Start Date End Date Neil Wu MD [address] [place] [address] PCP - General FAMILY PRACTICE 06/09/23
--- NOTE | 2025-03-14 16:47 | ECG_ITS ---
Test Date: 2025-03-14 20:27:07 Measurements Intervals [place] Rate: 66 P: 32 WA: 170 QRS: -49 QRSD: 86 T: 18 QT: 389 QTc: 408 Interpretive Statements SINUS RHYTHM LEFT ANTERIOR FASCICULAR BLOCK [QRS AXIS <= -45, QR IN I, RS IN II] ABNORMAL ELECTROCARDIOGRAM No previous ECG available for comparison Electronically Signed On 03-15-2025 08:06:21 SAND MILLER by Sergey Paula M.D.
--- NOTE | 2025-03-14 16:48 | ED_ITS ---
HPI - Abdominal Pain General Chief Complaint: Abdominal Pain <Emily Kang [employer]ER - Last Filed: 03/14/25 16:49> Stated Complaint: abdominal pain x2 days <Emily Kang [employer]ER - Last Filed: 03/14/25 16:49> Time Seen by Provider: 03/14/25 16:48 <Emily Kang [employer]ER - Last Filed: 03/14/25 16:49> Focused HPI: Patient is a 79-year-old male who presents to the ER with bilateral lower abdominal pain that started 2 days ago. He also endorses nausea, vomiting, and diarrhea. Patient endorses a history of Parkinson's disease, artificial heart valve, urinary retention, and melanoma. He denies any recent fevers, shortness of breath, or chest pain. Patient denies any recent sick contacts. He reports the last bowel movement was approximately half an hour prior to arrival and it was normal for him. GENERAL: Ill-appearing, well-nourished, and in no acute distress. HEAD: Normocephalic, atraumatic. CHEST: Clear to auscultation. ?No respiratory distress. HEART: Regular rate and rhythm.? NEURO: ?Alert and oriented x3. Patient screened in triage and initial orders placed.? ?Additional care and disposition to be based upon?diagnostic testing and treatment. <Emily Kang [employer]ER - Last Filed: 03/14/25 16:49> Focused HPI: Patient is a 79-year-old male who presents to the ER with bilateral lower abdominal pain that started 2 days ago. He also endorses nausea, vomiting, and diarrhea. Patient endorses a history of Parkinson's disease, artificial heart valve, urinary retention, and melanoma. He denies any recent fevers, shortness of breath, or chest pain. Patient denies any recent sick contacts. He reports the last bowel movement was approximately half an hour prior to arrival and it was normal for him. GENERAL: Well-appearing, well-nourished, and in no acute distress. HEAD: Normocephalic, atraumatic. CHEST: Clear to auscultation. ?No respiratory distress. HEART: Regular rate and rhythm.? NEURO: ?Alert and oriented x3. Patient screened in triage and initial orders placed.? ?Additional care and disposition to be based upon?diagnostic testing and treatment. <Jose Meija MD - Last Filed: 03/15/25 00:06> History of Present Illness HPI narrative: Agree with the HPI above <Jose Mejia MD - Last Filed: 03/15/25 00:06> Related Data Home Medications: Home Medications ?Medication ?Instructions ?Recorded ?Confirmed ?Last Taken ?Type aspirin 81 mg tablet 81 mg PO DAILY 11/28/2010/15 Unknown History cetirizine 10 mg tablet (Zyrtec) 10 mg PO PRN PRN Leonel estion 11/28/20 10/27/23 Unknown History clopidogrel 75 mg tablet 75 mg PO DAILY 01/21/2110/15 Unknown History atorvastatin 20 mg tablet 20 mg PO DAILY 09/15/2110/15 Unknown History carbidopa 25 mg-levodopa 100 mg 1 tablet PO TID 10/27/23 Unknown History tablet ferrous sulfate 325 mg (65 mg 325 mg PO DAILY 03/07/23 10/27/23 Unknown History iron) tablet (FeroSul) famotidine 20 mg tablet 20 mg PO BID PRN 06/20/23 Unknown History midodrine 2.5 mg tablet mg PO ONCE 07/04/24 Unknown History <Emily Kang APRN - Last Filed: 03/14/25 16:49> Allergies/Adverse Reactions: Allergies Allergy/AdvReac Type Severity Reaction Status Date / Time No Known Allergies Allergy Verified 03/14/25 16:25 <Emily Kang APRN - Last Filed: 03/14/25 16:49> Review of Systems 2 Review of Systems: As reviewed above in HPI <Jose Mejia MD - Last Filed: 03/15/25 00:06> All systems reviewed & are unremarkable except as noted in HPI and below < Jose Mejia MD - Last Filed: 03/15/25 00:06> PMFSH Past Medical History Medical History: Medical History Parkinson disease Murmur Anxiety Other and unspecified hyperlipidemia Benign prostatic hyperplasia without lower urinary tract symptoms Hyperlipidemia Environmental allergies Insect bite of lower leg Hordeolum externum left lower eyelid GERD (gastroesophageal reflux disease) <Emily Kang APRN - Last Filed: 03/14/25 16:49> Surgical History Surgical History: Surgical History S/P TAVR (transcatheter aortic valve replacement) History of surgery on upper extremity right arm <Emily Kang APRN - Last Filed: 03/14/25 16:49> Family History Family History: Family History Mother Family history of malignant neoplasm Patient's mother is Sibling Patient's sister is in good health Patient's brother is in good health Father Patient's father is <Emily Kang APRN - Last Filed: 03/14/25 16:49> Social History Social History: Social History Smoking status: Never smoker Second hand tobacco smoke exposure: No Alcohol intake: former Alcohol use details: wine rarely Substance use: never Substance use type: does not use Lack of Transportation: No Lack of Food: Never True Current Housing: I Have Housing Concerned About Future Housing: No Difficulty Paying Gas/Electric Bills: No Difficulty Paying for Meds: No Currently Unemployed: No Education: Associate Degree Difficulty w/ Childcare or Family Care: No Living arrangements: with family Gender identity (if verbalized by the patient): Male <Emily Kang APRN - Last Filed: 03/14/25 16:49> Exam 2 Narrative: GENERAL: [Well-appearing, well-nourished, and in no acute distress.] HEAD: [Normocephalic, atraumatic.] EYES: [PERRLA and EOMI.] ENT: Nares clear, no rhinorrhea or epistaxis. Mucous membranes moist. NECK: Supple. CHEST: [Clear to auscultation. No respiratory distress.] HEART: [Regular rate and rhythm]. No murmur heard. [Normal peripheral pulses.] ABDOMEN: Benign abdominal examination, soft nontender nondistended. No tenderness of palpation. No peritonitis. EXTREMITIES: Normal range of motion. [No edema.] SKIN: Warm, dry, no rash. NEURO: [No focal deficits]. Alert and oriented [x3.] PSYCH: [Normal mood and affect.] <Jose Mejia MD - Last Filed: 03/15/25 00:06> Course Vital Signs Vital signs: Vital Signs Temperature 36.4 C 03/14/25 16:31 Pulse Rate 84 03/14/25 16:31 Respiratory Rate 20 03/14/25 16:31 Blood Pressure 147/77 H 03/14/25 16:31 Pulse Oximetry 100 03/14/25 16:31 Oxygen Delivery Room Air 03/14/25 16:31 Temperature 36.6 C 03/14/25 19:46 Pulse Rate 67 03/14/25 21:15 Respiratory Rate 25 H 03/14/25 21:15 Blood Pressure 146/81 H 03/14/25 21:15 Pulse Oximetry 100 03/14/25 21:15 Oxygen Delivery Room Air 03/14/25 19:46 <Emily Kang, [employer]ER - Last Filed: 03/14/25 16:49> Vital Signs Temperature 36.4 C 03/14/25 16:31 Pulse Rate 84 03/14/25 16:31 Respiratory Rate 20 03/14/25 16:31 Blood Pressure 147/77 H 03/14/25 16:31 Pulse Oximetry 100 03/14/25 16:31 Oxygen Delivery Room Air 03/14/25 16:31 Temperature 36.6 C 03/14/25 19:46 Pulse Rate 67 03/14/25 21:15 Respiratory Rate 25 H 03/14/25 21:15 Blood Pressure 146/81 H 03/14/25 21:15 Pulse Oximetry 100 03/14/25 21:15 Oxygen Delivery Room Air 03/14/25 19:46 <Jose Mejia MD - Last Filed: 03/15/25 00:06> MDM - Abdominal Pain MDM Narrative Medical decision making narrative: 79-year-old male who presents to the ER with bilateral lower abdominal pain that started 2 days ago. He also endorses nausea, vomiting, and diarrhea. Patient endorses a history of Parkinson's disease, artificial heart valve, urinary retention, and melanoma. He denies any recent fevers, shortness of breath, or chest pain. Patient denies any recent sick contacts. He reports the last bowel movement was approximately half an hour prior to arrival and it was normal for him. Patient has a benign physical examination with a soft, nontender, nondistended abdomen. States that he had watery diarrhea yesterday and today and some mild nausea but no vomiting. Abdominal pain got better with Tylenol and he states he feels better after using the bathroom. No abdominal surgical history. He is hemodynamically stable with normal vital signs. Suspect IBS, gastroenteritis, viral infection, low suspicion diverticulitis or appendicitis or other intra- abdominal infection or abscess. Possible UTI. Labs were obtained, urinalysis ordered. He was given fluids Bentyl and Zofran and re-evaluated. Low suspicion needing advanced imaging at this time. Patient's lab shows some slight dehydration with ketones in his urine and mildly elevated BUN, mild leukocytosis but no significant anemia. Electrolytes are unremarkable. LFTs normal. Glucose normal. Kidney function normal. Patient re-evaluated and had no symptoms felt much better after fluids and Bentyl. Suspect viral gastroenteritis. We discussed strict return precautions including recurrence or worsening abdominal pain, developing vomiting, bloody bowel movements, fever or any other issues and he should return to the ED otherwise we have sent him home with Bentyl and Zofran and follow-up instructions with his PCP. Patient and family verbalized understanding and were safe and comfortable going home at this time. <Jose Mejia MD - Last Filed: 03/15/25 00:06> Medical Records Attestation: I reviewed the patient's medical records. <Jose Mejia MD - Last Filed: 03/15/25 00:06> Lab Data Attestation: I reviewed the patient's lab results. <Jose Mejia MD - Last Filed: 03/15/25 00:06> Result diagrams: 03/14/25 19:49 03/14/25 19:49 <Emily Kang APRN - Last Filed: 03/14/25 16:49> Labs: Lab Results 03/14/25 Range/Units 19:49 WBC 12.3 H (4.5-10.0) K/mm3 RBC 4.23 L (4.6-6.20) M/mm3 Hgb 13.4 L (14.0-18.0) g/dL Hct 40.0 L (42.0-52.0) % MCV 94.6 (80-100) fl MCH 31.7 (26-34) pg MCHC 33.5 (32-36) g/dl RDW 12.6 (11.5-14.5) % Plt Count 172 (150-375) k/mm3 MPV 10.2 (7.4-10.4) fl Immature Gran % (Auto) 0.4 (0-0.5) % Neut % (Auto) 75.2 H (45.5-73.1) % Lymph % (Auto) 13.8 L (18.3-44.2) % [place] % (Auto) 9.1 H (2.6-8.5) % Eos % (Auto) 1.1 (0-4.4) % Baso % (Auto) 0.4 (0.2-1.2) % Lymph # (Auto) 1.70 (0.9-3.2) K/mm3 [place] # (Auto) 1.1 H (0.1-0.6) K/mm3 Eos # (Auto) 0.1 (0-0.3) K/mm3 Baso # (Auto) 0.1 (0.0-0.1) K/mm3 Abs Immat Gran (auto) 0.05 H (0.00-0.031) K/mm3 Absolute Neuts (auto) 9.3 H (1.3-6.7) K/mm3 Absolute Nucleated RBC 0.000 (0.0-0.012) K/mm3 Nucleated RBC % 0.0 (0.0-0.2) % PT 14.2 (11.1-14.7) Seconds INR 1.1 APTT 35.3 (22.3-36.8) Seconds Sodium 135 L (137-145) mmol/L Potassium 4.1 (3.4-5.0) mmol/L Chloride 103 (98-107) mmol/L Carbon Dioxide 24 (22-30) mmol/L Anion Gap 8 (4-12) mmol/L BUN 35 H D (9-20) mg/dL Creatinine 0.99 (0.7-1.3) mg/dL Estim Creat Clear Calc 55 ml/min Estimated GFR > 60 (59 - ) Glucose 100 (65-110) mg/dL Calcium 9.2 (8.4-10.2) mg/dL Total Bilirubin 0.8 (0.2-1.3) mg/dL AST 31 (17-59) U/L ALT 8 (6-50) U/L Alkaline Phosphatase 128 H (38-126) U/L Total Protein 7.7 (6.3-8.2) g/dL Albumin 4.3 (3.5-5.1) g/dL Lipase 63 (23-300) U/L Urine Color Yellow (Yellow) Urine Appearance Clear (Clear) Urine pH 5.5 (5.0-9.0) Ur Specific [place] 1.028 (1.001-1.035) Urine Protein Trace (Negative) mg/dL Urine Glucose (UA) Negative (Negative) mg/dL Urine Ketones Trace H (Negative) mg/dL Ur Blood (Man) Negative (Negative) Urine Nitrate Negative (Negative) Urine Bilirubin Negative (Negative) Urine Urobilinogen 0.2 (<2.0) mg/dL Leukocyte Esterase Rfl Negative (Negative) AVE/UL Urine RBC 0-2 (0-2) /hpf Urine WBC 0-5 (0-3) /hpf Ur Squamous Epith Cells None seen (Few) /hpf Urine Bacteria None seen /hpf Urine Casts 0-2 Influenza A (RT-PCR) Negative (Negative) Influenza B (RT-PCR) Negative (Negative) RSV (RT-PCR) Negative (Negative) SARS-CoV-2 RNA (RT-PCR) Negative (Negative) <Emily Kang, [employer] TENDER - Last Filed: 03/14/25 16:49> Lab Results 03/14/25 Range/Units 19:49 WBC 12.3 H (4.5-10.0) K/mm3 RBC 4.23 L (4.6-6.20) M/mm3 Hgb 13.4 L (14.0-18.0) g/dL Hct 40.0 L (42.0-52.0) % MCV 94.6 (80-100) fl MCH 31.7 (26-34) pg MCHC 33.5 (32-36) g/dl RDW 12.6 (11.5-14.5) % Plt Count 172 (150-375) k/mm3 MPV 10.2 (7.4-10.4) fl Immature Gran % (Auto) 0.4 (0-0.5) % Neut % (Auto) 75.2 H (45.5-73.1) % Lymph % (Auto) 13.8 L (18.3-44.2) % [place] % (Auto) 9.1 H (2.6-8.5) % Eos % (Auto) 1.1 (0-4.4) % Baso % (Auto) 0.4 (0.2-1.2) % Lymph # (Auto) 1.70 (0.9-3.2) K/mm3 [place] # (Auto) 1.1 H (0.1-0.6) K/mm3 Eos # (Auto) 0.1 (0-0.3) K/mm3 Baso # (Auto) 0.1 (0.0-0.1) K/mm3 Abs Immat Gran (auto) 0.05 H (0.00-0.031) K/mm3 Absolute Neuts (auto) 9.3 H (1.3-6.7) K/mm3 Absolute Nucleated RBC 0.000 (0.0-0.012) K/mm3 Nucleated RBC % 0.0 (0.0-0.2) % PT 14.2 (11.1-14.7) Seconds INR 1.1 APTT 35.3 (22.3-36.8) Seconds Sodium 135 L (137-145) mmol/L Potassium 4.1 (3.4-5.0) mmol/L Chloride 103 (98-107) mmol/L Carbon Dioxide 24 (22-30) mmol/L Anion Gap 8 (4-12) mmol/L BUN 35 H D (9-20) mg/dL Creatinine 0.99 (0.7-1.3) mg/dL Estim Creat Clear Calc 55 ml/min Estimated GFR > 60 (59 - ) Glucose 100 (65-110) mg/dL Calcium 9.2 (8.4-10.2) mg/dL Total Bilirubin 0.8 (0.2-1.3) mg/dL AST 31 (17-59) U/L ALT 8 (6-50) U/L Alkaline Phosphatase 128 H (38-126) U/L Total Protein 7.7 (6.3-8.2) g/dL Albumin 4.3 (3.5-5.1) g/dL Lipase 63 (23-300) U/L Urine Color Yellow (Yellow) Urine Appearance Clear (Clear) Urine pH 5.5 (5.0-9.0) Ur Specific [place] 1.028 (1.001-1.035) Urine Protein Trace (Negative) mg/dL Urine Glucose (UA) Negative (Negative) mg/dL Urine Ketones Trace H (Negative) mg/dL Ur Blood (Man) Negative (Negative) Urine Nitrate Negative (Negative) Urine Bilirubin Negative (Negative) Urine Urobilinogen 0.2 (<2.0) mg/dL Leukocyte Esterase Rfl Negative (Negative) AVE/UL Urine RBC 0-2 (0-2) /hpf Urine WBC 0-5 (0-3) /hpf Ur Squamous Epith Cells None seen (Few) /hpf Urine Bacteria None seen /hpf Urine Casts 0-2 Influenza A (RT-PCR) Negative (Negative) Influenza B (RT-PCR) Negative (Negative) RSV (RT-PCR) Negative (Negative) SARS-CoV-2 RNA (RT-PCR) Negative (Negative) <Jose Mejia MD - Last Filed: 03/15/25 00:06> Discharge Plan Discharge Clinical Impression: Gastroenteritis <Emily Kang APRN - Last Filed: 03/14/25 16:49> Patient Disposition: Home <Emily Kang APRN - Last Filed: 03/14/25 16:49> Condition: Stable <Emily Kang APRN - Last Filed: 03/14/25 16:49> Instructions: Antibiotic Form, Gastroenteritis (DC), Abdominal Pain (ED) <Emily Kang APRN - Last Filed: 03/14/25 16:49> Additional Instructions: Symptoms consistent with gastroenteritis. Return with any worsening abdominal pain, developing new symptoms such as vomiting, profound dehydration, rectal bleeding, fevers or any other issues. Follow-up with regular primary care provider otherwise. We have sent you some medications for abdominal cramping and nausea. Return with issues. <Emily Kang, [employer] TENDER - Last Filed: 03/14/25 16:49> Patient Language: Frisian <Emily Kang APRN - Last Filed: 03/14/25 16:49> Prescriptions: New dicyclomine 20 mg tablet 20 mg PO TID PRN (Reason: abdominal pain) Qty: 20 0RF ondansetron 4 mg tablet,disintegrating 4 mg PO Q8H PRN (Reason: nausea and vomiting) Qty: 10 0RF No Action cetirizine [Zyrtec] 10 mg Tablet 10 mg PO PRN PRN (Reason: Congestion) Adult Aspirin 81 mg Tablet 81 mg PO DAILY ferrous sulfate [FeroSul] 325 mg (65 mg iron) tablet 325 mg PO DAILY carbidopa-levodopa 25-100 mg tablet 1 tablet PO TID famotidine 20 mg tablet 20 mg PO BID PRN tramadol 50 mg tablet 50 mg PO Q8H PRN (Reason: pain) Qty: 60 0RF fluticasone propionate 50 mcg/actuation spray,suspension 2 spray intranasal DAILY Qty: 16 0RF Rx Instructions: administer into each nostril azithromycin [Zithromax Z-Randy] 250 mg tablet See Rx Instructions PO .COMPLEX Qty: 6 0RF Rx Instructions: For 250 mg dose pack: take 500 mg today (day 1), then 250 mg for 4 days (days 2-5) PO midodrine 2.5 mg tablet PO ONCE donepezil 5 mg tablet 5 mg PO QHS Qty: 90 0RF Rx Instructions: Take one tablet po qd x 30 days, then increase to two tablets po qd trazodone 50 mg tablet 50 mg PO QHS PRN (Reason: insomnia) Qty: 90 0RF clopidogrel 75 mg tablet 75 mg PO DAILY atorvastatin 20 mg tablet 20 mg PO DAILY sodium chloride 0.9 % aerosol,spray 3 spray intranasal ONCE PRN (Reason: nasal congestion) Qty: 85 0RF tadalafil [Cialis] 20 mg tablet 20 mg PO DAILY PRN (Reason: sexual activity) Qty: 30 1RF Rx Instructions: administer approximately 30min before sexual activity; do not use more than 1 dose per 24hrs Mucinex DM 30-600 mg tablet extended release 12 hr See Rx Instructions PO Q12H PRN (Reason: cough) Qty: 30 0RF Rx Instructions: 1-2 tablest orally every 12 hours PRN; amoxicillin 500 mg capsule 500 mg PO DAILY PRN (Reason: prior to dental procedure) Qty: 60 0RF Rx Instructions: take 4 tablets one hour before dental procedure benzonatate 100 mg capsule 100 mg PO TID PRN (Reason: cough) Qty: 30 0RF ondansetron 4 mg tablet,disintegrating 4 mg PO Q8H PRN (Reason: nausea and vomiting) Qty: 14 0RF <Emily Kang APRN - Last Filed: 03/14/25 16:49> Follow-up/Referrals: Neil Wu MD [Primary Care Provider, Family Practice] <Emily Kang APRN - Last Filed: 03/14/25 16:49> Time of Disposition: 20:49 <Emily Kang APRN - Last Filed: 03/14/25 16:49> 20:49 <Jose Mejia MD - Last Filed: 03/15/25 00:06>
[2025-03-14] MEDS: LACTATED RINGERS 1,000 ML 999 ML IV CONT (19:55)
[2025-03-14] MEDS: DICYCLOMINE HCL 10 MG CAPSULE 20 MG PO (19:55)
[2025-03-14] MEDS: ONDANSETRON INJ 4 MG/2 ML VIAL IV PUSH (19:55)
[2025-03-14 19:59] LABS: Hematocrit 40.0 % (42.0-52.0); Hemoglobin 13.4 g/dL (14.0-18.0); Immature Granulocyte Percent A 0.4 % (0-0.5); Lymphocytes Absolute Auto 1.70 K/mm3 (0.9-3.2); Mean Corpuscular HGB Conc 33.5 g/dl (32-36); Mean Corpuscular Hemoglobin 31.7 pg (26-34); Mean Corpuscular Volume 94.6 fl (80-100); Nucleated Red Blood Cells Absolute Auto 0.000 K/mm3 (0.0-0.012); Nucleated Red Blood Cells Perc 0.0 % (0.0-0.2); Platelet Count Result 172 k/mm3 (150-375); Red Blood Count 4.23 M/mm3 (4.6-6.20); White Blood Count 12.3 K/mm3 (4.5-10.0)
[2025-03-14 20:03] LABS: Add Urine Microscopic? YES; Appearance Urine Clear (Clear); Glucose Urine UA Negative (Negative); Leukocyte Esterase Ur Negative LEU/UL (Negative); Nitrate Urine Negative (Negative); Non Pathogenic Casts 0-2; Specific Grav Ur 1.028 (1.001-1.035)
[2025-03-14 20:10] LABS: INR 1.1; Prothrombin Time 14.2 Seconds (11.1-14.7)
[2025-03-14 20:11] LABS: Alanine Aminotransferase 8 U/L (6-50); Albumin Level 4.3 g/dL (3.5-5.1); Alkaline Phosphatase 128 U/L (38-126); Anion Gap 8 mmol/L (4-12); Aspartate Amino Transferase 31 U/L (17-59); Bilirubin,Total 0.8 mg/dL (0.2-1.3); Blood Urea Nitrogen 35 mg/dL (9-20); Calcium 9.2 mg/dL (8.4-10.2); Carbon Dioxide 24 mmol/L (22-30); Chloride 103 mmol/L (98-107); Estimated CRCL calculation 55 ml/min; Estimated Glomerular Filt Rate > 60; Glucose 100 mg/dL (65-110); Lipase 63 U/L (23-300); Partial Thromboplastin Time 35.3 Seconds (22.3-36.8); Potassium 4.1 mmol/L (3.4-5.0); Sodium 135 mmol/L (137-145); Total Protein 7.7 g/dL (6.3-8.2)
[2025-03-14 20:34] LABS: Influenza A QL RT-PCR Negative (Negative); Influenza B QL RT-PCR Negative (Negative); RSV RNA, RT-PCR Negative (Negative); SARS-CoV-2 RNA PCR Negative (Negative)
== END 2025-03-14 21:41 | disposition home or self-care (01) ==
PROVIDERS: Registered Nurse; Emergency Provider Student in an Organized Health Care Education/Training Program; PCP Family Medicine
DX: K52.9 Noninfective gastroenteritis and colitis, unspecified (principal); Z20.822 Contact with and (suspected) exposure to COVID-19; G20.A1 Parkinson's disease without dyskinesia, without mention of fluctuations; E78.5 Hyperlipidemia, unspecified; K21.9 Gastro-esophageal reflux disease without esophagitis; Z95.2 Presence of prosthetic heart valve; Z85.820 Personal history of malignant melanoma of skin; Z79.02 Long term (current) use of antithrombotics/antiplatelets; Z79.899 Other long term (current) drug therapy; Z79.82 Long term (current) use of aspirin
CPT/HCPCS: 36415; 80053; 81001; 83690; 85025; 85610; 85730; 87637; 93005; 96361; 96374; 99284; A9270; J2405; J7120